=== PATIENT | male | born 1960 | race Caucasian/White ===

== ENCOUNTER 2019-07-12 13:11 | Outpatient (CLI) | payer MEDICAID, SELFPAY ==
--- NOTE | 2019-07-12 | MR_ITS ---
WS: [id number] MRI BRAIN WITHOUT CONTRAST HISTORY: HISTORY OF CVA WITH RESIDUAL DEFICIT COMPARISON: None available. TECHNIQUE: Diffusion imaging, multiplanar T1, T2 and FLAIR imaging obtained. No evidence for acute infarct. Moderate periventricular confluent white matter signal abnormality. Th ere is additional subcortical white matter signal abnormalities. Prior lacunar infarct bilateral caud ate heads, RIGHT mallory and thalamus. Focal area of encephalomalacia with volume loss involving the pos terior RIGHT frontal lobe. No acute hemorrhage. No prior hemorrhage. Ventricles and extra-axial spaces are mildly dilated. No inferior displacement of cerebellar tonsils. The sella turcica and pituitary gland are unremarkabl e. Posterior fossa is also unremarkable. Dural venous sinuses and diomede of Ramírez demonstrate no abnormality on this unenhanced studies. Paranasal sinuses: Clear. Mastoid air cells: Normal. Calvarium and scalp: Intact. MR/MR head wo con* [id number] IMPRESSION: 1. No acute infarct or hemorrhage. 2. Moderate atrophy with extensive chronic white matter disease and numerous b ilateral lacunar infarcts as described above.
== END 2019-07-12 13:12 | disposition home or self-care (01) ==
LOC: RADSHAW 13:14
PROVIDERS: PCP Physician Assistant Medical; Visit Provider Physician Assistant Medical
DX: R51 Headache (principal); Z86.73 Personal history of transient ischemic attack (TIA), and cerebral infarction without residual deficits; G31.9 Degenerative disease of nervous system, unspecified
CPT/HCPCS: 70551

== ENCOUNTER 2020-01-31 08:33 | Inpatient (IN) | payer MEDICAID, SELFPAY ==
[2020-01-31] VITALS (20 sets, daily range): BP systolic 107–149; BP diastolic 56–97; PULSE 80–106; RESP 11–27; TEMP 36.4–37.6; O2SAT 87–100
--- NOTE | 2020-01-31 08:43 | XRR_ITS ---
PROCEDURE INFORMATION: Exam: XR Chest, 1 View Exam date and time: 01/31/2020 8:56 AM Age: 59 years old Clinical indication: Dyspnea TECHNIQUE: Imaging protocol: XR of the chest Views: 1 view. COMPARISON: No relevant prior studies available. FINDINGS: Lungs: Patchy diffuse interstitial and alveolar airspace disease including rather dense consolidation within the lung bases left greater than right. Pleural space: Subpulmonic effusions left greater than right. Moderate on the left. Heart/Mediastinum: Unremarkable. No cardiomegaly. Bones/joints: Unremarkable. XR/XR chest 1V portable [id number] IMPRESSION: . Patchy diffuse interstitial and alveolar airspace disease including rather dense consolidation within the lung bases left greater than right. . Edema and/or pneumonia. Subpulmonic effusions left greater than right. Moderate on the left.
--- NOTE | 2020-01-31 08:45 | ECG_ITS ---
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 Measurements Intervals [place] Rate: 94 P: 76 LA: 193 QRS: 65 QRSD: 101 T: 215 QT: 364 QTc: 456 Interpretive Statements SINUS RHYTHM LEFT VENTRICULAR HYPERTROPHY AND ST-T CHANGE [VOLTAGE CRITERIA PLUS ST/T ABNORMALITY] No previous ECG available for comparison Electronically Signed On 01-31-2020 22:29:01 WARP DOFFER by Mitul Dwyer M.D. [id number] f
[2020-01-31 08:55] LABS: Basophils % 0.2 %; Eosinophils % 0.3 %; Hematocrit 29.6 % (42.0-52.0); Lymphocytes # 0.5 10^3/uL (0.8-4.8); Mean Corpuscular HGB Conc 30.4 g/dL (30.0-36.0); Mean Corpuscular Hemoglobin 28.2 pg (28.0-34.0); Mean Corpuscular Volume 92.8 fL (80-94); Mean Platelet Volume 10.7 fL (7.4-10.4); Monocytes # 0.5 10^3/uL (0.2-0.9); Monocytes % 5.3 %; Neutrophils # 7.59 10^3/uL (1.8-7.7); Neutrophils % 87.9 %; Nucleated Red Blood Cells % 0 %; Platelet Count 194 10^3/cmm (130-400); Red Blood Count 3.19 10^6/uL (4.1-5.3); Red Cell Distribution Width 14.2 % (12.1-15.1); White Blood Count 8.7 10^3/uL (4.0-10.0)
[2020-01-31 09:10] LABS: ABG PCO2 43.1 mmHg (35-45); ABG PH Result 7.41 (7.35-7.45); Arterial Blood Gas Hematocrit 24.7 % (42-52); Base Excess ABG 2.2 mmol/L (-2.0-2.0); Blood Gas Allen Test Pos; Blood Gas Operator Identificat CAK; Blood Gas Sample Site Radial, left; Blood Gas Sample Type Arterial; HCO3 ABG 27.2 mmol/L (22-26); Oxygen Device NRB; PO2 ABG 63.3 mmHg (80.0-100.0)
[2020-01-31 09:12] LABS: Fibrinogen 431 mg/dL (174-498)
[2020-01-31 09:22] LABS: D Dimer 7.27 ug/mIFEU (0-0.59)
--- NOTE | 2020-01-31 09:26 | CT_ITS ---
WS: [id number] CTA OF THE CHEST WITH PULMONARY EMBOLISM PROTOCOL TECHNIQUE: High-resolution contrast enhanced CTA of the chest with coronal and sagittal reformatted i mages with pulmonary embolism protocol. MIP images are also reviewed. CLINICAL INFORMATION: hypoxia COMPARISON: None. DLP: 618.[address] scans at [facility] use at least one of these dose optimization techniques: automat ed exposure control; mA and/or kV adjustment per patient size (includes targeted exams where dose is matched to clinical indication); or iterative reconstruction. FINDINGS: Proximal main pulmonary arteries are normal. Normal segmental and subsegmental pulmonary arteries. No evidence of pulmonary embolus. Moderate chronic emphysematous changes. Small right greater than left pleural effusions with compress lawrence atelectasis in the lung bases. Subsegmental atelectasis with subsegmental consolidation in the le ft lower lobe medially. A few hazy groundglass infiltrates in the right middle lobe and right lower l obe. Enlarged mediastinal and peribronchial lymph nodes likely reactive. Normal caliber ascending thoracic aorta. Chronic appearing aneurysmal descending thoracic aorta with chronic appearing dissection flap and per ipheral mural thrombus. Evidence of prior infrarenal aneurysm repair in the abdomen. Aneurysmal upper abdominal aorta measuring 5.1 x 4.4 cm AP by transverse. Bilateral renal cortical atrophy. Adrenal glands are normal. CT/CT angio chest PE protcl [id number] IMPRESSION: 1. No evidence of pulmonary embolus. 2. Small right greater than left pleural effusions with compressive atelectasi s in the lung bases. Subtotal subsegmental consolidative atelectasis in the lef t lower lobe. 3. A few hazy groundglass infiltrates in the right upper lobe and right middle lobe. 4. Reactive anterior mediastinal and peribronchial lymph nodes. 5. Aneurysmal descending thoracic aorta with chronic appearing dissection flap . Evidence of prior aneurysm repair in the infrarenal abdominal aorta. 6. Aneurysmal upper abdominal aorta measuring 5.1 x 4.4 CM. Notified Scout Green DO at 01/31/2020 2:20 PM.
--- NOTE | 2020-01-31 09:26 | W.ED.SOB ---
HPI - SOB/Dyspnea General: Chief Complaint: Shortness of Breath/Dyspnea Stated Complaint: DIFFICULTY BREATHING Time Seen by Provider: 01/31/20 08:35 History of Present Illness: HPI Narrative: 59-year-old male brought in by EMS from local retirement. Is a history of CVA they think he may have aspirated overnight to get some food and something to drink evidently he was exposed to when he was on monitored he is having increased oxygen requirements requiring a mask now. Denies chest pain no abdominal pain no vomiting or diarrhea he is complaining of shortness of breath. MD elicited complaint: shortness of breath and cough Pertinent past history: COPD and pneumonia Onset (ago): hour(s) Timing: constant Severity: severe Exacerbating factors: lying flat Relieving factors: oxygen, rest and upright position Known history of: aspiration pneumonia Associated symptoms: Reports chest congestion, chest pain and cough; Deny abdominal pain, diaphoresis, dizziness, extremity pain, fever(s), hemoptysis, lightheadedness, myalgias, nausea, orthopnea, palpitations, paresthesias, polydipsia, polyuria, rash, sense of impending doom, syncope or vomiting Treatment prior to arrival: oxygen and bronchodilator Review of Systems Const: Denies: fever(s) or diaphoresis ENMT: Denies: throat pain, ear or mastoid pain, nasal discharge or nasal congestion Card: Reports: chest pain; Denies: palpitations, lightheadedness, syncope or orthopnea Resp: Reports: chest congestion; Denies: hemoptysis GI: Denies: abdominal pain, nausea or vomiting : Denies: flank pain, dysuria, urinary frequency or urinary urgency Musc: Denies: extremity pain Skin/Breast: Denies: rash or pruritus Neuro: Denies: dizziness Endo: Denies: polydipsia [facility] ED PFSH: Medical History (Updated 01/31/20 @ 14:48 by Scout Green DO) CVA (cerebral vascular accident) Physical Exam HENMT: COMMON NORMALS: normocephalic and atraumatic HEAD & SCALP: normocephalic and atraumatic Eye: COMMON NORMALS: Equal, round and reactive pupils present, EOMs intact bilaterally, conjunctivae normal and no scleral icterus CONJUNCTIVA: Yes conjunctivae normal PUPIL: Yes Equal, round and reactive pupils present Neck/C-Spine: COMMON NORMALS: full ROM, no lymphadenopathy, supple and no JVD Lymph: LYMPHATIC: no lymphadenopathy noted and no lymphedema noted Cardio: COMMON NORMALS: no JVD, regular rate, regular rhythm and No murmurs present (Cardio) RATE: regular rate RHYTHM: regular rhythm GI: COMMON NORMALS: Soft to palpation and No hepatosplenomegaly present AUSCULTATION: Yes normoactive bowel sounds PALPATION: Yes Soft to palpation, No Tenderness to palpation present (GI), No Guarding due to palpation present (GI) and Yes No hepatosplenomegaly present Extremity: COMMON NORMALS: normal to inspection, capillary refill normal, no clubbing, cyanosis or edema, no calf tenderness and no pedal edema Skin: COMMON NORMALS: no rashes or lesions noted GENERAL SKIN EXAM: no rashes or lesions noted Course Vital Signs: Vital signs: Vital Signs Temperature 97.5 F L 01/31/20 08:33 Pulse Rate 83 01/31/20 14:15 Respiratory Rate 20 H 01/31/20 11:13 Blood Pressure 127/69 01/31/20 11:13 Pulse Oximetry 93 01/31/20 14:15 MDM - SOB/Dyspnea MDM Narrative: Medical decision making narrative: Patient has chronic kidney disease looks like is baseline kidney function is 2.2-2.5 he is hyperkalemic however which is new. We are giving him IV fluid boluses D-dimer is elevated but his CTA was negative he does have bilateral pneumonias we will put him on Zosyn and Levaquin initially here discussed with Dr. Rawls will admit him to the ICU continue on BiPAP. Lab Data: Labs: Lab Results 01/31/20 01/31/20 01/31/20 Range/Units 08:50 08:50 08:50 WBC 8.7 (4.0-10.0) 10^3/ uL RBC 3.19 L (4.1-5.3) 10^6/u L Hgb 9.0 L (11.7-16.6) g/dL Hct 29.6 L (42.0-52.0) % MCV 92.8 (80-94) fL MCH 28.2 (28.0-34.0) pg MCHC 30.4 (30.0-36.0) g/dL RDW 14.2 (12.1-15.1) % Plt Count 194 (130-400) 10^3/c mm MPV 10.7 H (7.4-10.4) fL Neut % (Auto) 87.9 % Lymph % (Auto) 6.0 % Hooker % (Auto) 5.3 % Eos % (Auto) 0.3 % Baso % (Auto) 0.2 % Neut # (Auto) 7.59 (1.8-7.7) 10^3/u L Lymph # (Auto) 0.5 L (0.8-4.8) 10^3/u L Hooker # (Auto) 0.5 (0.2-0.9) 10^3/u L Eos # (Auto) 0.0 (0.0-0.8) 10^3/u L Baso # (Auto) 0.0 (0.0-0.1) 10^3/u L Nucleated RBC % (a uto) 0 % Nucleated RBCs # 0.0 /100WBC Fibrinogen 431 (174-498) mg/dL D-Dimer 7.27 H (0-0.59) ug/mIFE U Specimen Type Sample Site ABG pH (7.35-7.45) ABG pCO2 (35-45) mmHg ABG pO2 (80.0-100.0) mmH g ABG HCO3 (22-26) mmol/L ABG Base Excess (-2.0-2.0) mmol/ L Shen Test Hematocrit (42-52) % O2 Delivery Device O2 Liters/Min % Health Associate ID Sodium Cancelled Potassium Cancelled Chloride Cancelled Carbon Dioxide Cancelled Anion Gap Cancelled BUN Cancelled Creatinine Cancelled GFR Calculation Cancelled Glucose Cancelled Calculated Osmolal ity Cancelled Lactic Acid (0.5-2.2) mmol/L Calcium Cancelled Total Bilirubin Cancelled AST Cancelled ALT Cancelled Alkaline Phosphata se Cancelled Lactate Dehydrogen ase Cancelled C-Reactive Protein Cancelled Total Protein Cancelled Albumin Cancelled Globulin Cancelled Procalcitonin Cancelled SARS-CoV-2 Ag (Rap id) (Negative) 01/31/20 01/31/20 01/31/20 Range/Units 08:58 09:06 09:38 WBC (4.0-10.0) 10^3/ uL RBC (4.1-5.3) 10^6/u L Hgb (11.7-16.6) g/dL Hct (42.0-52.0) % MCV (80-94) fL MCH (28.0-34.0) pg MCHC (30.0-36.0) g/dL RDW (12.1-15.1) % Plt Count (130-400) 10^3/c mm MPV (7.4-10.4) fL Neut % (Auto) % Lymph % (Auto) % Hooker % (Auto) % Eos % (Auto) % Baso % (Auto) % Neut # (Auto) (1.8-7.7) 10^3/u L Lymph # (Auto) (0.8-4.8) 10^3/u L Hooker # (Auto) (0.2-0.9) 10^3/u L Eos # (Auto) (0.0-0.8) 10^3/u L Baso # (Auto) (0.0-0.1) 10^3/u L Nucleated RBC % (a uto) % Nucleated RBCs # /100WBC Fibrinogen (174-498) mg/dL D-Dimer (0-0.59) ug/mIFE U Specimen Type Arterial Sample Site Radial, left ABG pH 7.41 (7.35-7.45) ABG pCO2 43.1 (35-45) mmHg ABG pO2 63.3 L (80.0-100.0) mmH g ABG HCO3 27.2 H (22-26) mmol/L ABG Base Excess 2.2 H (-2.0-2.0) mmol/ L Shen Test Pos Hematocrit 24.7 L (42-52) % O2 Delivery Device Nrb O2 Liters/Min 15.0 % Health Associate ID Cak Sodium 134 L Potassium 5.8 H Chloride 93 L Carbon Dioxide 26 Anion Gap 20.8 H BUN 39 H Creatinine 2.7 H GFR Calculation 24.3 L Glucose 127 H Calculated Osmolal ity 289 Lactic Acid (0.5-2.2) mmol/L Calcium 9.2 Total Bilirubin 0.7 AST 19 ALT 7 Alkaline Phosphata se 159 H Lactate Dehydrogen ase 259 H C-Reactive Protein 25.1 H Total Protein 6.5 L Albumin 3.9 Globulin 2.6 Procalcitonin 0.28 SARS-CoV-2 Ag (Rap id) Negative (Negative) 01/31/20 Range/Units 10:49 WBC (4.0-10.0) 10^3/ uL RBC (4.1-5.3) 10^6/u L Hgb (11.7-16.6) g/dL Hct (42.0-52.0) % MCV (80-94) fL MCH (28.0-34.0) pg MCHC (30.0-36.0) g/dL RDW (12.1-15.1) % Plt Count (130-400) 10^3/c mm MPV (7.4-10.4) fL Neut % (Auto) % Lymph % (Auto) % Hooker % (Auto) % Eos % (Auto) % Baso % (Auto) % Neut # (Auto) (1.8-7.7) 10^3/u L Lymph # (Auto) (0.8-4.8) 10^3/u L Hooker # (Auto) (0.2-0.9) 10^3/u L Eos # (Auto) (0.0-0.8) 10^3/u L Baso # (Auto) (0.0-0.1) 10^3/u L Nucleated RBC % (a uto) % Nucleated RBCs # /100WBC Fibrinogen (174-498) mg/dL D-Dimer (0-0.59) ug/mIFE U Specimen Type Sample Site ABG pH (7.35-7.45) ABG pCO2 (35-45) mmHg ABG pO2 (80.0-100.0) mmH g ABG HCO3 (22-26) mmol/L ABG Base Excess (-2.0-2.0) mmol/ L Shen Test Hematocrit (42-52) % O2 Delivery Device O2 Liters/Min % Health Associate ID Sodium Potassium Chloride Carbon Dioxide Anion Gap BUN Creatinine GFR Calculation Glucose Calculated Osmolal ity Lactic Acid 1.4 (0.5-2.2) mmol/L Calcium Total Bilirubin AST ALT Alkaline Phosphata se Lactate Dehydrogen ase C-Reactive Protein Total Protein Albumin Globulin Procalcitonin SARS-CoV-2 Ag (Rap id) (Negative) Discharge Plan Discharge Patient Disposition: Admitted As Inpatient Clinical Impression: Aspiration pneumonia, Acute hyperkalemia, Chronic kidney disease (CKD) Condition: Stable Coding Level of Care Code ED Discount Clerk for Chg Fwd Exam Comprehensive
[2020-01-31 10:35] LABS: Procalcitonin 0.28 ng/mL (0-0.5)
[2020-01-31 10:46] LABS: SARS Covid-2 Antigen Negative (Negative)
[2020-01-31 10:46] LABS: Alanine Aminotransferase 7 U/L (0-41); Albumin Level 3.9 g/dL (3.5-5.2); Alkaline Phosphatase 159 IU/L (40-130); Anion Gap 20.8 (5-19); Aspartate Amino Transferase 19 U/L (0-40); Blood Urea Nitrogen 39 mg/dL (6-20); C Reactive Protein 25.1 mg/L (0.0-4.9); Calcium 9.2 mg/dL (8.5-10.5); Carbon Dioxide 26 mmol/L (22-29); Chloride 93 mmol/L (98-107); Globulin 2.6 g/dL (1.3-4.6); Glomerular Filtration Rate 24.3 mL/min (90-130); Glucose 127 mg/dL (65-115); Osmolality Calculated 289 mOsm/kg (285-295); Potassium 5.8 mmol/L (3.5-5.1); Sodium 134 mmol/L (136-145); Total Bilirubin 0.7 mg/dL (0.15-1.2); Total Protein 6.5 g/dL (6.6-8.7)
[2020-01-31 10:48] LABS: Lactate Dehydrogenase 259 U/L (135-225)
[2020-01-31 11:51] LABS: Lactic Sepsis W/Reflex 1.4 mmol/L (0.5-2.2)
[2020-01-31] MEDS: sodium chloride 0.9% 1,000 ML 999 ML IV (14:17)
[2020-01-31] MEDS: piperacillin-tazobactam 3.375 GM in sodium chloride 0.9% (plus) 50 ML IV (14:17)
[2020-01-31] MEDS: levofloxacin-dextrose 5 % 500 MG/100 ML PREMIX 100 MG IV (14:50)
[2020-01-31] MEDS: calcium gluconate 0.1 gm/mL 10% SDV 10mL 2 GM IVP (15:05)
[2020-01-31] MEDS: insulin regular-human 100 units/1 mL 10 UNIT IVP (15:06)
[2020-01-31] MEDS: dextrose 50% syringe 50 mL IVP (15:07)
[2020-01-31 15:14] LABS: ABG PCO2 43.5 mmHg (35-45); ABG PH Result 7.42 (7.35-7.45); Alveolar-Arterial Oxygen Gradi 12.5 mmHg (5-10); Arterial Blood Gas Hematocrit 22.5 % (42-52); Base Excess ABG 3.5 mmol/L (-2.0-2.0); Blood Gas Operator Identificat AMH; Blood Gas Sample Site Brachial, right; Blood Gas Sample Type Arterial; Carboxyhemoglobin 2.2 %THgb (0.4-20.1); HCO3 ABG 28.3 mmol/L (22-26); HGB O2 Sat 90.7 % (95-100); Ionized Calcium Level - ABG 1.1 mmol/L (1.1-1.4); Methemoglobin 0.9 % (0.4-1.5); Oxygen Device BIPAP; Oxygen Saturation ABG 93.6; Potassium Level - ABG 4.8 mmol/L (3.5-5.0); Total Hemoglobin 7.3 g/dL (14-18)
--- NOTE | 2020-01-31 15:31 | ECG_ITS ---
[facility] Test Date: 2020-01-31 Pat Name: James Bell Department: Room: Gender: Male Bi Developer: : 1960 Requested By: Scout Becerra Order Number: [id number] Neha MD: Mitul Dwyer M.D. Measurements Intervals [place] Rate: 89 P: 84 ND: 170 QRS: 42 QRSD: 93 T: 154 QT: 355 QTc: 434 Interpretive Statements SINUS RHYTHM LEFT VENTRICULAR HYPERTROPHY AND ST-T CHANGE [VOLTAGE CRITERIA PLUS ST/T ABNORMALITY] ST-T changes, could be secondary to LVH No previous ECG available for comparison Electronically Signed On 01-31-2020 22:27:10 PAPER COATING SUPERVISOR by Mitul Dwyer M.D. [id number]
--- NOTE | 2020-01-31 15:43 | PM.HP ---
Providers/Chief Complaint Primary Care Provider: Wayne Contreras Chief Complaint: DIFFICULTY BREATHING History of Present Illness James Bell is a 59 year old male with a past medical history of systolic and diastolic heart failure, ejection fraction of 25%, cardiorenal syndrome history of AAA repair, CKD stage IV, left arm failed fistul, a history of CVA with chronic dysphagia and left-sided weakness, hypertension, hyperlipidemia, GERD, COPD, chronic smoker, who presents to [facility] due to shortness of breath. Currently patient is on the BiPAP, when asked why he is here, he tells me he is short of breath, when asked why, he tells me because he has been smoking since he was a kid, reports shortness of breath at rest and with exertion, no fevers, chills, has a chronic cough, no known exposure to COVID-19, has a history of heart failure, is on Bumex, tells me he urinates a lot, has a history of CKD with a left arm failed fistula, is not on dialysis yet, not currently smoking, no nausea, no vomiting, no hemoptysis, no bilateral calf swelling. I spoke to [facility] retirement, patient has been admitted there for heart failure, from [facility], sounds like he was admitted at [facility] for CHF exacerbation. I am waiting the records at this point. The patient has a history of CVA within the last year, has chronic dysphagia, initially was on nectar thickened liquids, transition to clears, then to soft mechanical. This happened in the last 24 hours, according to nursing staff, patient was sneaking food from the refrigerator, no one noticed any choking episodes, no coughing episodes. But a few hours after he was complaining of shortness of breath. This morning he was complaining of shortness of breath, his O2 sats were in the low 50s, they put him on a few liters of oxygen, it came up to the high 70s, still complaining of shortness of breath so he was brought [facility] for further evaluation. Review of records show the patient was discharged 01/19/2020, from [facility] for acute respiratory failure secondary to acute decompensated systolic heart failure, cardiorenal syndrome, PNA, pulmonary edema, pneumonia, elevated troponin, Review of Systems Const: Denies: fever(s), chills, fatigue or malaise Eyes: Denies: change in vision or blurry vision ENMT: Denies: nasal congestion Card: Denies: chest pain or palpitations Resp: Reports: dyspnea and non-productive cough; Denies: productive cough or wheezing GI: Denies: abdominal pain, nausea, vomiting, hematemesis, diarrhea, constipation, hematochezia or melena : Denies: flank pain, difficulty urinating, dysuria or urinary frequency Musc: Denies: neck pain or back pain Skin/Breast: Denies: rash Neuro: Denies: headache(s), dizziness or vertigo Psych: Denies: anxiety or depression Endo: Denies: polyuria or polydipsia Medications/Allergies Home Medications Medication Instructions Recorded Confirmed Last Taken Type albuterol sulfate [ProAir HFA] 2 puff INHALATION Q6H PRN 01/31/20 01/31/20 Unknown History atenolol 100 mg PO DAILY 01/31/20 01/31/20 01/30/20 History clonidine HCl 0.3 mg PO TID 01/31/20 01/31/20 01/30/20 History doxazosin 2 mg PO BID 01/31/20 01/31/20 01/30/20 History gabapentin 100 mg PO BEDTIME 01/31/20 01/31/20 01/30/20 History potassium chloride 20 meq PO DAILY 01/31/20 01/31/20 01/30/20 History valproic acid 250 mg PO DAILY 01/31/20 01/31/20 01/30/20 History Allergies Allergy/AdvReac Type Severity Reaction Status Date / Time clopidogrel [From Plavix] Allergy Unknown Verified 01/31/20 08:43 hydralazine Allergy Unknown Verified 01/31/20 08:43 hydrochlorothiazide Allergy Unknown Verified 01/31/20 08:43 lisinopril Allergy Unknown Verified 01/31/20 08:43 PFSH Acute PFSH: Medical History (Updated 01/31/20 @ 16:20 by Erwin Phillips MD) Combined systolic and diastolic heart failure COPD (chronic obstructive pulmonary disease) CVA (cerebral vascular accident) Dialysis AV fistula malfunction Dysphagia Surgical History (Updated 01/31/20 @ 15:48 by Erwin Phillips MD) History of AAA (abdominal aortic aneurysm) repair Family History (Updated 01/31/20 @ 15:49 by Erwin Phillips MD) Father AAA (abdominal aortic aneurysm, ruptured) Social History (Updated 01/31/20 @ 15:49 by Erwin Phillips MD) Smoking and tobacco status: former smoker Alcohol intake: former Substance/Drug Use: never Vitals/I&O/Wt Last Vital Signs Temp 97.5 F L 01/31/20 08:33 Pulse 83 01/31/20 14:15 Resp 20 H 01/31/20 11:13 BP 127/69 01/31/20 11:13 Pulse Ox 93 01/31/20 14:15 Weight last 48 hrs Weight 57.516 kg Physical Exam Const: COMMON NORMALS: no acute distress and patient oriented x3 GENERAL APPEARANCE: cooperative and comfortable HENMT: COMMON NORMALS: normocephalic HEAD & SCALP: normocephalic Eye: COMMON NORMALS: Equal, round and reactive pupils present and EOMs intact bilaterally GENERAL EYE: appearance normal, both eyes and all related structures PUPIL: Yes Equal, round and reactive pupils present Neck/C-Spine: COMMON NORMALS: full ROM, no lymphadenopathy, no JVD and Thyroid normal THYROID: Thyroid normal Lymph: LYMPHATIC: no lymphadenopathy noted Resp: COMMON NORMALS: normal respiratory effort and No retractions EFFORT & INSPECTION: Yes tachypneic and Yes uses accessory muscles AUSCULTATION: crackles and wheezes Cardio: COMMON NORMALS: no JVD, regular rate, regular rhythm, S1 normal heart sound present, S2 normal heart sound present, No gallops present (Cardio), No clicks present (Cardio) and No murmurs present (Cardio) RATE: regular rate RHYTHM: regular rhythm HEART SOUNDS: S1 normal heart sound present and S2 normal heart sound present GI: COMMON NORMALS: Normal to inspection, nondistended, normoactive bowel sounds present, Soft to palpation, non-tender and No hepatosplenomegaly present PALPATION: Yes Soft to palpation and Yes No hepatosplenomegaly present Extremity: COMMON NORMALS: normal to inspection, full ROM and no pedal edema Neuro: COMMON NORMALS: patient oriented x3, CN's II-XII intact bilaterally, moves all extremities and no focal motor deficits Psych: COMMON NORMALS: mental status grossly normal, Normal thought process present and cooperative THOUGHT PROCESS: Normal thought process present Skin: NARRATIVE SKIN EXAM: Left arm AV fistula Data : 01/31/20 08:50 01/31/20 09:38 Micro: Microbiology 01/31/20 10:53 Blood Culture - Preliminary Blood SPECIMEN COLLECTED 01/31/20 10:49 Blood Culture - Preliminary Blood SPECIMEN COLLECTED A&P Assessment and plan (1) Acute respiratory failure with hypoxia: -Secondary to aspiration pneumonia, pulmonary edema, acute combined systolic or diastolic heart failure, COPD exacerbation -Influenza pending, rapid Covid negative CTA 1. No evidence of pulmonary embolus. 2. Small right greater than left pleural effusions with compressive atelectasis in the lung bases. Subtotal subsegmental consolidative atelectasis in the left lower lobe. 3. A few hazy groundglass infiltrates in the right upper lobe and right middle lobe. 4. Reactive anterior mediastinal and peribronchial lymph nodes. 5. 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 Evidence of prior aneurysm repair in the infrarenal abdominal aorta. 6. Aneurysmal upper abdominal aorta measuring 5.1 x 4.4 CM. -History of smoking -History of combined systolic diastolic heart failure, last echo showed EF of 25% -No history of obstructive CAD as per my knowledge, no history of cardiac cath, no history of CABG -Recent hospitalization at [facility], hospitalization for pneumonia, has risk factors for healthcare associate pneumonia -White blood cell count 8.7, hemoglobin 9.0 -ABG shows pH 7.42, PCO2 43.5, PO2 65 8, creatinine 2.7 PLAN: -Patient DNR/DNI, confirmed with nurse at bedside -Heparin for DVT prophylaxis -Solu-Medrol 40 IV every 8 hours -DuoNeb treatment -Lasix 40 mg IV twice daily -Broad-spectrum antibiotics vancomycin, Zosyn and azithromycin -Sputum cultures, blood cultures, urine bacterial antigens, urine cultures -Daily I's and O's, monitor urine output, -Monitor creatinine as received contrast, creatinine 2.7 -Monitor respiratory status closely -BiPAP during the day, will try to wean to high flow -Currently n.p.o., speech therapy to see tomorrow morning, due to chronic dysphagia, high risk aspiration Status: Acute (2) Chronic kidney disease (CKD): -Failed left arm AV fistula, not accessible -Baseline creatinine not known, currently 2.7, it was high as 3 at [facility] -Has components of cardiorenal syndrome -Diuresis as above Status: Acute (3) CVA (cerebral vascular accident): -Left-sided weakness -Chronic dysphagia -On [facility] admission, refused modified barium swallow -Was on nectar thickened, transition to thin liquids, then to soft mechanical, then became shortness of breath -Keep n.p.o., until speech therapy eval, will likely require a barium swallow Status: Acute (4) Dialysis AV fistula malfunction: Status: Acute (5) COPD (chronic obstructive pulmonary disease): Status: Acute (6) Aspiration pneumonia: Status: Acute (7) Acute hyperkalemia: -Status post insulin, D50, calcium gluconate Status: Acute (8) Anemia: -Acute on chronic anemia -Currently 9.0 monitor Status: Acute (9) Combined systolic and diastolic heart failure: -Last EF was 25% -I do not know if he has had a coronary angiogram, not in the records, patient denies any coronary angiogram Status: Acute Attestations Medical Necessity Statement*: Patient requires hospitalization, inpatient, greater than 2 midnights, for acute respiratory failure secondary to aspiration pneumonia, CHF, COPD, pulmonary edema Coding Level of Care Code Acute Guest Service Aide for Chg Fwd Exam Comprehensive Diagnoses Acute respiratory failure with hypoxia J96.01 Chronic kidney disease (CKD) N18.9 CVA (cerebral vascular accident) I63.9 Dialysis AV fistula malfunction T82.590A COPD (chronic obstructive pulmonary disease) J44.9 Aspiration pneumonia J69.0 Acute hyperkalemia E87.5 Anemia D64.9 Combined systolic and diastolic heart failure I50.40
[2020-01-31 18:06] LABS: Glucose Point of Care 89 mg/dL (70-110)
[2020-01-31 19:35] LABS: Lactate (Lactic Acid level) 1.4 mmol/L (0.5-2.2)
[2020-01-31 20:00] LABS: Troponin(5th) Baseline 315 ng/L (0-15)
[2020-01-31] MEDS: gabapentin 100 mg Capsule PO (20:25)
[2020-01-31] MEDS: carvedilol 6.25 mg Tablet PO (20:26)
[2020-01-31] MEDS: enoxaparin 40 mg/0.4 mL Syringe SUBCUT (20:28)
[2020-01-31] MEDS: FUROsemide 10 mg/mL SDV 4mL 40 MG IVP (20:28)
[2020-01-31] MEDS: azithromycin 500 MG in sodium chloride 0.9% 250 ML 250 MG IV (20:33)
[2020-01-31] MEDS: doxazosin 4 mg Tablet PO (20:53)
[2020-01-31 21:47] LABS: Troponin 5 2HR 360.5 ng/L (0-15); Troponin 5 2HR Delta 45.5 ABS# (0-10)
[2020-01-31 22:10] LABS: NT Pro B Type Natriuretic Pept > 70000 pg/mL (0-125)
--- NOTE | 2020-01-31 22:12 | ECG_ITS ---
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 Measurements Intervals [place] Rate: 95 P: 72 AL: 167 QRS: 28 QRSD: 98 T: 116 QT: 350 QTc: 440 Interpretive Statements SINUS RHYTHM LEFT VENTRICULAR HYPERTROPHY AND ST-T CHANGE [VOLTAGE CRITERIA PLUS ST/T ABNORMALITY] Compared to ECG 01/31/2020 16:26:59 No significant changes Electronically Signed On 02-01-2020 6:51:53 SENIOR DIRECTOR OF STRATEGY by Miri Jaime M.D. [id number] f
[2020-01-31 22:58] LABS: Glucose Point of Care 117 mg/dL (70-110)
[2020-01-31] MEDS: vancomycin 1,000 MG in sodium chloride 0.9% 250 ML 250 MG IV (23:38)
[2020-01-31 23:54] LABS: Influenza A by IFA Negative (Negative); Influenza B by IFA Negative (Negative)
[2020-02-01] VITALS (58 sets, daily range): BP systolic 108–179; BP diastolic 57–110; PULSE 83–107; RESP 5–24; TEMP 36.6–36.9; O2SAT 86–99
[2020-02-01 01:07] LABS: Basophils % 0.1 %; Eosinophils % 0.1 %; Hematocrit 22.9 % (42.0-52.0); Hemoglobin 6.8 g/dL (11.7-16.6); Lymphocytes # 0.2 10^3/uL (0.8-4.8); Lymphocytes % 2.6 %; Mean Corpuscular HGB Conc 29.7 g/dL (30.0-36.0); Mean Corpuscular Hemoglobin 27.6 pg (28.0-34.0); Mean Corpuscular Volume 93.1 fL (80-94); Mean Platelet Volume 9.9 fL (7.4-10.4); Monocytes # 0.1 10^3/uL (0.2-0.9); Monocytes % 1.9 %; Neutrophils # 6.53 10^3/uL (1.8-7.7); Nucleated Red Blood Cells % 0 %; Platelet Count 126 10^3/cmm (130-400); Red Blood Count 2.46 10^6/uL (4.1-5.3); Red Cell Distribution Width 14.6 % (12.1-15.1); White Blood Count 6.9 10^3/uL (4.0-10.0)
[2020-02-01] MEDS: lidocaine 2% Urojet 20 mL TOPICAL (01:10)
[2020-02-01] MEDS: piperacillin-tazobactam 3.375 GM in sodium chloride 0.9% (plus) 50 ML IV ×3 (01:10→17:32)
[2020-02-01 01:23] LABS: Troponin 5 6HR Delta 7.3 ng/L (0-12)
[2020-02-01 01:28] LABS: Troponin 5 6HR 322.3 ng/L (0-15)
[2020-02-01 01:30] LABS: Procalcitonin 0.31 ng/mL (0-0.5)
[2020-02-01 01:35] LABS: Alanine Aminotransferase 6 U/L (0-41); Albumin Level 2.9 g/dL (3.5-5.2); Alkaline Phosphatase 110 IU/L (40-130); Anion Gap 16.3 (5-19); Aspartate Amino Transferase 16 U/L (0-40); Blood Urea Nitrogen 35 mg/dL (6-20); C Reactive Protein 43.5 mg/L (0.0-4.9); Calcium 7.8 mg/dL (8.5-10.5); Carbon Dioxide 21 mmol/L (22-29); Chloride 105 mmol/L (98-107); Globulin 2.2 g/dL (1.3-4.6); Glomerular Filtration Rate 29.2 mL/min (90-130); Glucose 101 mg/dL (65-115); Osmolality Calculated 294 mOsm/kg (285-295); Phosphorus 3.2 mg/dL (2.5-4.5); Potassium 4.3 mmol/L (3.5-5.1); Sodium 138 mmol/L (136-145); Thyroid Stimulating Hormone 1.17 uIU/mL (0.27-4.20); Total Bilirubin 0.8 mg/dL (0.15-1.2); Total Protein 5.1 g/dL (6.6-8.7)
[2020-02-01 01:41] LABS: D Dimer 5.42 ug/mIFEU (0-0.59); INR 1.37 (0.8-1.2)
[2020-02-01 01:43] LABS: Chol HDL Ratio 3.24 mg/dL (1.0-5.00); Cholesterol 136 mg/dL (0-200); Creatine Phosphokinase 64 U/L (39-308); LDL Cholesterol Calculated 81 mg/dL (50-129); LDL HDL Ratio 1.93 RATIO (0.00-3.22); Triglycerides 65 mg/dL (0-150)
[2020-02-01 02:08] LABS: HDL Cholesterol 42 mg/dL (60-100); NT Pro B Type Natriuretic Pept > 70000 pg/mL (0-125)
[2020-02-01] MEDS: FUROsemide 10 mg/mL SDV 4mL 40 MG IVP (02:35)
[2020-02-01 04:25] LABS: Estmated Average Glucose 80; Hemoglobin A1C 4.4 % (4.0-6.0)
[2020-02-01 05:30] LABS: Basophils % 0.1 %; Hematocrit 24.4 % (42.0-52.0); Hemoglobin 7.3 g/dL (11.7-16.6); Lymphocytes # 0.2 10^3/uL (0.8-4.8); Lymphocytes % 2.6 %; Mean Corpuscular HGB Conc 29.9 g/dL (30.0-36.0); Mean Corpuscular Hemoglobin 27.8 pg (28.0-34.0); Mean Corpuscular Volume 92.8 fL (80-94); Mean Platelet Volume 10.1 fL (7.4-10.4); Monocytes # 0.1 10^3/uL (0.2-0.9); Monocytes % 1.2 %; Neutrophils % 95.7 %; Nucleated Red Blood Cells % 0 %; Platelet Count 146 10^3/cmm (130-400); Red Blood Count 2.63 10^6/uL (4.1-5.3); Red Cell Distribution Width 14.6 % (12.1-15.1); White Blood Count 7.6 10^3/uL (4.0-10.0)
[2020-02-01 05:39] LABS: Alanine Aminotransferase 6 U/L (0-41); Albumin Level 3.3 g/dL (3.5-5.2); Alkaline Phosphatase 126 IU/L (40-130); Anion Gap 18.1 (5-19); Aspartate Amino Transferase 17 U/L (0-40); Blood Urea Nitrogen 41 mg/dL (6-20); Calcium 9.2 mg/dL (8.5-10.5); Carbon Dioxide 24 mmol/L (22-29); Chloride 99 mmol/L (98-107); Globulin 2.7 g/dL (1.3-4.6); Glomerular Filtration Rate 23.3 mL/min (90-130); Glucose 138 mg/dL (65-115); Osmolality Calculated 294 mOsm/kg (285-295); Potassium 5.1 mmol/L (3.5-5.1); Sodium 136 mmol/L (136-145); Total Bilirubin 0.9 mg/dL (0.15-1.2)
[2020-02-01 05:49] LABS: ABG PCO2 45.3 mmHg (35-45); ABG PH Result 7.36 (7.35-7.45); Arterial Blood Gas Hematocrit 30.5 % (42-52); Base Excess ABG 0.2 mmol/L (-2.0-2.0); Blood Gas Sample Site Brachial, right; Blood Gas Sample Type Arterial; HCO3 ABG 25.8 mmol/L (22-26); Oxygen Device NC; PO2 ABG 82.4 mmHg (80.0-100.0)
--- NOTE | 2020-02-01 06:00 | ECG_ITS ---
[facility] Test Date: 2020-02-01 Pat Name: James Bell Department: Room: ICU10 Gender: Male Belt Fixer: : 1960 Requested By: Erwin Phillips Order Number: [id number] Neha MD: Miri Jaime M.D. Measurements Intervals [place] Rate: 85 P: 82 FL: 175 QRS: 208 QRSD: 103 T: 51 QT: 385 QTc: 460 Interpretive Statements SINUS RHYTHM MARKED RIGHT AXIS DEVIATION [QRS AXIS > 100] CONSIDER LIMB LEAD REVERSAL LEFT VENTRICULAR HYPERTROPHY AND ST-T CHANGE [VOLTAGE CRITERIA PLUS ST/T ABNORMALITY] Compared to ECG 01/31/2020 23:52:33 Right-axis deviation now present Right ventricular hypertrophy now present ST (T wave) deviation still present Electronically Signed On 02-01-2020 6:51:01 ROAD SERVICE LOCKSMITH by Miri Jaime M.D. [email or web address]/store/[id number] f
[2020-02-01 06:28] LABS: Coronavirus Lab Test PTC Negative
--- NOTE | 2020-02-01 07:00 | XR_ITS ---
WS: [id number] Portable AP upright chest, 02/01/2020 Clinical Data: sob Comparison: Portable chest, 01/31/2020 Findings: Bilateral lung opacities are present with more opacity on the right than the left. No pneum othorax is seen. The heart size remains the same. Monitor leads are on the chest wall. The probable b ilateral effusions remain unchanged. XR/XR chest 1V portable [id number] Impression: 1. No change in bilateral lung opacities consistent with pneumonia. 2. No change in bilateral pleural effusions.
[2020-02-01 08:34] LABS: Ferritin 136 ng/mL (30-400); Iron 27 ug/dL (59-158)
[2020-02-01] MEDS: ipratropium-albuterol 3 mL Neb INHALATION ×4 (08:34→21:50)
[2020-02-01] MEDS: pantoprazole 40 mg SDV IVP ×2 (09:01→20:03)
[2020-02-01] MEDS: bumetanide 0.25 mg/mL SDV 4 mL 1 MG IV (09:01)
[2020-02-01] MEDS: doxazosin 4 mg Tablet PO ×2 (09:02→20:40)
[2020-02-01] MEDS: amlodipine 10 mg Tablet PO (09:02)
[2020-02-01] MEDS: carvedilol 6.25 mg Tablet PO ×2 (09:03→17:31)
--- NOTE | 2020-02-01 09:45 | PC.NURSE ---
Noted pt's has allergy to Plavix and med ordered. Asked pt reaction. States med causes frequent vomitting. Medication held. Dr [facility] receiving med [facility] there. Med discontinued. Aspirin will be ordered instead. Also informed Dr that blood transfusion is being delayed d/t unable to achieve adequate IV access. TAMIKO Aviles attempting US guided IV access at this time.
--- NOTE | 2020-02-01 10:55 | PC.NURSE ---
IV access obtained by TAMIKO Saunders after multiple attempts d/t pt's inability to remain still even with second nurse assisting pt in holding arm still. Pt grateful for the assistance. Very pleasant and tolerated IV attempts fair. IV patent and intact. Blood return obtained. Will transfuse RBC at this time.
[2020-02-01] MEDS: aspirin 81 mg EC Tablet PO (11:16)
[2020-02-01] MEDS: sodium chloride 0.9% (100 ml) 100 ML (11:18)
[2020-02-01] MEDS: sucralfate 1 gm Tablet PO ×3 (11:19→20:03)
--- NOTE | 2020-02-01 11:31 | PC.NURSE ---
Pt tolerating blood transfusion well. IV site unremarkable. Pt denies pain, discomfort or SOB. VSS at this time. Pt afebrile. Will continue to monitor.
--- NOTE | 2020-02-01 12:00 | PC.NURSE ---
Swallow Study completed. [place] thickened liquids recommended. Therapist states pt refusing. Educated pt regarding risks of aspirating liquids. Pt indicated understanding but refused stating he ain't drinking that shit . Pt educated in depth regarding aspiration pneumonia and as possible outcome. Pt continues to refuse.
--- NOTE | 2020-02-01 13:21 | PC.NURSE ---
Dr Phillips notified of pt's SBP maintaining 160's-170's. Orders received.
[2020-02-01] MEDS: cloNIDine 0.1 mg Tablet PO ×2 (13:59→17:31)
--- NOTE | 2020-02-01 14:57 | P.PN_ITS ---
Subjective Subjective: Interval history: This morning patient was examined, he tells me that he is feeling better, is much more alert, denies any chest pain, denies any lightheadedness, denies any shortness of breath at rest, is on 12 L high flow, denies any history of coronary angiogram, he is not sure if he has had any cardiac stress testing Vitals/I&O/Wt Last Vital Signs Temp 98.1 F 02/01/20 11:05 Pulse 97 02/01/20 11:43 Resp 18 02/01/20 11:41 BP 165/70 02/01/20 13:59 Pulse Ox 96 02/01/20 11:41 01/31/20 02/01/20 02/01/20 22:59 06:59 14:59 Intake Total 1400 / 1400 50 / 1450 0 / 0 Output Total 375 / 375 350 / 725 Balance 1025 / 1025 -300 / 725 0 / 0 Weight last 48 hrs Weight 60.356 kg Weight 57.516 kg Physical Exam Const: COMMON NORMALS: no acute distress and patient oriented x3 HENMT: COMMON NORMALS: normocephalic HEAD & SCALP: normocephalic Neck/C-Spine: COMMON NORMALS: no JVD Resp: COMMON NORMALS: normal respiratory effort and No retractions AUSCULTATION: wheezes and diminished lung sounds bilateral in the lower lung be and diffuse Cardio: COMMON NORMALS: no JVD, regular rate, regular rhythm, S1 normal heart sound present and S2 normal heart sound present RATE: regular rate RHYTHM: regular rhythm HEART SOUNDS: S1 normal heart sound present and S2 normal heart sound present GI: COMMON NORMALS: Normal to inspection, nondistended, normoactive bowel sounds present, Soft to palpation, non-tender, No hepatosplenomegaly present, no masses and no bruits PALPATION: Yes Soft to palpation and Yes No hepatosplenomegaly present Extremity: COMMON NORMALS: capillary refill normal, no clubbing, cyanosis or edema, no calf tenderness and no pedal edema Neuro: COMMON NORMALS: patient oriented x3 Psych: COMMON NORMALS: mental status grossly normal Urinary Catheter Management^: Coude: Cath Placed During This Visit: yes Reason for Continuing Indwelling Catheter: Accurate Measurement of Urinary Output in Critically Ill Patients Urinary Catheter Date of Insertion: 02/01/20 Urinary Catheter Time of Insertion: 02:00 Data : 12/02/20 03:43 02/01/20 03:43 Micro: Microbiology 01/31/20 10:53 Blood Culture - Preliminary Blood NEGATIVE TO DATE 01/31/20 10:49 Blood Culture - Preliminary Blood NEGATIVE TO DATE 02/01/20 00:10 Bacterial Antigens - Final Urine,Clean Catch A&P Assessment and plan (1) Acute respiratory failure with hypoxia: -Secondary to aspiration pneumonia, pulmonary edema, acute combined systolic or diastolic heart failure, COPD exacerbation -Influenza pending, rapid Covid negative CTA 1. No evidence of pulmonary embolus. 2. Small right greater than left pleural effusions with compressive atelectasis in the lung bases. Subtotal subsegmental consolidative atelectasis in the left lower lobe. 3. A few hazy groundglass infiltrates in the right upper lobe and right middle lobe. 4. Reactive anterior mediastinal and peribronchial lymph nodes. 5. 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 Evidence of prior aneurysm repair in the infrarenal abdominal aorta. 6. Aneurysmal upper abdominal aorta measuring 5.1 x 4.4 CM. -History of smoking -History of combined systolic diastolic heart failure, last echo showed EF of 25% -No history of obstructive CAD as per my knowledge, no history of cardiac cath, no history of CABG -Recent hospitalization at [facility], hospitalization for pneumonia, has risk factors for healthcare associate pneumonia -White blood cell count 7.6, hemoglobin 10.3 -BMP over 70,000, 6-hour troponin 322.3, delta 7.3 -ABG shows on pH 7.36, PCO2 45.3, PO2 82.4 on 15 L PLAN: -Patient is DNR/DNI, confirmed with nurse at bedside -Heparin for DVT prophylaxis -Solu-Medrol 40 IV every 8 hours -DuoNeb treatment -Bumex 2 mg IV every 12 hours, metolazone as needed, creatinine 2.8, urine output is lackluster suspect related to cardiorenal syndrome and CKD -Broad-spectrum antibiotics vancomycin, Zosyn and azithromycin -Sputum cultures, blood cultures, urine bacterial antigens, urine cultures -Daily I's and O's, monitor urine output, -Monitor creatinine as received contrast, creatinine 2.8 -Monitor respiratory status closely -BiPAP during the day, will try to wean to high flow -Speech therapy has seen the patient, mechanical soft diet -Echocardiogram has been ordered -Given elevated troponins, CHF, cardiology has been consulted Status: Acute (2) Chronic kidney disease (CKD): -Failed left arm AV fistula, not accessible -Baseline creatinine not known, currently 2.7, it was high as 3 at [facility] -Has components of cardiorenal syndrome -Diuresis as above Status: Acute (3) CVA (cerebral vascular accident): -Left-sided weakness -Chronic dysphagia -On [facility] admission, refused modified barium swallow -Was on nectar thickened, transition to thin liquids, then to soft mechanical, then became shortness of breath -soft mechanical diet Status: Acute (4) Dialysis AV fistula malfunction: Status: Acute (5) COPD (chronic obstructive pulmonary disease): Status: Acute (6) Aspiration pneumonia: Status: Acute (7) Acute hyperkalemia: -Status post insulin, D50, calcium gluconate Status: Acute (8) Anemia: -Acute on chronic anemia -Currently 9.0 monitor Status: Acute (9) Combined systolic and diastolic heart failure: -Last EF was 25% -I do not know if he has had a coronary angiogram, not in the records, patient denies any coronary angiogram Status: Acute (10) NSTEMI (non-ST elevated myocardial infarction): -6-hour troponin 322.3, delta 7.3 -BNP over 70,000, creatinine 2.8 -EKG shows ST depressions in anterior leads, -Aspirin, statin -Have consulted cardiology Status: Acute (11) Anemia: -Hemoglobin down to 7.3 -No overt signs of bleeding, no blood or black stools -Transfuse 2 units PRBC -Protonix 40 IV twice daily - hold Lovenox -On aspirin Status: Acute Attestations Medical Necessity Statement*: Patient requires hospitalization for acute respiratory failure Coding Level of Care Code Acute Heel Padder for [facility] Diagnoses Acute respiratory failure with hypoxia J96.01 Chronic kidney disease (CKD) N18.9 CVA (cerebral vascular accident) I63.9 Dialysis AV fistula malfunction T82.590A COPD (chronic obstructive pulmonary disease) J44.9 Aspiration pneumonia J69.0 Acute hyperkalemia E87.5 Anemia D64.9 Combined systolic and diastolic heart failure I50.40 NSTEMI (non-ST elevated myocardial infarction) I21.4 Anemia D64.9
--- NOTE | 2020-02-01 15:27 | US_ITS ---
WS: [id number] ULTRASOUND RENAL TECHNIQUE: Ultrasound examination of both kidneys. CLINICAL INFORMATION: frantz COMPARISON: None. FINDINGS: RIGHT: Right kidney is normal in size and appearance. Echogenicity: Normal. Cortical thickness: 1.1 cm; Normal. Hydronephrosis: None. Perinephric fluid: None. Right kidney measures: 8.6 cm x 4.7 cm x 3.9 cm. LEFT: Left kidney is normal in size and appearance. Echogenicity: Normal. Cortical thickness: 1.0 cm; Normal. Hydronephrosis: None. Perinephric fluid: None. Left kidney measures: 8.5 cm x 4.1 cm x 3.5 cm. Normal visualized aorta. Hoover catheter. Small right pleural effusion. US/US renal BI* [id number] IMPRESSION: 1. Mild bilateral renal atrophy. No hydronephrosis. 2. Hoover catheter
[2020-02-01] MEDS: metOLazone 5 MG Tablet PO (17:40)
--- NOTE | 2020-02-01 18:23 | USCV_ITS ---
James Bell Age: 59 Gender: M : 1960 Exam Date: 02/01/2020 09:26 Ordering Phys: Erwin Phillips MD Technologist: Flo Lofton Exam Location: [facility] [place] Indication: SOB BP: 95 / 51 HR: 47 Rhythm: Sinus Technical Quality: Adequate MEASUREMENTS (Male / Female) Normal Values 2D ECHO LV Diastolic Diameter PLAX 5.4 cm 4.2 - 5.9 / 3.9 - 5.3 cm LV Systolic Diameter PLAX 4.0 cm IVS Diastolic Thickness 1.5 cm 0.6 - 1.0 / 0.6 - 0.9 cm IVS Systolic Thickness 1.8 cm LVPW Diastolic Thickness 1.5 cm 0.6 - 1.0 / 0.6 - 0.9 cm LVPW Systolic Thickness 1.5 cm LVOT Diameter 2.1 cm LV Ejection Fraction 2D Teich 49.7 % LV Ejection Fraction MOD 2C 41.4 % LV Ejection Fraction 2C AL 39.9 % LA Diameter 4.7 cm LA Width 5.2 cm LA Height 6.7 cm RA Width 4.0 cm RA Height 5.5 cm Aorta at Sinotubular Diameter 2.8 cm M-MODE LV Diastolic Diameter MM 7.0 cm 4.2 - 5.9 / 3.9 - 5.3 cm LV Systolic Diameter MM 5.1 cm LV Ejection Fraction MM Teich 50.0 % IVS Diastolic Thickness MM 1.2 cm 0.6 - 1.0 / 0.6 - 0.9 cm IVS Systolic Thickness MM 1.5 cm LVPW Diastolic Thickness MM 1.6 cm 0.6 - 1.0 / 0.6 - 0.9 cm LVPW Systolic Thickness MM 1.9 cm RV Diastolic Diameter MM 1.3 cm Aortic Annulus Diameter 4.0 cm LA Ao Ratio MM 1.3 MV E Point Septal Separation 1.9 cm DOPPLER AV Peak Velocity 120.0 cm/s LVOT Peak Velocity 77.0 cm/s AV Area Cont Eq vti 2.2 cm squared AV Area Cont Eq pk 2.2 cm squared MV Area PHT 5.0 cm squared Mitral E to A Ratio 3.1 MV E' Velocity 73.0 cm/s Mitral E to MV E' Ratio 15.8 Mitral E to LV E' Lateral Ratio 13.6 Mitral E to LV E' Septal Ratio 18.9 TR Peak Velocity 306.3 cm/s TR Peak Gradient 37.5 mmHg Right Atrial Pressure 15.0 mmHg Pulmonary Artery Systolic Pressu 52.5 mmHg PV Peak Velocity 104.0 cm/s FINDINGS Left Ventricle Left ventricle is dilated. LV systolic function is severely reduced with EF of 25-30 %. Severe global hypokinesis is present. Normal left ventricular wall thickness. Grade 3 diastolic dysfunction is noted. Right Ventricle The right ventricle is normal in size and function. Right Atrium The right atrium is enlarged. Left Atrium The left atrium is early dilated. Mitral Valve Structurally normal mitral valve without significant stenosis or prolapse. There is moderate to severe mitral regurgitation. Aortic Valve Structurally normal aortic valve without significant sclerosis or stenosis. There is no aortic regurgitation. Tricuspid Valve Structurally normal tricuspid valve. Moderate tricuspid regurgitation is noted. RVSP is 50 to 55 mmHg. Moderate pulmonary hypertension is present. Pulmonic Valve Structurally normal pulmonic valve without significant stenosis. There is mild pulmonic regurgitation. Pericardium Trace pericardial effusion. Aorta Normal ascending aorta dimension. CONCLUSIONS Left ventricle is dilated. LV systolic function is severely reduced with EF of 25 to 30%. Severe global hypokinesis is present. Grade 3 diastolic dysfunction is noted. Severe biatrial enlargement is present. Moderate to severe mitral regurgitation and moderate tricuspid regurgitation is present. Moderate pulmonary hypertension is noted. Elevated right atrial pressure. No comparison studies are available. Salomon Butterfield MD (Electronically Signed) Final Date: 01 February 2020 15:12 S
[2020-02-01] MEDS: sodium chloride 0.9% (100 ml) 100 ML 125 ML (18:29)
[2020-02-01] MEDS: bumetanide 0.25 mg/mL SDV 4 mL 2 MG IV (18:30)
[2020-02-01] MEDS: azithromycin 500 MG in sodium chloride 0.9% 250 ML 250 MG IV (20:02)
[2020-02-01] MEDS: gabapentin 100 mg Capsule PO (20:03)
[2020-02-01 20:07] LABS: Potassium, Radom Urine 49 mmol/L; Urine Creatinine 80 mg/dL (39-259); Urine Random Chloride 22 mmol/L
[2020-02-01 20:09] LABS: Urine Random Sodium 14 mmol/L
[2020-02-01 20:14] LABS: Urea Nitrogen,Urine Random 436 mg/dL
[2020-02-01 20:22] LABS: Eosinophil Urine No Eosinophils Seen; Urine Eosinophil Count 0 (0-0)
[2020-02-01] MEDS: TRAMadol 50 mg Tablet PO (21:10)
--- NOTE | 2020-02-01 22:01 | PM.CONSULT ---
Providers/Reason For Consult Consulting Physican/Specialty*: Salomon Butterfield MD/cardiology Reason for Consult*: Congestive heart failure Requesting Physcian: Erwin Phillips MD Attending Physician: Erwin Phillips MD Primary Care Provider: Wayne Ben History of Present Illness History of Present Illness 59 year old male with a past medical history of systolic and diastolic heart failure, ejection fraction of 25%, cardiorenal syndrome history of AAA repair, CKD stage IV, left arm failed fistul, a history of CVA with chronic dysphagia and left-sided weakness, hypertension, hyperlipidemia, GERD, COPD, chronic smoker, who presented to [facility] due to shortness of breath. He reports shortness of breath at rest and with exertion, no fevers, chills, has a chronic cough, no known exposure to COVID-19, has a history of heart failure, is on Bumex, tells me he urinates a lot, has a history of CKD with a left arm failed fistula, is not on dialysis yet, not currently smoking, no nausea, no vomiting, no hemoptysis, no bilateral calf swelling. Patient was recently admitted at [facility] for CHF exacerbation.Patient was currently at senior living and there is possible aspiration event too. Cardiology was consulted as patient to manage CHF. ECHO performed today reveals severely reduced LV systolic function with EF of 25-30%. His NT Pro BNP is >80622 and creatinine is 2.8. Troponin was elevated at 315 without significant delta. Review of Systems Const: Denies: fever(s), chills, fatigue or malaise Eyes: Denies: change in vision or blurry vision ENMT: Denies: nasal congestion Card: Denies: chest pain or palpitations Resp: Reports: dyspnea and non-productive cough; Denies: productive cough or wheezing GI: Denies: abdominal pain, nausea, vomiting, hematemesis, diarrhea, constipation, hematochezia or melena : Denies: flank pain, difficulty urinating, dysuria or urinary frequency Musc: Denies: neck pain or back pain Skin/Breast: Denies: rash Neuro: Denies: headache(s), dizziness or vertigo Psych: Denies: anxiety or depression Endo: Denies: polyuria or polydipsia Meds/Allergies Home Medications and Allergies Home Medications Medication Instructions Recorded Confirmed Last Taken Type albuterol sulfate [ProAir HFA] 2 puff INHALATION Q6H PRN 01/31/20 01/31/20 Unknown History atenolol 100 mg PO DAILY 01/31/20 01/31/20 01/30/20 History clonidine HCl 0.3 mg PO TID 01/31/20 01/31/20 01/30/20 History doxazosin 2 mg PO BID 01/31/20 01/31/20 01/30/20 History gabapentin 100 mg PO BEDTIME 01/31/20 01/31/20 01/30/20 History potassium chloride 20 meq PO DAILY 01/31/20 01/31/20 01/30/20 History valproic acid 250 mg PO DAILY 01/31/20 01/31/20 01/30/20 History Allergies Allergy/AdvReac Type Severity Reaction Status Date / Time clopidogrel [From Plavix] Allergy Unknown Verified 01/31/20 08:43 hydralazine Allergy Unknown Verified 01/31/20 08:43 hydrochlorothiazide Allergy Unknown Verified 01/31/20 08:43 lisinopril Allergy Unknown Verified 01/31/20 08:43 Current Medications Current Medications Generic Name Dose Route Start Last Admin Trade Name Freq PRN Reason Stop Dose Admin Albuterol/Ipratropium 3 ml 01/31/20 18:23 02/01/20 21:50 Ipratropium-Albuterol 3 Ml Neb INHALATION 3 ml Q4H.RESPIRATORY MINDY Administration Amlodipine Besylate 10 mg 02/01/20 09:00 02/01/20 09:02 Amlodipine 10 Mg Tablet PO 10 mg DAILY MINDY Administration Aspirin 81 mg 02/01/20 10:35 02/01/20 11:16 Aspirin 81 Mg Ec Tablet PO 81 mg DAILY MINDY Administration Bumetanide 2 mg 02/01/20 18:00 02/01/20 18:30 Bumetanide 0.25 Mg/Ml Sdv 4 Ml IV 2 mg Q12H MINDY Administration Carvedilol 6.25 mg 01/31/20 18:23 02/01/20 17:31 Carvedilol 6.25 Mg Tablet PO 6.25 mg BID MINDY Administration Clonidine HCl 0.1 mg 02/01/20 13:30 02/01/20 17:31 Clonidine 0.1 Mg Tablet PO 0.1 mg BID MINDY Administration Doxazosin Mesylate 4 mg 01/31/20 20:00 12/02/20 20:40 Doxazosin 4 Mg Tablet PO 4 mg Q12H MINDY Administration Enoxaparin Sodium 40 mg 01/31/20 20:00 01/31/20 20:28 Enoxaparin 40 Mg/0.4 Ml Syringe SUBCUT 40 mg Q24H MINDY Administration Gabapentin 100 mg 01/31/20 21:00 02/01/20 20:03 Gabapentin 100 Mg Capsule PO 100 mg BEDTIME MINDY Administration Piperacillin Sod/Tazobactam 50 mls @ 12.5 mls/hr 02/01/20 01:00 02/01/20 17:32 Sod 3.375 gm/ Sodium Chloride IV 12.5 mls/hr Q8H MINDY Administration Protocol Azithromycin 500 mg/ Sodium 250 mls @ 250 mls/hr 01/31/20 20:00 02/01/20 20:02 Chloride IV 250 mls/hr Q24H MINDY Administration Protocol Methylprednisolone Sodium Succinate 40 mg 01/31/20 18:23 02/01/20 17:32 Methylprednisolone Sod Succ 40 Mg/Ml Inj IVP 40 mg Q8H MINDY Administration Pantoprazole Sodium 40 mg 02/01/20 08:00 02/01/20 20:03 Pantoprazole 40 Mg Sdv IVP 40 mg Q12H MINDY Administration Sucralfate 1 gm 02/01/20 11:00 02/01/20 20:03 Sucralfate 1 Gm Tablet PO 1 gm AC&BEDTIME MINDY Administration Tramadol HCl 50 mg 01/31/20 18:23 02/01/20 21:10 Tramadol 50 Mg Tablet PO 50 mg Q8H PRN Administration MODERATE PAIN Valproic Acid 250 mg 02/01/20 09:00 02/01/20 09:02 Valproic Acid 250 Mg Capsule PO 250 mg DAILY MINDY Administration PFSH Acute PFSH: Medical History Combined systolic and diastolic heart failure COPD (chronic obstructive pulmonary disease) CVA (cerebral vascular accident) Dialysis AV fistula malfunction Dysphagia Surgical History History of AAA (abdominal aortic aneurysm) repair Family History Father AAA (abdominal aortic aneurysm, ruptured) Social History Smoking and tobacco status: former smoker Alcohol intake: former Substance/Drug Use: never Vitals/I&O/Wt Last Vital Signs Temp 98.2 F 02/01/20 20:23 Pulse 92 02/01/20 21:50 Resp 18 02/01/20 21:50 BP 143/110 02/01/20 21:00 Pulse Ox 92 02/01/20 21:50 02/01/20 02/01/20 02/01/20 06:59 14:59 22:59 Intake Total 50 / 1450 880 / 880 240 / 1120 Output Total 350 / 725 325 / 325 260 / 585 Balance -300 / 725 555 / 555 -20 / 535 Weight last 48 hrs Weight 136 lb 7 oz Weight 133 lb 1 oz Weight 126 lb 12.8 oz Physical Exam Narrative: EXAM NARRATIVE: Const COMMON NORMALS: no acute distress and patient oriented x3 HENMT COMMON NORMALS: normocephalic HEAD & SCALP: normocephalic Neck/C-Spine COMMON NORMALS: no JVD Resp COMMON NORMALS: normal respiratory effort and No retractions AUSCULTATION: wheezes and diminished lung sounds bilateral in the lower lung eb and diffuse Cardio COMMON NORMALS: no JVD, regular rate, regular rhythm, S1 normal heart sound present and S2 normal heart sound present RATE: regular rate RHYTHM: regular rhythm HEART SOUNDS: S1 normal heart sound present and S2 normal heart sound present GI COMMON NORMALS: Normal to inspection, nondistended, normoactive bowel sounds present, Soft to palpation, non-tender, No hepatosplenomegaly present, no masses and no bruits PALPATION: Yes Soft to palpation and Yes No hepatosplenomegaly present Extremity COMMON NORMALS: capillary refill normal, no clubbing, cyanosis or edema, no calf tenderness and no pedal edema Neuro COMMON NORMALS: patient oriented x3 Psych COMMON NORMALS: mental status grossly normal Urinary Catheter Management^: Coude: Cath Placed During This Visit: yes Reason for Continuing Indwelling Catheter: Accurate Measurement of Urinary Output in Critically Ill Patients Urinary Catheter Date of Insertion: 02/01/20 Urinary Catheter Time of Insertion: 02:00 Data Micro: Micro: Microbiology 01/31/20 22:53 MRSA Culture - Fin al Nose 01/31/20 10:53 Blood Culture - Pr eliminary Blood NEGATIVE TO WILLARD E 01/31/20 10:49 Blood Culture - Pr eliminary Blood NEGATIVE TO WILLARD E 02/01/20 00:10 Bacterial Antigens - Final Urine,Clean Catch A&P Assessment and plan (1) Combined systolic and diastolic heart failure: Status: Acute (2) Acute respiratory failure with hypoxia: Status: Acute (3) COPD (chronic obstructive pulmonary disease): Status: Acute (4) CVA (cerebral vascular accident): Status: Acute (5) Troponin level elevated: Status: Acute Patient has been transferred from senior living and has complex medical history with known CHF and CKD with prior plans for dialysis and a failed fistula. He is DNR/DNI. Per history he was producing good urine output recently. Has presented with acute respiratory failure. Apparently etiology for CHF has not been determined. He possibly has underlying pneumonia however CXR and echo consistent with volume overload. This could be from CHF exacerbation or worsening of his underlying kidney disease as he is not making much urine now. We will recommend uptitrating Bumex to 2 mg TID. Add Metolazone. Close monitoring of I and Os and renal function. He might be headed towards dialysis again. Troponin did not trend up. High in setting of CKD and CHF. Treat possible pneumonia with empiric antibiotics. Had likely aspiration event at senior living Blood pressure control. We have uptitrated his antihypertensive regimen. Thank you for involving us with the care of this patient. 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
[2020-02-01] MEDS: vancomycin 1,000 MG in sodium chloride 0.9% 250 ML 250 MG IV (23:47)
[2020-02-01] MEDS: bumetanide 0.25 mg/mL SDV 10 mL 2 MG IV (23:47)
[2020-02-02] VITALS (55 sets, daily range): BP systolic 119–178; BP diastolic 54–103; PULSE 74–99; RESP 6–23; TEMP 36.7–37.1; O2SAT 88–100
[2020-02-02] MEDS: ipratropium-albuterol 3 mL Neb INHALATION ×6 (00:16→21:11)
[2020-02-02] MEDS: piperacillin-tazobactam 3.375 GM in sodium chloride 0.9% (plus) 50 ML IV ×3 (01:33→17:04)
[2020-02-02 04:18] LABS: INR 1.08 (0.8-1.2)
[2020-02-02 04:21] LABS: Alanine Aminotransferase 7 U/L (0-41); Albumin Level 3.4 g/dL (3.5-5.2); Alkaline Phosphatase 106 IU/L (40-130); Anion Gap 17.3 (5-19); Aspartate Amino Transferase 10 U/L (0-40); Blood Urea Nitrogen 54 mg/dL (6-20); C Reactive Protein 44.1 mg/L (0.0-4.9); Calcium 8.7 mg/dL (8.5-10.5); Carbon Dioxide 24 mmol/L (22-29); Chloride 94 mmol/L (98-107); D Dimer 2.88 ug/mIFEU (0-0.59); Globulin 2.5 g/dL (1.3-4.6); Glomerular Filtration Rate 20.7 mL/min (90-130); Glucose 210 mg/dL (65-115); Magnesium 2.2 mg/dL (1.7-2.3); Osmolality Calculated 293 mOsm/kg (285-295); Phosphorus 3.9 mg/dL (2.5-4.5); Potassium 4.3 mmol/L (3.5-5.1); Sodium 131 mmol/L (136-145); Total Bilirubin 1.2 mg/dL (0.15-1.2); Total Protein 5.9 g/dL (6.6-8.7)
[2020-02-02 04:24] LABS: Procalcitonin 0.38 ng/mL (0-0.5)
[2020-02-02 04:37] LABS: Creatine Phosphokinase 26 U/L (39-308)
[2020-02-02 04:55] LABS: NT Pro B Type Natriuretic Pept > 70000 pg/mL (0-125)
[2020-02-02 05:28] LABS: Basophils % 0.1 %; Hematocrit 27.9 % (42.0-52.0); Hemoglobin 9.1 g/dL (11.7-16.6); Lymphocytes # 0.3 10^3/uL (0.8-4.8); Lymphocytes % 4.4 %; Mean Corpuscular Hemoglobin 28.4 pg (28.0-34.0); Mean Platelet Volume 10.5 fL (7.4-10.4); Monocytes # 0.3 10^3/uL (0.2-0.9); Monocytes % 3.4 %; Neutrophils % 91.6 %; Nucleated Red Blood Cells % 0 %; Platelet Count 143 10^3/cmm (130-400); Red Cell Distribution Width 15.6 % (12.1-15.1)
[2020-02-02 05:45] LABS: Mean Corpuscular HGB Conc 32.6 g/dL (30.0-36.0); Mean Corpuscular Volume 87.2 fL (80-94); White Blood Count 7.7 10^3/uL (4.0-10.0)
--- NOTE | 2020-02-02 06:00 | ECG_ITS ---
[facility] Test Date: 2020-02-02 Pat Name: James Bell Department: Room: ICU10 Gender: Male Bow Tacker: BETO : 1960 Requested By: Erwin Phillips Order Number: [id number] Neha MD: Salomon Butterfield M.D. Measurements Intervals [place] Rate: 82 P: 86 ME: 184 QRS: 22 QRSD: 101 T: 180 QT: 399 QTc: 466 Interpretive Statements SINUS RHYTHM POSSIBLE LEFT ATRIAL ENLARGEMENT [-0.1mV P WAVE IN V1/V2] LEFT VENTRICULAR HYPERTROPHY AND ST-T CHANGE [VOLTAGE CRITERIA PLUS ST/T ABNORMALITY] Compared to ECG 02/01/2020 06:16:48 Right-axis deviation no longer present ST (T wave) deviation still present Electronically Signed On 02-02-2020 17:37:43 SILK SCREEN PRINTER MACHINE by Salomon Butterfield M.D. [email or web address] ([email or web address]) [email or web address] va medical centerAquest [id number]
--- NOTE | 2020-02-02 07:00 | XR_ITS ---
WS: [id number] Portable AP semiupright chest, 02/02/2020 Clinical Data: sob Comparison: Portable chest, 02/01/2020 Findings: Bilateral lung opacities remain same. There is more opacity on the right than the left. The heart size is slightly enlarged. Again there are bilateral pleural effusions unchanged. Monitor lead s are on the chest wall. XR/XR chest 1V portable [id number] Impression: No change from yesterday's portable chest.
--- NOTE | 2020-02-02 09:51 | PC.RESP ---
PULMONARY REHAB INFORMATION SENT TO PATIENT
[2020-02-02] MEDS: pantoprazole 40 mg SDV IVP ×2 (09:57→19:59)
[2020-02-02] MEDS: bumetanide 0.25 mg/mL SDV 10 mL 2 MG IV ×2 (09:58→17:05)
[2020-02-02] MEDS: carvedilol 6.25 mg Tablet PO ×2 (09:58→17:05)
[2020-02-02] MEDS: doxazosin 4 mg Tablet PO ×2 (09:58→20:28)
[2020-02-02] MEDS: aspirin 81 mg EC Tablet PO (09:58)
[2020-02-02] MEDS: cloNIDine 0.1 mg Tablet PO ×2 (09:58→17:04)
[2020-02-02] MEDS: metOLazone 5 MG Tablet PO (09:59)
[2020-02-02] MEDS: amlodipine 10 mg Tablet PO (09:59)
[2020-02-02] MEDS: sucralfate 1 gm Tablet PO ×3 (11:39→19:59)
--- NOTE | 2020-02-02 12:50 | P.CONIM_ITS ---
Providers/Reason For Consult Consulting Physican/Specialty*: Nephrology Reason for Consult*: Eval for DEISI on CKD Attending Physician: Erwin Phillips MD Primary Care Provider: Wayne Contreras History of Present Illness History of Present Illness Thank you for consultation. Today I reviewed this pleasant 59-year-old gentleman for evaluation of acute on chronic kidney disease. He has a history of known CHF and chronic kidney disease, having followed with nephrology previously, and is now presenting with symptoms of increasing shortness of breath at rest, desaturating down to the 50s, requiring supplemental oxygen. Following hospitalization he is received combination therapy including broad- spectrum antibiotics to cover for possible pneumonia as well as an up titration of his diuretics to include Bumex and the addition of metolazone. He feels symptomatically better when I interviewed him today compared to yesterday, is now breathing comfortably on nasal cannula maintaining his oxygen levels. From a nephrology perspective, he has previously followed with Dr. Bullard out of [facility], previously had a fistula placed in 2017, this is now failed. He is never required hemodialysis. Creatinine is 3.1 today, yesterday 2.8, on the first it was 2.7. He reports good urinary volumes I see that he made a total of 2 L yesterday in response to diuretics. He denies bladder outflow obstructive symptoms. Renal sonogram performed yesterday demonstrates mild bilateral renal atrophy but no evidence of hydronephrosis. Hoover catheter is currently in place. We do not have a baseline renal function for him however is believed he has significant chronic kidney disease. He denies extremity edema. He denies any additional uremic symptoms He does have an established history of severely reduced left ventricular systolic function with ejection fraction 25-30%. Hemodynamics following hospitalization have been robust, in fact blood pressure this morning 171/86. Review of Systems Narrative: ROS - 12 point review of systems completed per HPI and subjective assessment, this includes Constitutional: Weakness, fatigue Respiratory: No SOB on exertion, comfortable at rest CardioVasc: No chest pain, palpitations Gastrointestinal: No nausea, no vomiting Neurological: No seizures, no AMS Derm: No new rashes, lesions or wounds Immunological: No seasonal and no food allergies Meds/Allergies Home Medications and Allergies Home Medications Medication Instructions Recorded Confirmed Last Taken Type albuterol sulfate [ProAir HFA] 2 puff INHALATION Q6H PRN 01/31/20 01/31/20 Unknown History atenolol 100 mg PO DAILY 01/31/20 01/31/20 01/30/20 History clonidine HCl 0.3 mg PO TID 01/31/20 01/31/20 01/30/20 History doxazosin 2 mg PO BID 01/31/20 01/31/20 01/30/20 History gabapentin 100 mg PO BEDTIME 01/31/20 01/31/20 01/30/20 History potassium chloride 20 meq PO DAILY 01/31/20 01/31/20 01/30/20 History valproic acid 250 mg PO DAILY 01/31/20 01/31/20 01/30/20 History Allergies Allergy/AdvReac Type Severity Reaction Status Date / Time clopidogrel [From Plavix] Allergy Unknown Verified 01/31/20 08:43 hydralazine Allergy Unknown Verified 01/31/20 08:43 hydrochlorothiazide Allergy Unknown Verified 01/31/20 08:43 lisinopril Allergy Unknown Verified 01/31/20 08:43 Current Medications Current Medications Generic Name Dose Route Start Last Admin Trade Name Freq PRN Reason Stop Dose Admin Albuterol/Ipratropium 3 ml 01/31/20 18:23 02/02/20 11:02 Ipratropium-Albuterol 3 Ml Neb INHALATION 3 ml Q4H.RESPIRATORY MINDY Administration Amlodipine Besylate 10 mg 02/01/20 09:00 02/02/20 09:59 Amlodipine 10 Mg Tablet PO 10 mg DAILY MINDY Administration Aspirin 81 mg 02/01/20 10:35 02/02/20 09:58 Aspirin 81 Mg Ec Tablet PO 81 mg DAILY IMNDY Administration Bumetanide 2 mg 02/02/20 07:30 02/02/20 09:58 Bumetanide 0.25 Mg/Ml Sdv 10 Ml IV 2 mg Q12H MINDY Administration Carvedilol 6.25 mg 01/31/20 18:23 02/02/20 09:58 Carvedilol 6.25 Mg Tablet PO 6.25 mg BID MINDY Administration Clonidine HCl 0.1 mg 02/01/20 13:30 02/02/20 09:58 Clonidine 0.1 Mg Tablet PO 0.1 mg BID MINDY Administration Doxazosin Mesylate 4 mg 01/31/20 20:00 12/03/20 09:58 Doxazosin 4 Mg Tablet PO 4 mg Q12H MINDY Administration Enoxaparin Sodium 40 mg 01/31/20 20:00 01/31/20 20:28 Enoxaparin 40 Mg/0.4 Ml Syringe SUBCUT 40 mg Q24H MINDY Administration Gabapentin 100 mg 01/31/20 21:00 02/01/20 20:03 Gabapentin 100 Mg Capsule PO 100 mg BEDTIME MINDY Administration Piperacillin Sod/Tazobactam 50 mls @ 12.5 mls/hr 02/01/20 01:00 02/02/20 09:57 Sod 3.375 gm/ Sodium Chloride IV 12.5 mls/hr Q8H MINDY Administration Protocol Azithromycin 500 mg/ Sodium 250 mls @ 250 mls/hr 01/31/20 20:00 02/01/20 23:51 Chloride IV Infused Q24H MINDY Infusion Protocol Vancomycin HCl 1,000 mg/ 250 mls @ 250 mls/hr 02/01/20 23:00 02/02/20 00:47 Sodium Chloride IV Infused Q24H MINDY Infusion Methylprednisolone Sodium Succinate 40 mg 01/31/20 18:23 02/02/20 09:57 Methylprednisolone Sod Succ 40 Mg/Ml Inj IVP 40 mg Q8H MIDNY Administration Metolazone 5 mg 02/02/20 09:00 02/02/20 09:59 Metolazone 5 Mg Tablet PO 5 mg DAILY MINDY Administration Pantoprazole Sodium 40 mg 02/01/20 08:00 02/02/20 09:57 Pantoprazole 40 Mg Sdv IVP 40 mg Q12H MINDY Administration Sucralfate 1 gm 02/01/20 11:00 02/02/20 11:46 Sucralfate 1 Gm Tablet PO Not Given AC&BEDTIME MINDY Tramadol HCl 50 mg 01/31/20 18:23 02/01/20 21:10 Tramadol 50 Mg Tablet PO 50 mg Q8H PRN Administration MODERATE PAIN Valproic Acid 250 mg 02/01/20 09:00 02/02/20 09:58 Valproic Acid 250 Mg Capsule PO 250 mg DAILY MINDY Administration PFSH Acute PFSH: Medical History Combined systolic and diastolic heart failure COPD (chronic obstructive pulmonary disease) CVA (cerebral vascular accident) Dialysis AV fistula malfunction Dysphagia Surgical History History of AAA (abdominal aortic aneurysm) repair Family History Father AAA (abdominal aortic aneurysm, ruptured) Social History Smoking and tobacco status: former smoker Alcohol intake: former Substance/Drug Use: never Vitals/I&O/Wt Last Vital Signs Temp 98.6 F 02/02/20 10:30 Pulse 81 02/02/20 11:03 Resp 19 H 02/02/20 11:03 BP 171/86 02/02/20 10:30 Pulse Ox 96 02/02/20 11:03 02/01/20 02/02/20 02/02/20 22:59 06:59 14:59 Intake Total 490 / 1470 500 / 1970 350 / 350 Output Total 260 / 585 1100 / 1685 650 / 650 Balance 230 / 885 -600 / 285 -300 / -300 Weight last 48 hrs Weight 63.807 kg Weight 61.887 kg Weight 60.356 kg Physical Exam Narrative: EXAM NARRATIVE: Constitutional: Awake, conversant, jovial HEENT: Wet mucosa, no jvp, non icteric Lungs: Bilaterally clear without discernible wheeze, rales in all lung zones CVS: S1 S2, no murmurs Abdo: Soft, BS ok Ext 4: Minimal edema, peripheral perfusion with no cyanosis Neurological: Grossly non-focal Urinary Catheter Management^: Coude: Cath Placed During This Visit: yes Reason for Continuing Indwelling Catheter: Accurate Measurement of Urinary Output in Critically Ill Patients Urinary Catheter Date of Insertion: 02/01/20 Urinary Catheter Time of Insertion: 02:00 Data Micro: Micro: Microbiology 01/31/20 22:53 MRSA Culture - Fin al Nose 01/31/20 10:53 Blood Culture - Pr eliminary Blood NEGATIVE TO WILLARD E 01/31/20 10:49 Blood Culture - Pr eliminary Blood NEGATIVE TO WILLARD E A&P Additional A&P Information 1. Acute kidney injury on CKD. Baseline renal function unknown. Suspect chronic kidney disease however also suspect an element of acute kidney dysfunction, likely secondary to cardiorenal syndrome This is characterized by low urinary sodium of 14 indicative of renal hypoperfusion as would be seen in cardiorenal syndrome. Currently on combination diuretics including Bumex and metolazone, will monitor his response to these drugs closely, so far his urine output has been adequate and I am hopeful that he will not require hemodialysis however this is a risk within the next 24-48 hours. Renal sonogram, basic urine chemistry is completed Avoid usual nephrotoxic agents Dose medications for GFR less than 30 2. Shortness of breath. Being treated both for potential pneumonia including broad-spectrum antibiotics including Zosyn, vancomycin and as well as combination diuretics for heart failure. Shortness of breath seems to be improving. 3. Hemodynamics. Although he has significant heart disease, I do see his blood pressure is elevated. He is currently on a combination of antihypertensives. We will continue to monitor hemodynamics during his hospital stay. 4. Chemistry. Mild aberration of serum chemistry including hyponatremia. Noncritical, continue to follow closely. 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
--- NOTE | 2020-02-02 14:19 | PM.PN ---
Subjective Subjective: Interval history: This morning patient was examined, he sitting up into a chair, is on 10 L, his urine output is a bit lackluster at 1650 cc, tells me he is doing better he feels, denies any fevers, denies any chills, denies any nausea, denies any vomiting, no chest pain Vitals/I&O/Wt Last Vital Signs Temp 98.6 F 02/02/20 10:30 Pulse 81 02/02/20 11:03 Resp 19 H 02/02/20 11:03 BP 171/86 02/02/20 10:30 Pulse Ox 96 02/02/20 11:03 02/01/20 02/02/20 02/02/20 22:59 06:59 14:59 Intake Total 490 / 1470 500 / 1970 400 / 400 Output Total 260 / 585 1100 / 1685 650 / 650 Balance 230 / 885 -600 / 285 -250 / -250 Weight last 48 hrs Weight 63.807 kg Weight 61.887 kg Weight 60.356 kg Physical Exam Const: COMMON NORMALS: no acute distress and patient oriented x3 HENMT: COMMON NORMALS: normocephalic HEAD & SCALP: normocephalic Neck/C-Spine: COMMON NORMALS: no JVD Resp: COMMON NORMALS: normal respiratory effort, No retractions and No use of accessory muscles AUSCULTATION: crackles and diminished lung sounds bilateral in the lower lung be Cardio: COMMON NORMALS: no JVD, regular rate, regular rhythm, S1 normal heart sound present and S2 normal heart sound present RATE: regular rate RHYTHM: regular rhythm HEART SOUNDS: S1 normal heart sound present and S2 normal heart sound present GI: COMMON NORMALS: Normal to inspection, nondistended, normoactive bowel sounds present, Soft to palpation, non-tender, No hepatosplenomegaly present, no masses and no bruits PALPATION: Yes Soft to palpation and Yes No hepatosplenomegaly present Extremity: COMMON NORMALS: capillary refill normal, no clubbing, cyanosis or edema, no calf tenderness and no pedal edema Neuro: COMMON NORMALS: patient oriented x3 Psych: COMMON NORMALS: mental status grossly normal Skin: NARRATIVE SKIN EXAM: Left arm AV fistula Urinary Catheter Management^: Coude: Cath Placed During This Visit: yes Reason for Continuing Indwelling Catheter: Accurate Measurement of Urinary Output in Critically Ill Patients Urinary Catheter Date of Insertion: 02/01/20 Urinary Catheter Time of Insertion: 02:00 Data : 02/02/20 03:30 02/02/20 03:30 Micro: Microbiology 01/31/20 22:53 MRSA Culture - Final Nose 01/31/20 10:53 Blood Culture - Preliminary Blood NEGATIVE TO DATE 01/31/20 10:49 Blood Culture - Preliminary Blood NEGATIVE TO DATE A&P Assessment and plan (1) Acute respiratory failure with hypoxia: -Secondary to aspiration pneumonia, pulmonary edema, acute combined systolic or diastolic heart failure, COPD exacerbation -Influenza pending, rapid Covid negative CTA 1. No evidence of pulmonary embolus. 2. Small right greater than left pleural effusions with compressive atelectasis in the lung bases. Subtotal subsegmental consolidative atelectasis in the left lower lobe. 3. A few hazy groundglass infiltrates in the right upper lobe and right middle lobe. 4. Reactive anterior mediastinal and peribronchial lymph nodes. 5. 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 Evidence of prior aneurysm repair in the infrarenal abdominal aorta. 6. Aneurysmal upper abdominal aorta measuring 5.1 x 4.4 CM. -History of smoking -History of combined systolic diastolic heart failure, last echo showed EF of 25% -No history of obstructive CAD as per my knowledge, no history of cardiac cath, no history of CABG -Recent hospitalization at [facility], hospitalization for pneumonia, has risk factors for healthcare associate pneumonia -White blood cell count 7.7, hemoglobin 9.1 -BMP over 70,000, 6-hour troponin 322.3, delta 7.3 -ABG shows on pH 7.36, PCO2 45.3, PO2 82.4 on 15 L PLAN: -Patient is DNR/DNI, confirmed with nurse at bedside -Heparin for DVT prophylaxis -Solu-Medrol 40 IV every 8 hours -DuoNeb treatment -Bumex increased to 2 mg every 8 hours, metolazone, creatinine 3.1 -Cardiology has been consulted -Given DEISI, cardiorenal syndrome, will consult nephrology -Broad-spectrum antibiotics vancomycin, Zosyn and azithromycin -Sputum cultures, blood cultures, urine bacterial antigens, urine cultures -Daily I's and O's, monitor urine output, -Monitor creatinine as received contrast, creatinine 2.8 -Monitor respiratory status closely -BiPAP during the day, will try to wean to high flow -Speech therapy has seen the patient, mechanical soft diet -Echocardiogram: Shows an EF of LV systolic function is severely reduced with EF of 25 to 30%. Severe global hypokinesis is present. Grade 3 diastolic dysfunction is noted. Severe biatrial enlargement is present. Moderate to severe mitral regurgitation and moderate tricuspid regurgitation is present. Moderate pulmonary hypertension is noted. Elevated right atrial pressure. Status: Acute (2) Chronic kidney disease (CKD): -Failed left arm AV fistula, not accessible -Baseline creatinine not known, currently 3.1 , it was high as 3 at [facility] -Has cardiorenal syndrome -Diuresis as above Status: Acute (3) CVA (cerebral vascular accident): -Left-sided weakness -Chronic dysphagia -On [facility] admission, refused modified barium swallow -Was on nectar thickened, transition to thin liquids, then to soft mechanical, then became shortness of breath -soft mechanical diet Status: Acute (4) Dialysis AV fistula malfunction: Status: Acute (5) COPD (chronic obstructive pulmonary disease): Status: Acute (6) Aspiration pneumonia: Status: Acute (7) Acute hyperkalemia: -Status post insulin, D50, calcium gluconate Status: Acute (8) Anemia: -Acute on chronic anemia -Currently 9.0 monitor Status: Acute (9) Combined systolic and diastolic heart failure: -Last EF was 25% -I do not know if he has had a coronary angiogram, not in the records, patient denies any coronary angiogram Status: Acute (10) NSTEMI (non-ST elevated myocardial infarction): -6-hour troponin 322.3, delta 7.3 -BNP over 70,000, creatinine 2.8 -EKG shows ST depressions in anterior leads, -Aspirin, statin -Have consulted cardiology Status: Acute Attestations Medical Necessity Statement*: Patient requires hospitalization for acute respiratory failure secondary to pulmonary edema, severe CHF, COPD Coding Level of Care Code Acute Disease Intervention Specialist for [facility] Diagnoses Acute respiratory failure with hypoxia J96.01 Chronic kidney disease (CKD) N18.9 CVA (cerebral vascular accident) I63.9 Dialysis AV fistula malfunction T82.590A COPD (chronic obstructive pulmonary disease) J44.9 Aspiration pneumonia J69.0 Acute hyperkalemia E87.5 Anemia D64.9 Combined systolic and diastolic heart failure I50.40 NSTEMI (non-ST elevated myocardial infarction) I21.4
--- NOTE | 2020-02-02 14:31 | PC.NURSE ---
Assumed patient care at 1100. The 1000 charted assessment should reflect the 1100 assessment.
[2020-02-02 15:06] LABS: ABG PCO2 36.8 mmHg (35-45); ABG PH Result 7.45 (7.35-7.45); Arterial Blood Gas Hematocrit 27.7 % (42-52); Base Excess ABG 1.3 mmol/L (-2.0-2.0); Blood Gas Allen Test Pos; Blood Gas Sample Site Brachial, right; Blood Gas Sample Type Arterial; HCO3 ABG 25.3 mmol/L (22-26); Oxygen Device NC; PO2 ABG 59.3 mmHg (80.0-100.0)
--- NOTE | 2020-02-02 18:14 | PM.PN ---
Subjective Subjective: Interval history: Patient feels his breathing has significantly improved compared to yesterday. He is currently on Bumex 2mg TID and Metolazone. His blood pressure is still borderline high. Vitals/I&O/Wt Last Vital Signs Temp 98.7 F 02/02/20 16:00 Pulse 84 02/02/20 16:30 Resp 18 02/02/20 16:30 BP 136/70 02/02/20 16:30 Pulse Ox 96 02/02/20 16:30 02/02/20 02/02/20 02/02/20 06:59 14:59 22:59 Intake Total 500 / 1970 640 / 640 Output Total 1100 / 1685 650 / 650 Balance -600 / 285 -10 / -10 Weight last 48 hrs Weight 140 lb 10.724 oz Weight 136 lb 7 oz Weight 133 lb 1 oz Physical Exam Narrative: EXAM NARRATIVE: Const COMMON NORMALS: no acute distress and patient oriented x3 HENMT COMMON NORMALS: normocephalic HEAD & SCALP: normocephalic Neck/C-Spine COMMON NORMALS: no JVD Resp COMMON NORMALS: normal respiratory effort and No retractions AUSCULTATION: wheezes and diminished lung sounds bilateral in the lower lung be and diffuse crackles. Cardio COMMON NORMALS: no JVD, regular rate, regular rhythm, S1 normal heart sound present and S2 normal heart sound present RATE: regular rate RHYTHM: regular rhythm HEART SOUNDS: S1 normal heart sound present and S2 normal heart sound present GI COMMON NORMALS: Normal to inspection, nondistended, normoactive bowel sounds present, Soft to palpation, non-tender, No hepatosplenomegaly present, no masses and no bruits PALPATION: Yes Soft to palpation and Yes No hepatosplenomegaly present Extremity COMMON NORMALS: capillary refill normal, no clubbing, cyanosis or edema, no calf tenderness and no pedal edema Neuro COMMON NORMALS: patient oriented x3 Psych COMMON NORMALS: mental status grossly normal Urinary Catheter Management^: Coude: Cath Placed During This Visit: yes Reason for Continuing Indwelling Catheter: Accurate Measurement of Urinary Output in Critically Ill Patients Urinary Catheter Date of Insertion: 02/01/20 Urinary Catheter Time of Insertion: 02:00 Data : 02/02/20 03:30 02/02/20 03:30 Micro: Microbiology 01/31/20 22:53 MRSA Culture - Final Nose A&P Assessment and plan (1) Combined systolic and diastolic heart failure: Status: Acute (2) Acute respiratory failure with hypoxia: Status: Acute (3) COPD (chronic obstructive pulmonary disease): Status: Acute (4) CVA (cerebral vascular accident): Status: Acute (5) Troponin level elevated: Status: Acute Patient has been transferred from custodial and has complex medical history with known CHF and CKD with prior plans for dialysis and a failed fistula. He is DNR/DNI. Per history he was producing good urine output recently. Has presented with acute respiratory failure. Apparently etiology for CHF has not been determined. He possibly has underlying pneumonia however CXR and echo consistent with volume overload. This could be from CHF exacerbation or worsening of his underlying kidney disease as he is not making much urine now. Urine output has improved compared to yesterday. Bumex can be uptitrated further. Continue Metolazone. He does not seem to be in cardiogenic shock with elevated blood pressures currently. Troponin did not trend up. High in setting of CKD and CHF. Treat possible pneumonia with empiric antibiotics. Had likely aspiration event at custodial Blood pressure control. Thank you for involving us with the care of this patient. Please call with questions Attestations Medical Necessity Statement*: Care expected to cross 2 midnights. Coding Level of Care Code Acute Rescue Worker for Harjit Garcia Diagnoses Combined systolic and diastolic heart failure I50.40 Acute respiratory failure with hypoxia J96.01 COPD (chronic obstructive pulmonary disease) J44.9 CVA (cerebral vascular accident) I63.9 Troponin level elevated R77.8
[2020-02-02] MEDS: gabapentin 100 mg Capsule PO (19:59)
[2020-02-02] MEDS: azithromycin 500 MG in sodium chloride 0.9% 250 ML 250 MG IV (19:59)
--- NOTE | 2020-02-02 20:38 | PC.NURSE ---
New Order: Patient stated he has not been able to sleep for 3 days , and asked if RN could get something to aid in decreased insomnia. MD mission coordinator gave v/o for Ambien 5mg PRN to be given.
[2020-02-02] MEDS: zolpidem 5 mg Tablet PO (20:42)
[2020-02-02] MEDS: TRAMadol 50 mg Tablet PO (21:33)
[2020-02-02] MEDS: acetaminophen 325 mg Tablet 650 MG PO (21:33)
--- NOTE | 2020-02-02 23:15 | PC.NURSE ---
[facility] Pharmacy and MD notified. RN to hold via Pharmacy. MD pv design and installation technician notified and agreed with pharmacy's decision.
[2020-02-03] VITALS (40 sets, daily range): BP systolic 145–176; BP diastolic 54–89; PULSE 58–113; RESP 6–24; TEMP 36.5–37.1; O2SAT 90–100
[2020-02-03] MEDS: ipratropium-albuterol 3 mL Neb INHALATION ×5 (00:48→15:09)
[2020-02-03] MEDS: bumetanide 0.25 mg/mL SDV 10 mL 2 MG IV ×2 (01:23→13:27)
[2020-02-03] MEDS: piperacillin-tazobactam 3.375 GM in sodium chloride 0.9% (plus) 50 ML IV ×3 (01:23→17:32)
[2020-02-03 04:13] LABS: INR 1.09 (0.8-1.2)
[2020-02-03 04:23] LABS: D Dimer 6.49 ug/mIFEU (0-0.59)
[2020-02-03 04:30] LABS: Creatine Phosphokinase 14 U/L (39-308)
[2020-02-03 04:31] LABS: Alanine Aminotransferase 7 U/L (0-41); Albumin Level 3.3 g/dL (3.5-5.2); Alkaline Phosphatase 84 IU/L (40-130); Anion Gap 16.4 (5-19); Aspartate Amino Transferase 8 U/L (0-40); Blood Urea Nitrogen 67 mg/dL (6-20); C Reactive Protein 21.3 mg/L (0.0-4.9); Calcium 8.5 mg/dL (8.5-10.5); Carbon Dioxide 27 mmol/L (22-29); Chloride 94 mmol/L (98-107); Globulin 2.1 g/dL (1.3-4.6); Glomerular Filtration Rate 19.3 mL/min (90-130); Glucose 178 mg/dL (65-115); Magnesium 2.2 mg/dL (1.7-2.3); Osmolality Calculated 302 mOsm/kg (285-295); Phosphorus 4.9 mg/dL (2.5-4.5); Potassium 3.4 mmol/L (3.5-5.1); Sodium 134 mmol/L (136-145); Total Bilirubin 0.8 mg/dL (0.15-1.2); Total Protein 5.4 g/dL (6.6-8.7)
[2020-02-03 05:33] LABS: Hematocrit 26.3 % (42.0-52.0); Hemoglobin 8.4 g/dL (11.7-16.6); Lymphocytes # 0.4 10^3/uL (0.8-4.8); Lymphocytes % 4.6 %; Mean Corpuscular HGB Conc 31.9 g/dL (30.0-36.0); Mean Corpuscular Hemoglobin 27.6 pg (28.0-34.0); Mean Corpuscular Volume 86.5 fL (80-94); Mean Platelet Volume 10.2 fL (7.4-10.4); Monocytes # 0.4 10^3/uL (0.2-0.9); Monocytes % 5.3 %; Neutrophils # 7.29 10^3/uL (1.8-7.7); Neutrophils % 89.9 %; Nucleated Red Blood Cells % 0 %; Platelet Count 146 10^3/cmm (130-400); Red Blood Count 3.04 10^6/uL (4.1-5.3); Red Cell Distribution Width 15.2 % (12.1-15.1); White Blood Count 8.1 10^3/uL (4.0-10.0)
--- NOTE | 2020-02-03 06:00 | ECG_ITS ---
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 Measurements Intervals [place] Rate: 76 P: 103 VA: 176 QRS: 44 QRSD: 110 T: 163 QT: 410 QTc: 463 Interpretive Statements SINUS RHYTHM POSSIBLE LEFT ATRIAL ENLARGEMENT [-0.1mV P WAVE IN V1/V2] ST DEVIATION AND MODERATE T-WAVE ABNORMALITY, CONSIDER LATERAL ISCHEMIA [-0.1+ mV T WAVE IN I/aVL/V5/V6] Compared to ECG 02/02/2020 06:46:56 T-wave abnormality now present Possible ischemia now present Left ventricular hypertrophy no longer present ST (T wave) deviation no longer present Electronically Signed On 02-03-2020 19:31:09 STEAM SHOVEL OILER by Mitul Dwyer M.D. [email or web address]
--- NOTE | 2020-02-03 06:36 | PC.NURSE ---
Shift Summary: Patient has had an uneventful shift overnight. Verbalized that he wanted/needed something to aid in sleep as he has not slept in a few days. Ambien PO was given. Still, he only has fallen asleep within the last couple of hours. Total of 3 hours slept throughout shift. He often fixates on his v/s and requests for RN to update him on his SPO2 status, while fixating on how much supplemental O2 he is on. He often needs to be reminded to keep NC in his nose, and not to pull on IV lines. RN has found NC sitting beside patient and placed on pillow, with SPO2 alarming in the low 80's. There have been a few instances in which he desats into high 70-80%, but will quickly return back to 94-98%. RN has observed some possible sleep apnea during time slept. Expiration/inspiration wheezing noted at times as well. New order for pt to have a 1500mL fluid restriction was received overnight from MD Jacqueline. 3L NC 1700 u/o
--- NOTE | 2020-02-03 07:00 | XR_ITS ---
WS: [id number] Portable AP upright chest, 02/03/2020 Clinical Data: sob Comparison: Portable chest, 02/02/2020 Findings: The bilateral opacities show progression on the right. The left opacity may be the same but there is now a left lateral pleural effusion. The heart is slightly enlarged. Monitor leads on the chest wall. XR/XR chest 1V portable [id number] Impression: 1. Worsening of right lung opacity. 2. Development of left lateral pleural effusion.
[2020-02-03 07:03] LABS: NT Pro B Type Natriuretic Pept > 70000 pg/mL (0-125)
[2020-02-03] MEDS: cloNIDine 0.1 mg Tablet PO (08:35)
[2020-02-03] MEDS: aspirin 81 mg EC Tablet PO (08:35)
[2020-02-03] MEDS: carvedilol 6.25 mg Tablet PO ×2 (08:36→17:34)
[2020-02-03] MEDS: metOLazone 5 MG Tablet PO (08:36)
[2020-02-03] MEDS: amlodipine 10 mg Tablet PO (08:36)
[2020-02-03] MEDS: potassium chloride ER 20 mEq Tablet 40 MEQ PO (08:37)
[2020-02-03] MEDS: pantoprazole 40 mg SDV IVP (08:37)
[2020-02-03] MEDS: doxazosin 4 mg Tablet PO ×2 (08:38→19:49)
[2020-02-03] MEDS: sucralfate 1 gm Tablet PO ×4 (08:40→20:01)
--- NOTE | 2020-02-03 09:30 | PC.CHAP ---
Pastoral Care Encounter/Spiritual Assessment Type of Contact [] Declined auto seat cover installer visit [] Patient/Family/Request visit [] Outpatient visit [] Follow-up visit [] Physician referral [] Code/Alert [x] Routine visit [] Staff referral [] Actively dying [] Patient sleeping [] Family support [] [] Out of room [] Palliative care [] [] Receiving care in room [] Pre-surgical visit [] Trauma [] Long length of stay [] ICU visit [] Other: Relational/Emotional Strength [] Patient feels connected with others/family/visitors/staff [] Distress [] Loneliness/isolation [] Abandonment Spirituality of Patient [] Person of Harika [] Attends Scientology of their Harika [] Believes in Prayer [] Reads Bible or Faith materials [] There are Spiritual issues to be addressed Inbound Sales Manager Interventions [x] Prayer [x] Active listening [x] Non-anxious presence [x] Spiritual/emotional support [] Crisis/trauma care [] Spiritual counseling [] Bereavement support [] Provided bereavement packet [] Provided Bible/devotional materials [] Provided toy/stuffed animal, coloring book to patient or family member [] Provided Communion [] Anointing/[place] [] Salvation [x] Completed spiritual assessment [] Other: Impact on Illness or Injury [] Angry [] Fearful [] Anxious [] Often cries [] Exhaustion [] Unable to work [] Unable to attend methodist [] Unable to walk/stand [] Unable to read [] Unable to drive [] Unable to eat/drink [] Unable to sleep [] Unable to be with family [] Patient intubated [] Other: Summary patient setting up in chair Time spent with patient 5 min
[2020-02-03] MEDS: polyethylene glycol 3350 Pkt 17 gm PO (10:16)
[2020-02-03 10:29] LABS: Procalcitonin 0.28 ng/mL (0-0.5)
--- NOTE | 2020-02-03 12:18 | PM.PN ---
Subjective Subjective: Interval history: This morning patient was examined, he sitting up into a chair, is on 2 L, he tells me that he is feeling significantly better, no fevers, no chills, no nausea, no no vomiting, no chest pain, a bit hypertensive throughout the afternoon yesterday to this morning Vitals/I&O/Wt Last Vital Signs Temp 98.0 F 02/03/20 08:00 Pulse 60 02/03/20 11:55 Resp 16 02/03/20 11:55 BP 173/84 02/03/20 09:00 Pulse Ox 97 02/03/20 11:55 02/02/20 02/03/20 02/03/20 22:59 06:59 14:59 Intake Total 1110 / 1750 50 / 1800 300 / 300 Output Total 600 / 1250 1700 / 2950 Balance 510 / 500 -1650 / -1150 300 / 300 Weight last 48 hrs Weight 63.928 kg Weight 63.807 kg Physical Exam Const: COMMON NORMALS: no acute distress and patient oriented x3 HENMT: COMMON NORMALS: normocephalic HEAD & SCALP: normocephalic Neck/C-Spine: COMMON NORMALS: no JVD Resp: COMMON NORMALS: normal respiratory effort, No retractions and No use of accessory muscles AUSCULTATION: diminished lung sounds bilateral in the lower lung be Cardio: COMMON NORMALS: no JVD, regular rate, regular rhythm, S1 normal heart sound present and S2 normal heart sound present RATE: regular rate RHYTHM: regular rhythm HEART SOUNDS: S1 normal heart sound present and S2 normal heart sound present GI: COMMON NORMALS: Normal to inspection, nondistended, normoactive bowel sounds present, Soft to palpation, non-tender, No hepatosplenomegaly present, no masses and no bruits PALPATION: Yes Soft to palpation and Yes No hepatosplenomegaly present Extremity: COMMON NORMALS: capillary refill normal, no clubbing, cyanosis or edema, no calf tenderness and no pedal edema Neuro: COMMON NORMALS: patient oriented x3 Psych: COMMON NORMALS: mental status grossly normal Urinary Catheter Management^: Coude: Cath Placed During This Visit: yes Reason for Continuing Indwelling Catheter: Accurate Measurement of Urinary Output in Critically Ill Patients Urinary Catheter Date of Insertion: 02/01/20 Urinary Catheter Time of Insertion: 02:00 Data : 02/03/20 03:30 02/03/20 03:30 A&P Assessment and plan (1) Acute respiratory failure with hypoxia: -Secondary to aspiration pneumonia, pulmonary edema, acute combined systolic or diastolic heart failure, COPD exacerbation -Influenza pending, rapid Covid negative CTA 1. No evidence of pulmonary embolus. 2. Small right greater than left pleural effusions with compressive atelectasis in the lung bases. Subtotal subsegmental consolidative atelectasis in the left lower lobe. 3. A few hazy groundglass infiltrates in the right upper lobe and right middle lobe. 4. Reactive anterior mediastinal and peribronchial lymph nodes. 5. 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 Evidence of prior aneurysm repair in the infrarenal abdominal aorta. 6. Aneurysmal upper abdominal aorta measuring 5.1 x 4.4 CM. -History of smoking -History of combined systolic diastolic heart failure, last echo showed EF of 25% -No history of obstructive CAD as per my knowledge, no history of cardiac cath, no history of CABG -Recent hospitalization at [facility], hospitalization for pneumonia, has risk factors for healthcare associate pneumonia -White blood cell count 7.7, hemoglobin 9.1 -BMP over 70,000, 6-hour troponin 322.3, delta 7.3 -Chest x-ray this morning shows worsening right lung opacity, development of the left lateral pleural effusion, remains afebrile, no significant leukocytosis, down to 2 L, is clinically improving PLAN: -Patient is DNR/DNI, confirmed with nurse at bedside -Heparin for DVT prophylaxis -Solu-Medrol 40 IV every 12 hours -DuoNeb treatment -Bumex decreased to 2 mg every 12 hours, metolazone 5 mg, creatinine 3.3 -Cardiology has been consulted -Given DEISI, cardiorenal syndrome, nephrology is on consult -Stop vancomycin, continue Zosyn and azithromycin -Sputum cultures, blood cultures, urine bacterial antigens, urine cultures all so far have been unremarkable -Daily I's and O's, monitor urine output, -Monitor creatinine as received contrast, creatinine 3.3 -Monitor respiratory status closely -BiPAP during the day, as needed, currently on high flow -Speech therapy has seen the patient, mechanical soft diet -Echocardiogram: Shows an EF of LV systolic function is severely reduced with EF of 25 to 30%. Severe global hypokinesis is present. Grade 3 diastolic dysfunction is noted. Severe biatrial enlargement is present. Moderate to severe mitral regurgitation and moderate tricuspid regurgitation is present. Moderate pulmonary hypertension is noted. Elevated right atrial pressure. Status: Acute (2) Chronic kidney disease (CKD): -Failed left arm AV fistula, not accessible -Baseline creatinine not known, currently 3.3 , it was high as 3 at [facility] -Has cardiorenal syndrome -Diuresis as above Status: Acute (3) CVA (cerebral vascular accident): -Left-sided weakness -Chronic dysphagia -On [facility] admission, refused modified barium swallow -Was on nectar thickened, transition to thin liquids, then to soft mechanical, then became shortness of breath -soft mechanical diet Status: Acute (4) Dialysis AV fistula malfunction: Status: Acute (5) COPD (chronic obstructive pulmonary disease): Status: Acute (6) Aspiration pneumonia: Status: Acute (7) Acute hyperkalemia: -Status post insulin, D50, calcium gluconate Status: Acute (8) Anemia: -Acute on chronic anemia -Currently 9.0 monitor Status: Acute (9) Combined systolic and diastolic heart failure: -Last EF was 25% -I do not know if he has had a coronary angiogram, not in the records, patient denies any coronary angiogram Status: Acute (10) NSTEMI (non-ST elevated myocardial infarction): -6-hour troponin 322.3, delta 7.3 -BNP over 70,000, creatinine 2.8 -EKG shows ST depressions in anterior leads, -Aspirin, statin -Have consulted cardiology Status: Acute Additional A&P Information Critical care time spent 45 minutes Plan for today, although chest x-ray shows worsening pulmonary vascular congestion, patient is clinically doing better, creatinine is worsening to 3.3 decrease diuretics to Bumex 2 mg every 12 hours, monitor urine output, monitor creatinine, monitor respiratory status, increase clonidine 0.3 mg 3 times daily, if blood pressures remain high, will add Imdur Attestations Medical Necessity Statement*: Patient requires hospitalization for acute respiratory failure secondary to CHF, pulmonary edema, pneumonia Coding Level of Care Code Acute Supervisor Modern Languages for [facility] Fwd Diagnoses Acute respiratory failure with hypoxia J96.01 Chronic kidney disease (CKD) N18.9 CVA (cerebral vascular accident) I63.9 Dialysis AV fistula malfunction T82.590A COPD (chronic obstructive pulmonary disease) J44.9 Aspiration pneumonia J69.0 Acute hyperkalemia E87.5 Anemia D64.9 Combined systolic and diastolic heart failure I50.40 NSTEMI (non-ST elevated myocardial infarction) I21.4
--- NOTE | 2020-02-03 12:32 | P.PN_ITS ---
Subjective Subjective: Interval history: Patient mentions that he is feeling well. He is now on 2 L oxygen and is saturating well. His blood pressure is high today. Urine output has increased. Vitals/I&O/Wt Last Vital Signs Temp 98.0 F 02/03/20 08:00 Pulse 60 02/03/20 11:55 Resp 16 02/03/20 11:55 BP 173/84 02/03/20 09:00 Pulse Ox 97 02/03/20 11:55 02/02/20 02/03/20 02/03/20 22:59 06:59 14:59 Intake Total 1110 / 1750 50 / 1800 300 / 300 Output Total 600 / 1250 1700 / 2950 Balance 510 / 500 -1650 / -1150 300 / 300 Weight last 48 hrs Weight 140 lb 15 oz Weight 140 lb 10.724 oz Physical Exam Narrative: EXAM NARRATIVE: Const COMMON NORMALS: no acute distress and patient oriented x3 HENMT COMMON NORMALS: normocephalic HEAD & SCALP: normocephalic Neck/C-Spine COMMON NORMALS: no JVD Resp COMMON NORMALS: normal respiratory effort and No retractions AUSCULTATION: wheezes and diminished lung sounds bilateral in the lower lung be and diffuse crackles. Cardio COMMON NORMALS: no JVD, regular rate, regular rhythm, S1 normal heart sound present and S2 normal heart sound present RATE: regular rate RHYTHM: regular rhythm HEART SOUNDS: S1 normal heart sound present and S2 normal heart sound present GI COMMON NORMALS: Normal to inspection, nondistended, normoactive bowel sounds present, Soft to palpation, non-tender, No hepatosplenomegaly present, no masses and no bruits PALPATION: Yes Soft to palpation and Yes No hepatosplenomegaly present Extremity COMMON NORMALS: capillary refill normal, no clubbing, cyanosis or edema, no calf tenderness and no pedal edema Neuro COMMON NORMALS: patient oriented x3 Psych COMMON NORMALS: mental status grossly normal Urinary Catheter Management^: Coude: Cath Placed During This Visit: yes Reason for Continuing Indwelling Catheter: Accurate Measurement of Urinary Output in Critically Ill Patients Urinary Catheter Date of Insertion: 02/01/20 Urinary Catheter Time of Insertion: 02:00 Data : 02/03/20 12:38 02/03/20 03:30 A&P Assessment and plan (1) Combined systolic and diastolic heart failure: Status: Acute (2) Acute respiratory failure with hypoxia: Status: Acute (3) COPD (chronic obstructive pulmonary disease): Status: Acute (4) CVA (cerebral vascular accident): Status: Acute (5) Troponin level elevated: Status: Acute (6) Acute kidney injury superimposed on CKD: Status: Acute Patient is feeling better today. We will recommend continue diuresing at current doses of Bumex and metolazone. If tomorrow's creatinine shows an upward trend, will need to down titrate dose of Bumex. Blood pressure is still elevated. Increase dose of Coreg to 12.5 mg twice daily. If heart rate tolerates, can further be uptitrated. Continue clonidine and amlodipine. Thank you for involving us with care of this patient please call with questions. Attestations Medical Necessity Statement*: Care expected to cross 2 midnights. Coding Level of Care Code Acute Beam Press Operator for [facility] Diagnoses Combined systolic and diastolic heart failure I50.40 Acute respiratory failure with hypoxia J96.01 COPD (chronic obstructive pulmonary disease) J44.9 CVA (cerebral vascular accident) I63.9 Troponin level elevated R77.8 Acute kidney injury superimposed on CKD N17.9; N18.9
[2020-02-03 12:46] LABS: Hematocrit 30.5 % (42.0-52.0); Hemoglobin 9.7 g/dL (11.7-16.6); Lymphocytes # 0.6 10^3/uL (0.8-4.8); Mean Corpuscular HGB Conc 31.8 g/dL (30.0-36.0); Mean Corpuscular Hemoglobin 27.9 pg (28.0-34.0); Mean Corpuscular Volume 87.6 fL (80-94); Mean Platelet Volume 9.7 fL (7.4-10.4); Monocytes # 0.6 10^3/uL (0.2-0.9); Monocytes % 5.5 %; Neutrophils # 8.88 10^3/uL (1.8-7.7); Nucleated Red Blood Cells % 0 %; Platelet Count 163 10^3/cmm (130-400); Red Blood Count 3.48 10^6/uL (4.1-5.3); Red Cell Distribution Width 15.1 % (12.1-15.1); White Blood Count 10.1 10^3/uL (4.0-10.0)
[2020-02-03] MEDS: cloNIDine 0.1 mg Tablet 0.3 MG PO ×2 (13:25→20:01)
--- NOTE | 2020-02-03 14:53 | P.PN_ITS ---
Subjective Subjective: Interval history: Sleeping while I am rounding. RNs report that he feels a little better, up and eating and drinking well. Breathing more comfortably Making good volume of urine in response to high dose diuretics No uremic Sx. No chest pain, palpitations Blood pressures have remained high Vitals/I&O/Wt Last Vital Signs Temp 98.0 F 02/03/20 08:00 Pulse 65 02/03/20 14:00 Resp 10 L 02/03/20 13:00 BP 164/77 02/03/20 13:00 Pulse Ox 99 02/03/20 12:00 02/02/20 02/03/20 02/03/20 22:59 06:59 14:59 Intake Total 1110 / 1750 50 / 1800 850 / 850 Output Total 600 / 1250 1700 / 2950 800 / 800 Balance 510 / 500 -1650 / -1150 50 / 50 Weight last 48 hrs Weight 63.928 kg Weight 63.807 kg Physical Exam Narrative: EXAM NARRATIVE: Constitutional: Comfortable HEENT: Wet mucosa, no jvp, non icteric Lungs: Bilaterally clear without discernible wheeze, rales in all lung zones CVS: S1 S2, no murmurs Abdo: Soft, BS ok Ext 4: Minimal edema, peripheral perfusion with no cyanosis Neurological: Grossly non-focal Urinary Catheter Management^: Coude: Cath Placed During This Visit: yes Reason for Continuing Indwelling Catheter: Accurate Measurement of Urinary Output in Critically Ill Patients Urinary Catheter Date of Insertion: 02/01/20 Urinary Catheter Time of Insertion: 02:00 Data : 02/03/20 12:38 02/03/20 03:30 A&P Additional A&P Information 1. Acute kidney injury on CKD. Creatinine continue to uptrend Baseline renal function unknown. Suspect chronic kidney disease however also suspect an element of acute kidney dysfunction, likely secondary to cardiorenal syndrome This is characterized by low urinary sodium of 14 indicative of renal hypoperfusion as would be seen in cardiorenal syndrome. Currently on combination diuretics including Bumex and metolazone > we may have to back on these if renal function continues to increase despite effective diuresis Renal sonogram, basic urine chemistry is completed Avoid usual nephrotoxic agents Dose medications for GFR less than 30 2. Shortness of breath. Being treated both for potential pneumonia including broad-spectrum antibiotics including Zosyn, vancomycin and as well as combination diuretics for heart failure. Shortness of breath seems to be improving. 3. Hemodynamics. Bp remains high; on escalating doses of meds including clonidine etc; will defer to Cardiology to manage; may need Minoxidil 4. Chemistry. Mild aberration of serum chemistry including hypoK, being replaced Amaury Monterroso MD Nephrology [phone] Patient seen and examined via telemedicine, with the assistance of the bedside RN Attestations Medical Necessity Statement*: eval for DEISI Coding Level of Care Code Acute Principal Technical Architect for [employer]
[2020-02-03] MEDS: azithromycin 500 MG in sodium chloride 0.9% 250 ML 250 MG IV (19:48)
[2020-02-03] MEDS: pantoprazole DR 40 mg Tablet PO (19:49)
[2020-02-03] MEDS: gabapentin 100 mg Capsule PO (20:01)
--- NOTE | 2020-02-03 20:47 | PC.NURSE ---
Addendum entered by Jessica Ritter RN 02/03/20 20:57: Encouragement given in attempts to clear throat of built up mucus. Continued reinforcement and attempts to obtain sputum cultures have been unsuccessful this far. Patient states that there is nothing there for him cough up. Original Note: During nursing shift assessment, RN found patient to have increased inspiration/expiratory wheezes from the assessment done prior to leaving from previous overnight shift. Patient states you need to turn up my oxygen , however, his SPO2 status remains above 94%. RN also found HTN increasing after 1900. MD talent acquisition manager notified, with recommendations for MINDY 2100 BP medications to be given slightly early. Patient overall seems more lethargic, and more agitated at nursing staff this evening. He still says he is very tired. Education reinforced on tucking chin during swallowing, as he actively tries to quickly drink fluids given, which then leads to a rather large coughing fit following.
[2020-02-03] MEDS: acetaminophen 325 mg Tablet 650 MG PO (23:58)
[2020-02-03] MEDS: TRAMadol 50 mg Tablet PO (23:59)
[2020-02-04] VITALS (35 sets, daily range): BP systolic 147–188; BP diastolic 58–90; PULSE 52–75; RESP 5–26; TEMP 36.4–36.8; O2SAT 89–99
[2020-02-04] MEDS: ipratropium-albuterol 3 mL Neb INHALATION ×8 (01:24→23:54)
[2020-02-04] MEDS: piperacillin-tazobactam 3.375 GM in sodium chloride 0.9% (plus) 50 ML IV ×2 (01:44→08:02)
[2020-02-04] MEDS: zolpidem 5 mg Tablet PO (01:52)
--- NOTE | 2020-02-04 05:07 | PC.NURSE ---
New Order: HTN noted. MD notified, and new orders for ONCE 0.1 Clonidine PO given.
[2020-02-04] MEDS: cloNIDine 0.1 mg Tablet PO (05:17)
[2020-02-04 06:25] LABS: Eosinophils % 0.4 %; Hematocrit 30.5 % (42.0-52.0); Hemoglobin 9.8 g/dL (11.7-16.6); Lactate (Lactic Acid level) 0.9 mmol/L (0.5-2.2); Lymphocytes # 0.2 10^3/uL (0.8-4.8); Lymphocytes % 2.3 %; Mean Corpuscular HGB Conc 32.1 g/dL (30.0-36.0); Mean Corpuscular Hemoglobin 27.9 pg (28.0-34.0); Mean Corpuscular Volume 86.9 fL (80-94); Mean Platelet Volume 10.2 fL (7.4-10.4); Monocytes # 0.2 10^3/uL (0.2-0.9); Monocytes % 2.5 %; Neutrophils # 6.48 10^3/uL (1.8-7.7); Neutrophils % 94.4 %; Nucleated Red Blood Cells % 0 %; Platelet Count 159 10^3/cmm (130-400); Red Blood Count 3.51 10^6/uL (4.1-5.3); Red Cell Distribution Width 14.9 % (12.1-15.1); White Blood Count 6.9 10^3/uL (4.0-10.0)
[2020-02-04 06:39] LABS: INR 1.07 (0.8-1.2)
[2020-02-04 06:47] LABS: Alanine Aminotransferase 12 U/L (0-41); Albumin Level 3.2 g/dL (3.5-5.2); Alkaline Phosphatase 83 IU/L (40-130); Anion Gap 19.5 (5-19); Aspartate Amino Transferase 10 U/L (0-40); Blood Urea Nitrogen 68 mg/dL (6-20); C Reactive Protein 13.2 mg/L (0.0-4.9); Calcium 8.6 mg/dL (8.5-10.5); Carbon Dioxide 29 mmol/L (22-29); Chloride 91 mmol/L (98-107); Globulin 2.5 g/dL (1.3-4.6); Glomerular Filtration Rate 19.3 mL/min (90-130); Glucose 149 mg/dL (65-115); Magnesium 2.1 mg/dL (1.7-2.3); Osmolality Calculated 305 mOsm/kg (285-295); Phosphorus 4.3 mg/dL (2.5-4.5); Potassium 3.5 mmol/L (3.5-5.1); Sodium 136 mmol/L (136-145); Total Bilirubin 1.1 mg/dL (0.15-1.2); Total Protein 5.7 g/dL (6.6-8.7)
--- NOTE | 2020-02-04 06:51 | PC.NURSE ---
Shift Summary: Patient had mostly uneventful night. Pt had some c/o pain that was treated with Tramadol and APAP PO. HTN with SBP in 160-170's. MD quarter section ironer notified, and gave one time order of additional clonidine to be given. Patient was able to give sputum sample as of this early AM, which has been sent to lab. Pt had more difficulty sleeping again, and requested something to take in efforts of falling asleep. Ambien PO given. After some sleep achieved, patient was more receptive in nursing interventions to clear sputum buildup. O2 decreased to 1L via NC. SPO2 between 94-98%. A-febrile. 2250 u/o
--- NOTE | 2020-02-04 07:00 | XRR_ITS ---
PROCEDURE INFORMATION: Exam: XR Chest, 1 View Exam date and time: 02/03/2020 11:59 PM Age: 59 years old Clinical indication: Shortness of breath; Additional info: SOB TECHNIQUE: Imaging protocol: XR of the chest Views: 1 view. COMPARISON: CR XR chest 1V portable [id number] 02/03/2020 4:55 AM FINDINGS: Lungs: Bibasilar pulmonary infiltrates are present especially on the left side. These infiltrates have significantly improved. Pleural space: There is a small left effusion blunting of the costophrenic angle but the effusion has significantly decreased. Heart/Mediastinum: Unremarkable. No cardiomegaly. Bones/joints: Unremarkable. XR/XR chest 1V portable [id number] IMPRESSION: Significant improvement of bilateral pulmonary infiltrates and left effusion.
[2020-02-04 07:44] LABS: Procalcitonin 0.18 ng/mL (0-0.5)
[2020-02-04 07:56] LABS: Creatine Phosphokinase 8 U/L (39-308)
[2020-02-04] MEDS: sucralfate 1 gm Tablet PO ×3 (07:57→20:02)
[2020-02-04] MEDS: cloNIDine 0.1 mg Tablet 0.3 MG PO ×3 (08:01→20:03)
[2020-02-04] MEDS: amlodipine 10 mg Tablet PO (08:01)
[2020-02-04] MEDS: metOLazone 5 MG Tablet PO (08:02)
[2020-02-04] MEDS: aspirin 81 mg EC Tablet PO (08:02)
[2020-02-04] MEDS: polyethylene glycol 3350 Pkt 17 gm PO (08:02)
[2020-02-04] MEDS: doxazosin 4 mg Tablet PO ×2 (08:02→20:02)
[2020-02-04] MEDS: pantoprazole DR 40 mg Tablet PO ×2 (08:02→20:02)
[2020-02-04] MEDS: carvedilol 6.25 mg Tablet PO ×2 (08:02→17:19)
[2020-02-04] MEDS: isosorbide mononitrate ER 30 mg Tablet PO (08:05)
[2020-02-04 09:17] LABS: NT Pro B Type Natriuretic Pept > 70000 pg/mL (0-125)
[2020-02-04] MEDS: azithromycin 250 mg Tablet PO (09:42)
[2020-02-04] MEDS: predniSONE 20 mg Tablet 40 MG PO (09:42)
--- NOTE | 2020-02-04 10:24 | P.PN_ITS ---
Subjective Subjective: Interval history: This morning patient was examined, he is doing well he says, sitting up in a chair, enjoying his eggs and toast, he is on 1 L nasal cannula, ambulating with physical therapy, no chest pain, no lightheadedness, no dizziness, no nausea, no vomiting Vitals/I&O/Wt Last Vital Signs Temp 98.3 F 02/04/20 04:00 Pulse 65 02/04/20 09:00 Resp 18 02/04/20 08:57 BP 154/58 02/04/20 08:01 Pulse Ox 97 02/04/20 08:57 02/03/20 02/04/20 02/04/20 22:59 06:59 14:59 Intake Total 650 / 1500 300 / 1800 Output Total 650 / 1450 2250 / 3700 Balance 0 / 50 -1950 / -1900 Weight last 48 hrs Weight 62.937 kg Weight 63.928 kg Physical Exam Const: COMMON NORMALS: no acute distress and patient oriented x3 GENERAL APPEARANCE: cooperative and comfortable HENMT: COMMON NORMALS: normocephalic HEAD & SCALP: normocephalic Eye: COMMON NORMALS: Equal, round and reactive pupils present and EOMs intact bilaterally GENERAL EYE: appearance normal, both eyes and all related structures PUPIL: Yes Equal, round and reactive pupils present Neck/C-Spine: COMMON NORMALS: no JVD and Thyroid normal THYROID: Thyroid normal Lymph: LYMPHATIC: no lymphadenopathy noted Resp: COMMON NORMALS: normal respiratory effort, No retractions, No use of accessory muscles and clear to auscultation bilaterally EFFORT & INSPECTION: Yes tachypneic and Yes uses accessory muscles AUSCULTATION: clear to auscultation bilaterally Cardio: COMMON NORMALS: no JVD, regular rate, regular rhythm, S1 normal heart sound present and S2 normal heart sound present RATE: regular rate RHYTHM: regular rhythm HEART SOUNDS: S1 normal heart sound present and S2 normal heart sound present GI: COMMON NORMALS: Normal to inspection, nondistended, normoactive bowel sounds present, Soft to palpation, non-tender, No hepatosplenomegaly present, no masses and no bruits PALPATION: Yes Soft to palpation and Yes No hepatosplenomegaly present Extremity: COMMON NORMALS: capillary refill normal, no clubbing, cyanosis or edema, no calf tenderness and no pedal edema Neuro: COMMON NORMALS: patient oriented x3 Psych: COMMON NORMALS: mental status grossly normal and Normal thought process present THOUGHT PROCESS: Normal thought process present Skin: NARRATIVE SKIN EXAM: Left arm AV fistula Urinary Catheter Management^: Coude: Cath Placed During This Visit: yes Reason for Continuing Indwelling Catheter: Accurate Measurement of Urinary Output in Critically Ill Patients Urinary Catheter Date of Insertion: 02/01/20 Urinary Catheter Time of Insertion: 02:00 Data : 02/04/20 05:24 02/04/20 05:24 Micro: Microbiology 02/04/20 06:00 Gram Stain - Final Sputum - Expectorated Sputum A&P Assessment and plan (1) Acute respiratory failure with hypoxia: -Secondary to aspiration pneumonia, pulmonary edema, acute combined systolic or diastolic heart failure, COPD exacerbation -Influenza pending, rapid Covid negative CTA 1. No evidence of pulmonary embolus. 2. Small right greater than left pleural effusions with compressive atelectasis in the lung bases. Subtotal subsegmental consolidative atelectasis in the left lower lobe. 3. A few hazy groundglass infiltrates in the right upper lobe and right middle lobe. 4. Reactive anterior mediastinal and peribronchial lymph nodes. 5. 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 Evidence of prior aneurysm repair in the infrarenal abdominal aorta. 6. Aneurysmal upper abdominal aorta measuring 5.1 x 4.4 CM. -History of smoking -History of combined systolic diastolic heart failure, last echo showed EF of 25% -No history of obstructive CAD as per my knowledge, no history of cardiac cath, no history of CABG -Recent hospitalization at [facility], hospitalization for pneumonia, has risk factors for healthcare associate pneumonia -White blood cell count 7.7, hemoglobin 9.1 -BMP over 70,000, 6-hour troponin 322.3, delta 7.3 -Chest x-ray this morning shows improving pulmonary vascular congestion, white blood cell count 6.9, clinically improving, on 1 L PLAN: -Patient is DNR/DNI, confirmed with nurse at bedside -Lovenox for DVT prophylaxis resume today -Solu-Medrol 40 p.o. every 24 hours -DuoNeb treatment -Bumex decreased to 2 mg every 12 hours, metolazone 5 mg, creatinine 3.3, urine output over 3 L -Cardiology has been consulted -Given DEISI, cardiorenal syndrome, nephrology is on consult -Stop Zosyn, azithromycin, vancomycin stopped yesterday, de-escalate to Augmentin p.o. -Sputum cultures, blood cultures, urine bacterial antigens, urine cultures all so far have been unremarkable -Daily I's and O's, monitor urine output, -Monitor creatinine as received contrast, creatinine 3.3 -Monitor respiratory status closely -BiPAP during the day, as needed, currently on high flow -Speech therapy has seen the patient, mechanical soft diet -Echocardiogram: Shows an EF of LV systolic function is severely reduced with EF of 25 to 30%. Severe global hypokinesis is present. Grade 3 diastolic dysfunction is noted. Severe biatrial enlargement is present. Moderate to severe mitral regurgitation and moderate tricuspid regurgitation is present. Moderate pulmonary hypertension is noted. Elevated right atrial pressure. Plan for today: Move out of out of ICU, to the cardiac stepdown unit, continue diuresis, will consider dropping down on diuresis tonight, overall improving, plan on discharge in the next 24 to 48 hours, awaiting cardiology recommendation on possible cardiac catheterization Status: Acute (2) Chronic kidney disease (CKD): -Failed left arm AV fistula, not accessible -Baseline creatinine not known, currently 3.3 , it was high as 3 at [facility] -Has cardiorenal syndrome -Diuresis as above Status: Acute (3) CVA (cerebral vascular accident): -Left-sided weakness -Chronic dysphagia -On [facility] admission, refused modified barium swallow -Was on nectar thickened, transition to thin liquids, then to soft mechanical, then became shortness of breath -soft mechanical diet Status: Acute (4) Dialysis AV fistula malfunction: Status: Acute (5) COPD (chronic obstructive pulmonary disease): Status: Acute (6) Aspiration pneumonia: Status: Acute (7) Acute hyperkalemia: -Status post insulin, D50, calcium gluconate -Stable now Status: Acute (8) Anemia: -Acute on chronic anemia -Currently 9.8 monitor -We will resume his Lovenox today Status: Acute (9) Combined systolic and diastolic heart failure: -Last EF was 25% -I do not know if he has had a coronary angiogram, not in the records, patient denies any coronary angiogram Status: Acute (10) NSTEMI (non-ST elevated myocardial infarction): -6-hour troponin 322.3, delta 7.3 -BNP over 70,000, creatinine 2.8 -EKG shows ST depressions in anterior leads, -Aspirin, statin -Have consulted cardiology Status: Acute (11) Hypertensive urgency: -Norvasc 10 mg daily -Clonidine 0.3 3 times daily -Start Imdur 30 -Monitor blood pressures carefully -If blood pressures are still high try hydralazine 10 3 times daily Status: Acute Additional A&P Information Critical care time spent 30 minutes Plan for today, move out of cardiac stepdown unit, continue incentive spirometer, flutter valve, aggressive pulmonary toilet, continue diuretic therapy, wean antibiotic therapy, resume Lovenox, plan on discharge in the next 24 to 48 hours, awaiting possible cardiology's consideration of cardiac cath Attestations 2 Medical Necessity Statement*: Patient requires hospitalization for acute respiratory failure secondary to pulmonary edema, CHF, pneumonia Coding Level 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
--- NOTE | 2020-02-04 11:02 | P.PN_ITS ---
Subjective Subjective: Interval history: He does feel better today. Less shortness of breath on exertion and comfortable at rest on 1 L nasal cannula. Participating with physical therapy. Reports no extremity edema. No uremic symptoms. Robust urine output yesterday. Vitals/I&O/Wt Last Vital Signs Temp 97.9 F 02/04/20 09:00 Pulse 61 02/04/20 10:00 Resp 21 H 02/04/20 10:00 BP 173/79 02/04/20 10:00 Pulse Ox 93 02/04/20 10:00 02/03/20 02/04/20 02/04/20 22:59 06:59 14:59 Intake Total 650 / 1500 300 / 1800 400 / 400 Output Total 650 / 1450 2250 / 3700 Balance 0 / 50 -1950 / -1900 400 / 400 Weight last 48 hrs Weight 62.937 kg Weight 63.928 kg Physical Exam Narrative: EXAM NARRATIVE: Constitutional: Comfortable HEENT: Wet mucosa, no jvp, non icteric Lungs: Bilaterally clear without discernible wheeze, rales in all lung zones CVS: S1 S2, no murmurs Abdo: Soft, BS ok Ext 4: Minimal edema, peripheral perfusion with no cyanosis Neurological: Grossly non-focal Urinary Catheter Management^: Coude: Cath Placed During This Visit: yes Reason for Continuing Indwelling Catheter: Accurate Measurement of Urinary Output in Critically Ill Patients Urinary Catheter Date of Insertion: 02/01/20 Urinary Catheter Time of Insertion: 02:00 Data : 02/04/20 05:24 02/04/20 05:24 Micro: Microbiology 02/04/20 06:00 Gram Stain - Final Sputum - Expectorated Sputum A&P Additional A&P Information 1. Acute kidney injury on CKD. Creatinine stabilized. excellent news Baseline renal function unknown. Suspect chronic kidney disease however also suspect an element of acute kidney dysfunction, likely secondary to cardiorenal syndrome Avoid usual nephrotoxic agents Dose medications for GFR less than 30 2. Shortness of breath. Improved, likely to be due to hypervolemia Being treated both for potential pneumonia including broad-spectrum antibiotics including Zosyn, vancomycin and as well as combination diuretics for heart fail ure. 3. Hemodynamics. Bp came down to 140s systolic, meds being titrated by cardiology - OOB to chair, hopefully DC home soon Amaury Monterroso MD Nephrology [phone] Patient seen and examined via telemedicine, with the assistance of the bedside RN Attestations Medical Necessity Statement*: eval for DEISI/CKD Coding Level of Care Code Acute Licensed Home Inspector for Harjit Garcia
[2020-02-04] MEDS: bumetanide 0.25 mg/mL SDV 10 mL 2 MG IV ×2 (14:07)
--- NOTE | 2020-02-04 15:10 | PM.PN ---
Subjective Subjective: Interval history: Feeling drowsy however comfortable and sleepy. Vitals/I&O/Wt Last Vital Signs Temp 97.9 F 02/04/20 09:00 Pulse 52 L 02/04/20 13:00 Resp 8 L 02/04/20 13:00 BP 169/68 02/04/20 14:08 Pulse Ox 99 02/04/20 13:00 02/04/20 02/04/20 02/04/20 06:59 14:59 22:59 Intake Total 300 / 1800 650 / 650 Output Total 2250 / 3700 700 / 700 Balance -1950 / -1900 -50 / -50 Weight last 48 hrs Weight 138 lb 12.023 oz Weight 140 lb 15 oz Physical Exam Narrative: EXAM NARRATIVE: GENERAL: Patient is sleepy but comfortable NECK: No jugular vein distension. HEENT: No cyanosis. No icterus. No pallor. HEART: Regular S1 and S2. No murmur, rub or gallop. LUNGS: Clear to auscultate bilaterally. ABDOMEN: Soft, nontender and nondistended. Positive bowel sounds. No guarding, rebound or tenderness. CENTRAL NERVOUS SYSTEM: Grossly nonfocal. EXTREMITIES: Lower extremities withour edema bilaterally. Urinary Catheter Management^: Coude: Cath Placed During This Visit: yes Reason for Continuing Indwelling Catheter: Accurate Measurement of Urinary Output in Critically Ill Patients Urinary Catheter Date of Insertion: 02/01/20 Urinary Catheter Time of Insertion: 02:00 Data : 02/04/20 05:24 02/04/20 05:24 Micro: Microbiology 02/04/20 06:00 Gram Stain - Final Sputum - Expectorated Sputum A&P Assessment and plan (1) Combined systolic and diastolic heart failure: Status: Acute (2) Acute respiratory failure with hypoxia: Status: Acute (3) COPD (chronic obstructive pulmonary disease): Status: Acute (4) CVA (cerebral vascular accident): Status: Acute (5) Troponin level elevated: Status: Acute (6) Acute kidney injury superimposed on CKD: Status: Acute Appear to be stable. Continue current regimen. 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
[2020-02-04 16:49] LABS: Glucose Point of Care 253 mg/dL (70-110)
[2020-02-04] MEDS: amoxicillin-clav 875-125 mg Tablet 1 TAB PO (17:19)
[2020-02-04] MEDS: gabapentin 100 mg Capsule PO (20:03)
[2020-02-04] MEDS: enoxaparin 30 mg/0.3 mL Syringe SUBCUT (20:04)
[2020-02-05] VITALS (24 sets, daily range): BP systolic 138–188; BP diastolic 53–87; PULSE 59–71; RESP 0–18; TEMP 36.6–36.7; O2SAT 91–98; BMI 23.0
[2020-02-05] MEDS: bumetanide 0.25 mg/mL SDV 10 mL 2 MG IV (00:28)
--- NOTE | 2020-02-05 01:28 | PC.NURSE ---
PT RESTING IN BED. PT DENIES PAIN. PT STOOD UP SBA AND USED URINAL 200ML OUT. WILL CONTINUE TO MONITOR.
[2020-02-05] MEDS: ipratropium-albuterol 3 mL Neb INHALATION ×2 (03:06→11:06)
[2020-02-05 05:41] LABS: Basophils % 0.1 %; Hematocrit 30.8 % (42.0-52.0); Lymphocytes # 0.4 10^3/uL (0.8-4.8); Lymphocytes % 5.1 %; Mean Corpuscular HGB Conc 32.5 g/dL (30.0-36.0); Mean Corpuscular Hemoglobin 27.4 pg (28.0-34.0); Mean Corpuscular Volume 84.4 fL (80-94); Mean Platelet Volume 10.2 fL (7.4-10.4); Monocytes # 0.6 10^3/uL (0.2-0.9); Monocytes % 8.3 %; Neutrophils # 6.62 10^3/uL (1.8-7.7); Neutrophils % 86.1 %; Nucleated Red Blood Cells % 0 %; Platelet Count 174 10^3/cmm (130-400); Red Blood Count 3.65 10^6/uL (4.1-5.3); Red Cell Distribution Width 14.3 % (12.1-15.1); White Blood Count 7.7 10^3/uL (4.0-10.0)
[2020-02-05] MEDS: sucralfate 1 gm Tablet PO ×3 (06:11→17:37)
--- NOTE | 2020-02-05 06:29 | PC.NURSE ---
PT RESTING IN BED. PT DENIES PAIN. PT LAYING ON LEFT SIDE. FISTULA IN LEFT ARM HAS THRILL AND NO BRUIT. WILL CONTINUE TO MONITOR.
[2020-02-05 06:36] LABS: Alanine Aminotransferase 8 U/L (0-41); Albumin Level 3.4 g/dL (3.5-5.2); Alkaline Phosphatase 82 IU/L (40-130); Aspartate Amino Transferase 8 U/L (0-40); Blood Urea Nitrogen 74 mg/dL (6-20); C Reactive Protein 9.2 mg/L (0.0-4.9); Calcium 8.8 mg/dL (8.5-10.5); Carbon Dioxide 34 mmol/L (22-29); Chloride 87 mmol/L (98-107); Globulin 2.4 g/dL (1.3-4.6); Glomerular Filtration Rate 16.9 mL/min (90-130); Glucose 177 mg/dL (65-115); Magnesium 2.2 mg/dL (1.7-2.3); Osmolality Calculated 304 mOsm/kg (285-295); Phosphorus 4.4 mg/dL (2.5-4.5); Sodium 134 mmol/L (136-145); Total Bilirubin 0.6 mg/dL (0.15-1.2); Total Protein 5.8 g/dL (6.6-8.7)
[2020-02-05 06:44] LABS: INR 1.11 (0.8-1.2)
[2020-02-05 06:57] LABS: Creatine Phosphokinase 9 U/L (39-308)
--- NOTE | 2020-02-05 07:00 | XRR_ITS ---
PROCEDURE INFORMATION: Exam: XR Chest, 1 View Exam date and time: 02/05/2020 12:00 AM Age: 59 years old Clinical indication: Shortness of breath; Additional info: SOB TECHNIQUE: Imaging protocol: XR of the chest Views: 1 view. COMPARISON: CR (CHEST, ) 02/04/2020 6:15 AM FINDINGS: Lungs: There is patchy infiltrate or atelectasis in the left lung base which has improved since previous examination. The right lung is clear. Infiltrates previously seen in the right lung have resolved. Pleural space: There is slight blunting of the left costophrenic angle consistent with minimal effusion which has decreased. Heart/Mediastinum: Unremarkable. No cardiomegaly. Bones/joints: Unremarkable. XR/XR chest 1V portable [id number] IMPRESSION: Further significant improvement of pulmonary infiltrates and left pleural effusion.
[2020-02-05 07:25] LABS: NT Pro B Type Natriuretic Pept > 70000 pg/mL (0-125)
[2020-02-05 07:40] LABS: Procalcitonin 0.15 ng/mL (0-0.5)
--- NOTE | 2020-02-05 08:00 | PC.NURSE ---
this nurse got in report that the garcía was removed in ICU before the transfer. Manage urinary catheter intervention not documented out. upon assessment that patient did not have a garcía.
[2020-02-05] MEDS: doxazosin 4 mg Tablet PO ×2 (08:18→21:02)
[2020-02-05] MEDS: pantoprazole DR 40 mg Tablet PO ×2 (08:18→21:03)
[2020-02-05] MEDS: lidocaine 1% 5 ML in potassium chloride premix 100 ML 25 ML IV (08:19)
[2020-02-05] MEDS: cloNIDine 0.1 mg Tablet 0.3 MG PO ×3 (08:58→21:00)
[2020-02-05] MEDS: hyDRALAzine 10 mg Tablet PO ×3 (08:59→21:02)
[2020-02-05] MEDS: amoxicillin-clav 875-125 mg Tablet 1 TAB PO ×2 (08:59→17:37)
[2020-02-05] MEDS: isosorbide mononitrate ER 30 mg Tablet PO (08:59)
[2020-02-05] MEDS: predniSONE 20 mg Tablet 40 MG PO (09:01)
[2020-02-05] MEDS: carvedilol 6.25 mg Tablet PO (09:01)
[2020-02-05] MEDS: amlodipine 10 mg Tablet PO (09:01)
--- NOTE | 2020-02-05 11:20 | P.PN_ITS ---
Subjective Subjective: Interval history: A little sleepy today, but no other new acute issues. UO 1700mL on diuretic combination No edema and no other high volume Sx. No uremic Sx Passing urine cvomfortably Vitals/I&O/Wt Last Vital Signs Temp 98.0 F 02/05/20 04:00 Pulse 68 02/05/20 11:10 Resp 14 02/05/20 11:10 BP 161/60 02/05/20 08:58 Pulse Ox 95 02/05/20 11:10 02/04/20 02/05/20 02/05/20 22:59 06:59 14:59 Intake Total 480 / 1130 120 / 1250 360 / 360 Output Total 200 / 900 800 / 1700 800 / 800 Balance 280 / 230 -680 / -450 -440 / -440 Weight last 48 hrs Weight 62.732 kg Weight 62.937 kg Physical Exam Narrative: EXAM NARRATIVE: Constitutional: Comfortable HEENT: Wet mucosa, no jvp, non icteric Lungs: Bilaterally clear without discernible wheeze, rales in all lung zones CVS: S1 S2, no murmurs Abdo: Soft, BS ok Ext 4: Minimal edema, peripheral perfusion with no cyanosis Neurological: Grossly non-focal Urinary Catheter Management^: Coude: Cath Placed During This Visit: yes Reason for Continuing Indwelling Catheter: Accurate Measurement of Urinary Output in Critically Ill Patients Urinary Catheter Date of Insertion: 02/01/20 Urinary Catheter Time of Insertion: 02:00 Data : 02/05/20 05:11 02/05/20 05:11 Micro: Microbiology 01/31/20 10:53 Blood Culture - Final Blood NO GROWTH AFTER 5 DAYS 01/31/20 10:49 Blood Culture - Final Blood NO GROWTH AFTER 5 DAYS 02/04/20 06:00 Gram Stain - Final Sputum - Expectorated Sputum Sputum Culture - Preliminary A&P Additional A&P Information 1. Acute kidney injury on CKD. Creatinine increased since yesterday Difficult situation; CRS with the need for high dose combination diuretics, possibly now intravascularly depleted; I agree with diuretics being held Avoid usual nephrotoxic agents Dose medications for GFR less than 30 2. Shortness of breath. Improved, likely to be due to hypervolemia Being treated both for potential pneumonia including broad-spectrum antibiotics including Zosyn, vancomycin and as well as combination diuretics for heart failure. Feels well in this regard 3. Hemodynamics. Bp remains high, Hydralazine added and I will increase Coreg a little too 4. 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
--- NOTE | 2020-02-05 11:46 | PM.PN ---
Subjective Subjective: Interval history: This morning patient was examined, he is on room air, tells me that he is feeling well, no lightheadedness, dizziness, no chest pain, no shortness of breath, overall doing better, had good urine output yesterday Vitals/I&O/Wt Last Vital Signs Temp 98.0 F 02/05/20 04:00 Pulse 68 02/05/20 11:10 Resp 14 02/05/20 11:10 BP 161/60 02/05/20 08:58 Pulse Ox 95 02/05/20 11:10 02/04/20 02/05/20 02/05/20 22:59 06:59 14:59 Intake Total 480 / 1130 120 / 1250 360 / 360 Output Total 200 / 900 800 / 1700 800 / 800 Balance 280 / 230 -680 / -450 -440 / -440 Weight last 48 hrs Weight 62.732 kg Weight 62.937 kg Physical Exam Const: COMMON NORMALS: no acute distress and patient oriented x3 HENMT: COMMON NORMALS: normocephalic HEAD & SCALP: normocephalic Neck/C-Spine: COMMON NORMALS: no JVD Resp: COMMON NORMALS: normal respiratory effort, No retractions, No use of accessory muscles and clear to auscultation bilaterally AUSCULTATION: clear to auscultation bilaterally Cardio: COMMON NORMALS: no JVD, regular rate, regular rhythm, S1 normal heart sound present and S2 normal heart sound present RATE: regular rate RHYTHM: regular rhythm HEART SOUNDS: S1 normal heart sound present and S2 normal heart sound present GI: COMMON NORMALS: Normal to inspection, nondistended, normoactive bowel sounds present, Soft to palpation, non-tender, No hepatosplenomegaly present, no masses and no bruits PALPATION: Yes Soft to palpation and Yes No hepatosplenomegaly present Extremity: COMMON NORMALS: capillary refill normal, no clubbing, cyanosis or edema, no calf tenderness and no pedal edema Neuro: COMMON NORMALS: patient oriented x3 Psych: COMMON NORMALS: mental status grossly normal Urinary Catheter Management^: Coude: Cath Placed During This Visit: yes Reason for Continuing Indwelling Catheter: Accurate Measurement of Urinary Output in Critically Ill Patients Urinary Catheter Date of Insertion: 02/01/20 Urinary Catheter Time of Insertion: 02:00 Data : 02/05/20 05:11 02/05/20 05:11 Micro: Microbiology 01/31/20 10:53 Blood Culture - Final Blood NO GROWTH AFTER 5 DAYS 01/31/20 10:49 Blood Culture - Final Blood NO GROWTH AFTER 5 DAYS 02/04/20 06:00 Gram Stain - Final Sputum - Expectorated Sputum Sputum Culture - Preliminary A&P Assessment and plan (1) Acute respiratory failure with hypoxia: -Secondary to aspiration pneumonia, pulmonary edema, acute combined systolic or diastolic heart failure, COPD exacerbation -Influenza negative, rapid Covid negative CTA 1. No evidence of pulmonary embolus. 2. Small right greater than left pleural effusions with compressive atelectasis in the lung bases. Subtotal subsegmental consolidative atelectasis in the left lower lobe. 3. A few hazy groundglass infiltrates in the right upper lobe and right middle lobe. 4. Reactive anterior mediastinal and peribronchial lymph nodes. 5. 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 Evidence of prior aneurysm repair in the infrarenal abdominal aorta. 6. Aneurysmal upper abdominal aorta measuring 5.1 x 4.4 CM. -History of smoking -History of combined systolic diastolic heart failure, last echo showed EF of 25% -No history of obstructive CAD as per my knowledge, no history of cardiac cath, no history of CABG -Recent hospitalization at [facility], hospitalization for pneumonia, has risk factors for healthcare associate pneumonia -White blood cell count 7.7, hemoglobin 10 -BMP over 70,000, 6-hour troponin 322.3, delta 7.3 -Chest x-ray this morning shows improving pulmonary vascular congestion -However creatinine has increased to 3.7, diuresed over 3 L yesterday PLAN: -Patient is DNR/DNI, confirmed with nurse at bedside -Lovenox for DVT prophylaxis resume today -Solu-Medrol 40 p.o. every 24 hours -DuoNeb treatment -Hold Bumex Bumex decreased to 2 mg every 12 hours, add metolazone 5 mg daily given creatinine of 3.7 L -Cardiology has been consulted -Given DEISI, cardiorenal syndrome, nephrology is on consult -Currently on Augmentin p.o. -Sputum cultures, blood cultures, urine bacterial antigens, urine cultures all so far have been unremarkable -Daily I's and O's, monitor urine output, -Monitor creatinine as received contrast, creatinine 3.7 -Monitor respiratory status closely -BiPAP during the day, as needed, currently on high flow -Speech therapy has seen the patient, mechanical soft diet -Echocardiogram: Shows an EF of LV systolic function is severely reduced with EF of 25 to 30%. Severe global hypokinesis is present. Grade 3 diastolic dysfunction is noted. Severe biatrial enlargement is present. Moderate to severe mitral regurgitation and moderate tricuspid regurgitation is present. Moderate pulmonary hypertension is noted. Elevated right atrial pressure. Plan for today: Continue to monitor CHF, aggressive pulmonary toilet, get up out of bed, monitor urine output, monitor creatinine, hopefully discharge the next 24 hours, will await cardiology recommendation if they want to do a cardiac cath Status: Acute (2) Chronic kidney disease (CKD): -Failed left arm AV fistula, not accessible -Baseline creatinine not known, currently 3.3 , it was high as 3 at [facility] -Has cardiorenal syndrome -Diuresis as above Status: Acute (3) CVA (cerebral vascular accident): -Left-sided weakness -Chronic dysphagia -On [facility] admission, refused modified barium swallow -Was on nectar thickened, transition to thin liquids, then to soft mechanical, then became shortness of breath -soft mechanical diet Status: Acute (4) Dialysis AV fistula malfunction: Status: Acute (5) COPD (chronic obstructive pulmonary disease): Status: Acute (6) Aspiration pneumonia: Status: Acute (7) Acute hyperkalemia: -Status post insulin, D50, calcium gluconate -Stable now Status: Acute (8) Anemia: -Acute on chronic anemia -Currently 9.8 monitor -We will resume his Lovenox today Status: Acute (9) Combined systolic and diastolic heart failure: -Last EF was 25% -I do not know if he has had a coronary angiogram, not in the records, patient denies any coronary angiogram Status: Acute (10) NSTEMI (non-ST elevated myocardial infarction): -6-hour troponin 322.3, delta 7.3 -BNP over 70,000, creatinine 2.8 -EKG shows ST depressions in anterior leads, -Aspirin, statin -Have consulted cardiology Status: Acute (11) Hypertensive urgency: -Norvasc 10 mg daily -Clonidine 0.3 3 times daily -Start Imdur 30 -Monitor blood pressures carefully -If blood pressures are still high try hydralazine 10 3 times daily Status: Acute Attestations Medical Necessity Statement*: Patient requires hospitalization for acute respiratory failure secondary to CHF Time Spent in Patient Care: Greater than 35 minutes (>than 50% of time spent in counselling and/or direct pt care on unit). 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
[2020-02-05] MEDS: TRAMadol 50 mg Tablet 25 MG PO ×2 (11:54→21:08)
[2020-02-05] MEDS: carvedilol 12.5 mg Tablet PO ×2 (11:54→17:37)
[2020-02-05] MEDS: acetaminophen 325 mg Tablet 650 MG PO ×2 (11:54→21:09)
--- NOTE | 2020-02-05 13:37 | PM.PN ---
Subjective Subjective: Interval history: Feeling better would like to go home breathing better. Vitals/I&O/Wt Last Vital Signs Temp 98.0 F 02/05/20 04:00 Pulse 68 02/05/20 11:10 Resp 14 02/05/20 11:10 BP 161/60 02/05/20 08:58 Pulse Ox 95 02/05/20 11:10 02/04/20 02/05/20 02/05/20 22:59 06:59 14:59 Intake Total 480 / 1130 120 / 1250 360 / 360 Output Total 200 / 900 800 / 1700 800 / 800 Balance 280 / 230 -680 / -450 -440 / -440 Weight last 48 hrs Weight 138 lb 4.8 oz Weight 138 lb 12.023 oz Physical Exam Narrative: EXAM NARRATIVE: GENERAL: Patient is sleepy but comfortable NECK: No jugular vein distension. HEENT: No cyanosis. No icterus. No pallor. HEART: Regular S1 and S2. No murmur, rub or gallop. LUNGS: Clear to auscultate bilaterally. ABDOMEN: Soft, nontender and nondistended. Positive bowel sounds. No guarding, rebound or tenderness. CENTRAL NERVOUS SYSTEM: Grossly nonfocal. EXTREMITIES: Lower extremities withour edema bilaterally. Urinary Catheter Management^: Coude: Cath Placed During This Visit: yes Reason for Continuing Indwelling Catheter: Accurate Measurement of Urinary Output in Critically Ill Patients Urinary Catheter Date of Insertion: 02/01/20 Urinary Catheter Time of Insertion: 02:00 Data : 02/05/20 05:11 02/05/20 05:11 Micro: Microbiology 01/31/20 10:53 Blood Culture - Final Blood NO GROWTH AFTER 5 DAYS 01/31/20 10:49 Blood Culture - Final Blood NO GROWTH AFTER 5 DAYS 02/04/20 06:00 Gram Stain - Final Sputum - Expectorated Sputum Sputum Culture - Preliminary A&P Assessment and plan (1) Combined systolic and diastolic heart failure: Status: Acute (2) Acute respiratory failure with hypoxia: Status: Acute (3) COPD (chronic obstructive pulmonary disease): Status: Acute (4) CVA (cerebral vascular accident): Status: Acute (5) Troponin level elevated: Status: Acute (6) Acute kidney injury superimposed on CKD: Status: Acute Stable. Continue medicine. Attestations Medical Necessity Statement*: Patient require continued hospitalization for above defined care. Coding Level of Care Code Established Pt Acute Health Associate for Chg Fwd Patient Type Established History Expanded Problem Focused Exam Expanded Problem Focused Medical Decision Making Moderate Complexity Diagnoses Combined systolic and diastolic heart failure I50.40 Acute respiratory failure with hypoxia J96.01 COPD (chronic obstructive pulmonary disease) J44.9 CVA (cerebral vascular accident) I63.9 Troponin level elevated R77.8 Acute kidney injury superimposed on CKD N17.9; N18.9
--- NOTE | 2020-02-05 20:59 | PC.NURSE ---
Patient lifted up in bed with 2 assist.
[2020-02-05] MEDS: enoxaparin 30 mg/0.3 mL Syringe SUBCUT (21:03)
[2020-02-05] MEDS: gabapentin 100 mg Capsule PO (21:03)
--- NOTE | 2020-02-05 21:33 | PC.NURSE ---
NURSING NOTE: PT IS ALERT AND ORIENTED X4, MOVES ALL EXTREMITIES AND FOLLOWS ALL COMMANDS. PT STATED AT START OF SHIFT, I'VE BEEN IGNORED ALL DAY, NO ONE HAS CHECKED ON ME AT ALL. THIS NURSE RECEIVED THIS COMPLAINT FROM PATIENT AT 191 DURING PHYSICAL ASSESSMENT. BETWEEN 1944 AND 1999 THIS NURSE AND NURSE CHINA ARRIVED AT PATIENT'S ROOM AT THE SAME TIME TO HELP PATIENT TO THE BATHROOM. BETWEEN 2029 AND 2099, THIS NURSE IN ROOM TO GIVE 2100 MEDICATIONS. AT 2114 PT WAS ASSISSTED WITH URINAL PER ANOTHER RN. PT IS CURRENTLY IN BED RESTING. ALL VS AND ASSESSMENTS CHARTED/PAIN ADDRESSED WITH BEDTIME MEDICATIONS. NO DISTRESS NOTED AT THIS TIME.
--- NOTE | 2020-02-05 21:37 | PC.NURSE ---
Checked on patient. Patient did not need anything at this time.
--- NOTE | 2020-02-05 22:14 | PC.NURSE ---
Checked on patient. Patient resting in bed.
--- NOTE | 2020-02-05 23:00 | PC.NURSE ---
Emptied patient's urinal. Asked patient if he needed anything. Patient stated not right now.
--- NOTE | 2020-02-05 23:48 | PC.NURSE ---
Rounding on patient. Vital signs done. Asked patient if he needed anything. Patient stated No.
[2020-02-06] VITALS (15 sets, daily range): BP systolic 142–177; BP diastolic 61–75; PULSE 53–61; RESP 0–16; TEMP 36.2–36.6; O2SAT 87–98
--- NOTE | 2020-02-06 04:58 | PC.NURSE ---
NURSING NOTE: SHIFT SUMMARY: PT ALERT AND ORIENTED X4. MOVES ALL EXTREMITIES AND FOLLOWS ALL COMMANDS. PT UP TO VOID AT BEDSIDE MULTIPLE TIMES THIS SHIFT. LEFT SIDED WEAKNESS NOTED BUT PATIENT STATES THAT IS BASELINE AND IS ABLE TO ASSIST SELF WITH URINAL. C/O PAIN X1 TIME IN LEFT SIDE. MEDICATIONS GIVEN ORDERED AND WERE EFFECTIVE. CURRENTLY RESTING WITH EYES CLOSED, RESP EVEN AND NON LABORED. ALL VS AND ASSESSMENTS CHARTED.
--- NOTE | 2020-02-06 06:04 | PC.NURSE ---
Patient was soiled and used urinal. Patient was cleaned up and linen changed times two assist.
[2020-02-06 06:15] LABS: Alanine Aminotransferase 7 U/L (0-41); Albumin Level 3.4 g/dL (3.5-5.2); Alkaline Phosphatase 81 IU/L (40-130); Anion Gap 13.5 (5-19); Aspartate Amino Transferase 6 U/L (0-40); Blood Urea Nitrogen 71 mg/dL (6-20); C Reactive Protein 5.8 mg/L (0.0-4.9); Calcium 8.9 mg/dL (8.5-10.5); Carbon Dioxide 36 mmol/L (22-29); Chloride 91 mmol/L (98-107); Globulin 2.2 g/dL (1.3-4.6); Glomerular Filtration Rate 22.4 mL/min (90-130); Glucose 191 mg/dL (65-115); Magnesium 2.4 mg/dL (1.7-2.3); Osmolality Calculated 310 mOsm/kg (285-295); Phosphorus 4.4 mg/dL (2.5-4.5); Potassium 3.5 mmol/L (3.5-5.1); Sodium 137 mmol/L (136-145); Total Bilirubin 0.5 mg/dL (0.15-1.2); Total Protein 5.6 g/dL (6.6-8.7)
[2020-02-06 06:23] LABS: Creatine Phosphokinase 8 U/L (39-308)
[2020-02-06] MEDS: sucralfate 1 gm Tablet PO ×2 (06:32→11:42)
[2020-02-06 06:50] LABS: NT Pro B Type Natriuretic Pept > 70000 pg/mL (0-125)
[2020-02-06 07:25] LABS: Eosinophils % 0.1 %; Hematocrit 33.4 % (42.0-52.0); Hemoglobin 10.7 g/dL (11.7-16.6); Lymphocytes # 0.5 10^3/uL (0.8-4.8); Lymphocytes % 6.7 %; Mean Corpuscular Hemoglobin 27.7 pg (28.0-34.0); Mean Corpuscular Volume 86.5 fL (80-94); Mean Platelet Volume 10.1 fL (7.4-10.4); Monocytes # 0.5 10^3/uL (0.2-0.9); Monocytes % 7.1 %; Neutrophils # 5.91 10^3/uL (1.8-7.7); Neutrophils % 85.7 %; Nucleated Red Blood Cells % 0 %; Platelet Count 176 10^3/cmm (130-400); Red Blood Count 3.86 10^6/uL (4.1-5.3); Red Cell Distribution Width 14.6 % (12.1-15.1); White Blood Count 6.9 10^3/uL (4.0-10.0)
[2020-02-06 07:49] LABS: Procalcitonin 0.12 ng/mL (0-0.5)
[2020-02-06] MEDS: isosorbide mononitrate ER 30 mg Tablet PO (08:43)
[2020-02-06] MEDS: doxazosin 4 mg Tablet PO (08:43)
[2020-02-06] MEDS: predniSONE 20 mg Tablet 40 MG PO (08:44)
[2020-02-06] MEDS: aspirin 81 mg EC Tablet PO (08:44)
[2020-02-06] MEDS: amoxicillin-clav 875-125 mg Tablet 1 TAB PO (08:45)
[2020-02-06] MEDS: carvedilol 12.5 mg Tablet PO (08:45)
[2020-02-06] MEDS: amlodipine 10 mg Tablet PO (08:45)
[2020-02-06] MEDS: hyDRALAzine 10 mg Tablet PO ×2 (08:45→15:16)
[2020-02-06] MEDS: pantoprazole DR 40 mg Tablet PO (08:45)
[2020-02-06] MEDS: ipratropium-albuterol 3 mL Neb INHALATION ×2 (09:40→15:57)
--- NOTE | 2020-02-06 11:19 | P.DS_ITS ---
Discharge Providers Date of Admission: 01/31/20 14:44 Date of Discharge: February 06, 2020 Attending Provider at Admission: Erwin Phillips MD Attending Provider at Discharge: Homero Juarez MD Consults: Cardiology: Dr. Botello Primary Care Provider: Wayne Contreras Diagnoses at Discharge Discharge Diagnosis (1) Combined systolic and diastolic heart failure: Status: Acute Permanent problem details: Stable continue current regimen (2) Acute respiratory failure with hypoxia: Status: Acute (3) COPD (chronic obstructive pulmonary disease): Status: Acute (4) CVA (cerebral vascular accident): Status: Acute (5) Troponin level elevated: Status: Acute (6) Acute kidney injury superimposed on CKD: Status: Acute (7) Abdominal aortic aneurysm: Status: Acute Reason for Visit Reason for Visit: DIFFICULTY BREATHING Hospital Course Hospital Course 59 year old male with a past medical history of systolic and diastolic heart failure, ejection fraction of 25%, cardiorenal syndrome history of AAA repair, CKD stage IV, left arm failed fistul, a history of CVA with chronic dysphagia and left-sided weakness, hypertension, hyperlipidemia, GERD, COPD, chronic smoker, who presented to [facility] due to shortness of breath. He was admitted to hospital on February 01, 2020 with complaint of shortness of breath with exertion. At that time he did not have any fever, known exposure to COVID-19. On review of his medication he is on Bumex for heart failure and has a history of CKD with failed left arm fistula, not on dialysis with baseline creatinine ranging from 2.5-2.7. He was admitted to the hospital and started on aggressive IV diuresis for congestive heart failure. On admission he was on BiPAP ventilation to maintain saturations over 90%. Currently he is on room air saturating more than 94%. Patient is on around 4.5 L negative since admission. Echocardiogram was done showed an EF of 2025% with severe global LV hypokinesia with grade 3 diastolic dysfunction, severe biatrial atrial enlargement, moderate to severe mitral regurgitation and moderate tricuspid regurgitation with moderate pulmonary hypertension with RVSP of 50 to 55 mmHg. CTA chest showed no pulmonary embolism but did show aneurysm upper abdominal aorta measuring 5.1 to 4.4 cm. His hospital stay was complicated by acute kidney injury on baseline CKD. For that diuresis was held for 1 day and his creatinine came back to normal. Patient is saturating more than 94% is able to lie down flat in his bed without having any difficulty in breathing on exertion or conversation. He is been discharged in hemodynamically stable condition on oral diuretics. During hospitalization he was found to have elevated blood pressures for which his antihypertensives were adjusted. He is advised to follow-up with his primary care provider within next 1 week and repeat BMP. For abdominal aortic aneurysm he is advised to follow-up with abdominal ultrasound every 6 months to monitor diameter of the aneurysm. Physical Exam Const: COMMON NORMALS: no acute distress and patient oriented x3 GENERAL APPEARANCE: cooperative and comfortable HENMT: COMMON NORMALS: normocephalic HEAD & SCALP: normocephalic Eye: COMMON NORMALS: Equal, round and reactive pupils present and EOMs intact bilaterally GENERAL EYE: appearance normal, both eyes and all related structures PUPIL: Yes Equal, round and reactive pupils present Neck/C-Spine: COMMON NORMALS: full ROM, no lymphadenopathy, no JVD and Thyroid normal THYROID: Thyroid normal Lymph: LYMPHATIC: no lymphadenopathy noted Resp: COMMON NORMALS: normal respiratory effort, No retractions, No use of accessory muscles and clear to auscultation bilaterally EFFORT & INSPECTION: Yes tachypneic and Yes uses accessory muscles AUSCULTATION: clear to auscultation bilaterally, crackles, wheezes and diminished lung sounds bilateral in the lower lung be Cardio: COMMON NORMALS: no JVD, regular rate, regular rhythm, S1 normal heart sound present, S2 normal heart sound present, No gallops present (Cardio), No clicks present (Cardio) and No murmurs present (Cardio) RATE: regular rate RHYTHM: regular rhythm HEART SOUNDS: S1 normal heart sound present and S2 normal heart sound present GI: COMMON NORMALS: Normal to inspection, nondistended, normoactive bowel sounds present, Soft to palpation, non-tender, No hepatosplenomegaly present, no masses and no bruits PALPATION: Yes Soft to palpation and Yes No hepatosplenomegaly present Extremity: COMMON NORMALS: normal to inspection, full ROM, capillary refill normal, no clubbing, cyanosis or edema, no calf tenderness and no pedal edema Neuro: COMMON NORMALS: patient oriented x3, CN's II-XII intact bilaterally, moves all extremities and no focal motor deficits Psych: COMMON NORMALS: mental status grossly normal, Normal thought process present and cooperative THOUGHT PROCESS: Normal thought process present Skin: NARRATIVE SKIN EXAM: Left arm AV fistula Urinary Catheter Management^: Coude: Cath Placed During This Visit: yes Reason for Continuing Indwelling Catheter: Accurate Measurement of Urinary Output in Critically Ill Patients Urinary Catheter Date of Insertion: 02/01/20 Urinary Catheter Time of Insertion: 02:00 Discharge Data Data Completed and Pending: Completed Studies During Hospitalization Category Date Time Status CT angio chest PE protcl [id number] Stat Cat Scan 01/31/20 09:26 Completed XR chest 1V romy ble [id number] Routine Exams 02/01/20 07:00 Completed XR chest 1V romy ble [id number] Routine Exams 02/02/20 07:00 Completed XR chest 1V romy ble [id number] Routine Exams 02/03/20 07:00 Completed XR chest 1V romy ble [id number] Routine Exams 02/04/20 07:00 Completed XR chest 1V romy ble [id number] Routine Exams 02/05/20 07:00 Completed XR chest 1V romy ble [id number] Stat Exams 01/31/20 08:43 Completed CV echo complete* [id number] Urgent Ultrasound 02/01/20 18:23 Completed US renal BI* [id number] Routine Ultrasound 02/01/20 15:27 Completed Pending at discharge Category Date Time Status C Reactive Protei n AM LABS Lab 02/07/20 04:00 Ordered Complete Blood Co unt w/Auto AM LABS Lab 02/07/20 04:00 Ordered Comprehensive Met abolic Panel AM LA BS Lab 02/07/20 04:00 Ordered Immunochemical Fe lilia OCB Routine Lab 02/01/20 07:56 Uncollected Magnesium AM LABS Lab 02/07/20 04:00 Ordered NT Pro B Type Ana riuretic Pept QAM Lab 02/07/20 06:00 Ordered Phosphorus AM LAB S Lab 02/07/20 04:00 Ordered Labs from last 24 hours 02/06/20 02/06/20 02/06/20 05:31 05:31 05:31 WBC RBC Hgb Hct MCV MCH MCHC RDW Plt Count MPV Neut % (Auto) Lymph % (Auto) [place] % (Auto) Eos % (Auto) Baso % (Auto) Neut # (Auto) Lymph # (Auto) [place] # (Auto) Eos # (Auto) Baso # (Auto) Nucleated RBC % (a uto) Nucleated RBCs # PT 14.60 INR 1.10 Sodium 137 Potassium 3.5 Chloride 91 L Carbon Dioxide 36 H Anion Gap 13.5 BUN 71 H Creatinine 2.9 H GFR Calculation 22.4 L Glucose 191 H Calculated Osmolal ity 310 H Calcium 8.9 Phosphorus 4.4 Magnesium 2.4 H Total Bilirubin 0.5 AST 6 ALT 7 Alkaline Phosphata se 81 Creatine Kinase 8 L C-Reactive Protein 5.8 H NT-Pro-B Natriuret Pep > 13820 H Total Protein 5.6 L Albumin 3.4 L Globulin 2.2 Procalcitonin 0.12 02/06/20 05:31 WBC 6.9 RBC 3.86 L Hgb 10.7 L Hct 33.4 L MCV 86.5 MCH 27.7 L MCHC 32.0 RDW 14.6 Plt Count 176 MPV 10.1 Neut % (Auto) 85.7 Lymph % (Auto) 6.7 [place] % (Auto) 7.1 Eos % (Auto) 0.1 Baso % (Auto) 0.0 Neut # (Auto) 5.91 Lymph # (Auto) 0.5 L [place] # (Auto) 0.5 Eos # (Auto) 0.0 Baso # (Auto) 0.0 Nucleated RBC % (a uto) 0 Nucleated RBCs # 0.0 PT INR Sodium Potassium Chloride Carbon Dioxide Anion Gap BUN Creatinine GFR Calculation Glucose Calculated Osmolal ity Calcium Phosphorus Magnesium Total Bilirubin AST ALT Alkaline Phosphata se Creatine Kinase C-Reactive Protein NT-Pro-B Natriuret Pep Total Protein Albumin Globulin Procalcitonin Vitals: Last Vital Signs Temp 97.1 F L 02/06/20 10:50 Pulse 53 L 02/06/20 10:50 Resp 10 L 02/06/20 10:50 BP 175/64 02/06/20 10:50 Pulse Ox 94 02/06/20 10:50 Discharge Plan Discharge Patient Disposition: Xfer SNF Condition: Stable Prescriptions: New hydralazine 10 mg Tablet 10 mg PO TID 30 Days Qty: 90 RF: 0 carvedilol 12.5 mg Tablet 12.5 mg PO BID 30 Days Qty: 60 RF: 0 sucralfate 1 gram Tablet 1 g PO AC&BEDTIME 10 Days Qty: 20 RF: 0 prednisone 20 mg Tablet 40 mg PO DAILY 2 Days Qty: 4 RF: 0 aspirin 81 mg Tablet,Delayed Release (Dr/Ec) 81 mg PO DAILY 30 Days RF: 0 amlodipine 10 mg Tablet 10 mg PO DAILY Qty: 30 RF: 0 pantoprazole 40 mg Tablet,Delayed Release (Dr/Ec) 40 mg PO DAILY 15 Days Qty: 30 RF: 0 amoxicillin-pot clavulanate 875-125 mg Tablet 1 tab PO BID 3 Days Qty: 6 RF: 0 bumetanide 2 mg tablet 2 mg PO BID Qty: 30 RF: 0 isosorbide mononitrate 30 mg Tablet Extended Release 24 Hr 30 mg PO DAILY 30 Days RF: 0 Continued valproic acid 250 mg capsule 250 mg PO DAILY RF: 0 potassium chloride 20 mEq tablet,ER particles/crystals 20 meq PO DAILY RF: 0 gabapentin 100 mg capsule 100 mg PO BEDTIME RF: 0 ProAir HFA 90 mcg/actuation HFA aerosol inhaler 2 puff INHALATION Q6H PRN (Reason: Shortness Of Breath) RF: 0 Changed clonidine HCl 0.1 mg tablet 0.1 mg PO BID PRN (Reason: Systolic blood pressure more than 170 mmHg.) Qty: 0 RF: 0 Discontinued atenolol 100 mg tablet 100 mg PO DAILY RF: 0 doxazosin 2 mg tablet 2 mg PO BID RF: 0 Discharge Orders: Discharge Order (Routine); Ordered 02/06/20 Ordered By: Homero Juarez Referrals: Wayne Contreras [Primary Care Provider] - 4-7 days Discharge Diet: Cardiac Discharge Activity: Resume usual activity Activity Restrictions/Additional Instructions: Antihypertensives were adjusted. Please follow-up with a primary care provider in the next 1 week and repeat a BMP. Discharge Attestations Time Spent in Discharge Care*: greater than 30 min Specific Discharge Activities: educating patient, discussing with egg caser/social workers/dc planners, documenting/other paperwork and evaluating patient/reviewing data Status at Discharge: Cognitive status at discharge: cognitively intact , Behavioral status at discharge: cooperative , Functional status at discharge: other assisted ambulation Overall status at discharge: patient is back to baseline Quality Metrics Clinical Quality Measures During this hospital stay, did patient experience: None Coding Level of Care Code 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
--- NOTE | 2020-02-06 11:22 | PC.NURSE ---
Spoke with Dr. Juarez regarding patient's blood pressure medications and surrent BP. OK to hold clonidine for now.
--- NOTE | 2020-02-06 12:00 | P.PN_ITS ---
Subjective Subjective: Interval history: No new issues. Feels better, breathing has improved Diuretics held yesterday N0 oedema and no other volume assoc Sx No uremic Sx Vitals/I&O/Wt Last Vital Signs Temp 97.1 F L 02/06/20 10:50 Pulse 53 L 02/06/20 10:50 Resp 10 L 02/06/20 10:50 BP 175/64 02/06/20 10:50 Pulse Ox 94 02/06/20 10:50 02/05/20 02/06/20 02/06/20 22:59 06:59 14:59 Intake Total 240 / 840 120 / 120 Output Total 1050 / 1850 800 / 2650 Balance -810 / -1010 -800 / -1810 120 / 120 Weight last 48 hrs Weight 62.596 kg Weight 62.732 kg Physical Exam Narrative: EXAM NARRATIVE: Constitutional: Comfortable HEENT: Wet mucosa, no jvp, non icteric Lungs: Bilaterally clear without discernible wheeze, rales in all lung zones CVS: S1 S2, no murmurs Abdo: Soft, BS ok Ext 4: Minimal edema, peripheral perfusion with no cyanosis Neurological: Grossly non-focal Urinary Catheter Management^: Coude: Cath Placed During This Visit: yes Reason for Continuing Indwelling Catheter: Accurate Measurement of Urinary Output in Critically Ill Patients Urinary Catheter Date of Insertion: 02/01/20 Urinary Catheter Time of Insertion: 02:00 Data : 02/06/20 05:31 02/06/20 05:31 Micro: Microbiology 02/04/20 06:00 Gram Stain - Final Sputum - Expectorated Sputum Sputum Culture - Final 01/31/20 10:53 Blood Culture - Final Blood NO GROWTH AFTER 5 DAYS 01/31/20 10:49 Blood Culture - Final Blood NO GROWTH AFTER 5 DAYS A&P Additional A&P Information 1. Acute kidney injury on CKD. Creatinine improved after holding diuretics Difficult situation; CRS with the need for high dose combination diuretics, possibly now intravascularly depleted; I agree with diuretics being held Avoid usual nephrotoxic agents Dose medications for GFR less than 30 2. Shortness of breath. Improved, likely to be due to hypervolemia Being treated both for potential pneumonia including broad-spectrum antibiotics including Zosyn, vancomycin and as well as combination diuretics for heart failure. Feels well in this regard 3. Hemodynamics. Bp remains high, Hydralazine added and I will increase Coreg a little too 4.Lytes look good - ok to go to rehab/SNF from my perspective Amaury Monterroso MD Nephrology [phone] Patient seen and examined via telemedicine, with the assistance of the bedside RN Attestations Medical Necessity Statement*: eval for DEISI Coding Level of Care Code Acute Consumer Relations Complaint Clerk for Chg Radha
== END 2020-02-06 17:15 | disposition skilled nursing facility (03) | DRG 177 ==
LOC: ER 14:48 → ICU 17:08 → CSU 02-04 15:56
PROVIDERS: Internal Medicine; Admitting Provider Family Medicine; Emergency Provider Family Medicine; PCP Physician Assistant Medical; Visit Provider Student in an Organized Health Care Education/Training Program
DX: J69.0 Pneumonitis due to inhalation of food and vomit (principal); J96.01 Acute respiratory failure with hypoxia; I50.43 Acute on chronic combined systolic (congestive) and diastolic (congestive) heart failure; I21.4 Non-ST elevation (NSTEMI) myocardial infarction; N18.4 Chronic kidney disease, stage 4 (severe); I13.0 Hypertensive heart and chronic kidney disease with heart failure and stage 1 through stage 4 chronic kidney disease, or unspecified chronic kidney disease; J44.1 Chronic obstructive pulmonary disease with (acute) exacerbation; I69.354 Hemiplegia and hemiparesis following cerebral infarction affecting left non-dominant side; N17.9 Acute kidney failure, unspecified; Z66 Do not resuscitate; D64.9 Anemia, unspecified; E87.5 Hyperkalemia; I71.4 Abdominal aortic aneurysm, without rupture; K21.9 Gastro-esophageal reflux disease without esophagitis; I69.391 Dysphagia following cerebral infarction; R13.10 Dysphagia, unspecified; I34.0 Nonrheumatic mitral (valve) insufficiency; I36.1 Nonrheumatic tricuspid (valve) insufficiency; I27.20 Pulmonary hypertension, unspecified; I16.0 Hypertensive urgency; Z87.891 Personal history of nicotine dependence; Z20.828 Contact with and (suspected) exposure to other viral communicable diseases
CPT/HCPCS: 12345; 36415; 36416; 36430; 36600; 51702; 71045; 71275; 76770; 80051; 80053; 80061; 80202; 82330; 82436; 82550; 82570; 82728; 82803; 82805; 82962; 83036; 83540; 83605; 83615; 83735; 83880; 84100; 84133; 84145; 84300; 84443; 84484; 84540; 85025; 85045; 85378; 85384; 85610; 85999; 86140; 86403; 86850; 86900; 86920; 87040; 87070; 87205; 87426; 87635; 87641; 87804; 92523; 92526; 92610; 93005; 93306; 94640; 94660; 96372; 96375; 97110; 97116; 97161; 97166; 97530; 97535; 99283; C9113; J0456; J0610; J1650; J1815; J1940; J1956; J2543; J2920; J3370; J3480; J3490; J7030; J7050; J7512; P9016; Q0144; Q3014

== ENCOUNTER 2020-02-20 23:54 | Emergency (ER) | payer MEDICAID, SELFPAY ==
--- NOTE | 2020-02-20 23:56 | ECG_ITS ---
[facility] Test Date: 2020-02-21 Pat Name: James Bell Department: Room: Gender: Male Building Carpenter: : 1960 Requested By: Valentin Machuca Order Number: [id number] Solomon MD: Salomon Butterfield M.D. Measurements Intervals [place] Rate: 95 P: 85 KS: 166 QRS: 59 QRSD: 100 T: 121 QT: 344 QTc: 434 Interpretive Statements SINUS RHYTHM LEFT VENTRICULAR HYPERTROPHY AND ST-T CHANGE [VOLTAGE CRITERIA PLUS ST/T ABNORMALITY] Compared to ECG 02/03/2020 05:39:23 Left ventricular hypertrophy now present ST (T wave) deviation now present T-wave abnormality no longer present Possible ischemia no longer present Electronically Signed On 02-21-2020 9:38:36 BUSINESS SOLUTION ANALYST by Salomon Butterfield M.D. [id number]
--- NOTE | 2020-02-20 23:56 | XRR_ITS ---
PROCEDURE INFORMATION: Exam: XR Chest, 1 View Exam date and time: 02/20/2020 12:36 AM Age: 59 years old Clinical indication: Shortness of breath; Prior surgery; Surgery type: Aaa; Patient HX: Left sided weakness, low o2; Additional info: SOB TECHNIQUE: Imaging protocol: XR of the chest Views: 1 view. COMPARISON: CR (CHEST, ) 02/05/2020 8:05 AM FINDINGS: Lungs: Diffuse prominent pulmonary consolidations. Linear external opacities or atelectasis retrocardiac left lower lung and lateral left lung. Vascular congestion or low-grade interstitial edema superimposed is not excluded. Pleural space: No pneumothorax. Heart/Mediastinum: Cardiomegaly persist. Bones/joints: Degenerative change of the spine. Osteopenia. Gastrointestinal tract: Gaseous distention of bowel upper abdomen. Other findings: Small left effusion. XR/XR chest 1V portable [id number] IMPRESSION: 1. Cardiomegaly. 2. Prominent pulmonary consolidations bilaterally suspicious for pneumonia and could reflect viral pneumonia. 3. Left pleural effusion. 4. Question developing pulmonary venous congestion or possible interstitial edema.
--- NOTE | 2020-02-20 23:56 | CTR_ITS ---
PROCEDURE INFORMATION: Exam: CT Head Without Contrast Exam date and time: 02/20/2020 12:06 AM Age: 59 years old Clinical indication: Altered mental status/memory loss; Additional info: CVA TECHNIQUE: Imaging protocol: Computed tomography of the head without contrast. Radiation optimization: All CT scans at this facility use at least one of these dose optimization techniques: automated exposure control; mA and/or kV adjustment per patient size (includes targeted exams where dose is matched to clinical indication); or iterative reconstruction. Other technique: STROKE PROTOCOL was implemented. COMPARISON: MR head wo con* [id number] 07/12/2019 2:18 PM RADIATION DOSE METRICS: Total DLP (mGy-cm): 1664.04 FINDINGS: Motion degradation noted. Brain: Encephalomalacia again seen at right frontoparietal junction. Encephalomalacia also suggested involving small portion of right temporal lobe. Chronic lacunar infarcts at caudate heads and right thalamus. No findings of intracranial hemorrhage. Cerebral ventricles: No ventriculomegaly. Bones/joints: No acute findings. Paranasal sinuses: Visualized sinuses are unremarkable. No fluid levels. Mastoid air cells: Visualized mastoid air cells are well aerated. Soft tissues: Unremarkable. CT/CT head wo con* [id number] IMPRESSION: No acute intracranial abnormality. ASSESSMENT: ASPECTS ([place] Stroke Program Early CT Score) is 10. Radiation Dose CTDIVOL = (mGy): DLP = 1664.04 (mGy-cm)
--- NOTE | 2020-02-20 23:58 | W.ED.NEUROSD ---
HPI - Neuro Symptoms/Deficit General: Chief Complaint: Neuro Symptoms/Deficit Stated Complaint: STROKE Time Seen by Provider: 02/20/20 23:55 Source: patient and EMS Mode of arrival: EMS Limitations: no limitations History of Present Illness: HPI Narrative: 59-year-old male who is here from local custodial with left-sided weakness. Patient per custodial nurses been talking the patient at 1030 and he had no weakness went back at 11 is patient called her in the room was unable to walk. Patient was unable to move his left leg or his left arm. Patient still is unable to move that arm or leg. He states he had some shortness of breath to and does have a history of congestive heart failure. Denies any cough or fever. Associated symptoms: Deny chest pain, nausea or vomiting Review of Systems Const: Denies: fever(s), chills, body aches or change in appetite Eyes: Denies: blurry vision or eye discomfort ENMT: Denies: throat pain or dental pain Card: Denies: chest pain Resp: Denies: dyspnea GI: Denies: abdominal pain, nausea, vomiting or diarrhea : Denies: dysuria Musc: Denies: neck pain or back pain Skin/Breast: Denies: rash Neuro: Reports: numbness in extremities and weakness in extremities Psych: Denies: depression Otto/Lymph: Denies: easy bruising All/Imm: Denies: urticaria PFSH ED PFSH: Medical History Combined systolic and diastolic heart failure Stable continue current regimen COPD (chronic obstructive pulmonary disease) CVA (cerebral vascular accident) Dialysis AV fistula malfunction Dysphagia Surgical History History of AAA (abdominal aortic aneurysm) repair Family History Father AAA (abdominal aortic aneurysm, ruptured) Social History Smoking and tobacco status: former smoker Alcohol intake: former NIH stroke score NIHSS: Level Of Consciousness - 1a: 0 Level Of Consciousness Questions - 1b: Both Correct Level Of Consciousness Commands - 1c: Both Correct Best Gaze - 2: Normal Visual [place] - 3: No Visual Loss Facial Palsy - 4: Normal Motor Arm Right - 5: No Drift Motor Arm Left - 5: No Effort Against [place] Motor Leg Right - 6: No Drift Motor Leg Left - 6: No Movement Limb Ataxia - 7: Absent Sensory - 8: Normal Best Language - 9: No Aphasia Dysarthia - 10: Normal Extinction And Inattention - 11: 0 Score: Total Score: 7 Physical Exam Const: COMMON NORMALS: no acute distress, patient oriented x3 and healthy appearing HENMT: COMMON NORMALS: normocephalic and atraumatic HEAD & SCALP: normocephalic and atraumatic Eye: COMMON NORMALS: Equal, round and reactive pupils present and EOMs intact bilaterally PUPIL: Yes Equal, round and reactive pupils present Neck/C-Spine: COMMON NORMALS: full ROM and supple Chest: COMMONS NORMALS: normal inspection of the chest and normal palpation of entire chest wall Resp: COMMON NORMALS: normal respiratory effort, No retractions, No use of accessory muscles and clear to auscultation bilaterally AUSCULTATION: clear to auscultation bilaterally Cardio: COMMON NORMALS: regular rate, regular rhythm and No murmurs present (Cardio) RATE: regular rate RHYTHM: regular rhythm GI: COMMON NORMALS: Normal to inspection, nondistended, normoactive bowel sounds present, Soft to palpation, non-tender and no masses PALPATION: Yes Soft to palpation Extremity: COMMON NORMALS: normal to inspection and full ROM Neuro: COMMON NORMALS: patient oriented x3 and no focal motor deficits OTHER: No aphasia. Patient has no strength in left leg or left arm and is unable to lift it against gravity. Psych: COMMON NORMALS: mental status grossly normal, Normal thought process present and cooperative THOUGHT PROCESS: Normal thought process present Skin: COMMON NORMALS: no rashes or lesions noted and no wounds GENERAL SKIN EXAM: no rashes or lesions noted Course Vital Signs: Vital signs: Vital Signs Temperature 98.7 F 02/21/20 00:17 Pulse Rate 81 02/21/20 01:20 Respiratory Rate 19 H 02/21/20 00:40 Blood Pressure 156/62 02/21/20 01:20 Pulse Oximetry 99 02/21/20 01:20 MDM - Neuro Symptoms/Deficit MDM Narrative: Medical decision making narrative: James presents here with an acute CVA. Patient's last known normal was 1030. Patient's NIH here is 7 and patient consented to TPA. I spoke to neurologist on-call Dr. Gan also believe the patient was a strong TPA candidate. Patient is administered TPA here. He does have a history of CHF and chest x-ray does show pulmonary edema and patient started on BiPAP. Patient while here has had some return of function was able to squeeze my hand with his left hand is able to move his foot at this time. Patient transferred to [place] for higher level of care also as we have no bed availability as well. Lab Data: Labs: Lab Results 02/20/20 02/20/20 02/20/20 Range/Units 23:35 23:35 23:35 WBC 11.3 H (4.0-10.0) 10^3/ uL RBC 3.70 L (4.1-5.3) 10^6/u L Hgb 10.0 L (11.7-16.6) g/dL Hct 33.9 L (42.0-52.0) % MCV 91.6 (80-94) fL MCH 27.0 L (28.0-34.0) pg MCHC 29.5 L (30.0-36.0) g/dL RDW 13.9 (12.1-15.1) % Plt Count 183 (130-400) 10^3/c mm MPV 9.8 (7.4-10.4) fL Neut % (Auto) 88.7 % Lymph % (Auto) 5.7 % Pershing % (Auto) 2.9 % Eos % (Auto) 1.9 % Baso % (Auto) 0.4 % Neut # (Auto) 10.04 H (1.8-7.7) 10^3/u L Lymph # (Auto) 0.7 L (0.8-4.8) 10^3/u L Pershing # (Auto) 0.3 (0.2-0.9) 10^3/u L Eos # (Auto) 0.2 (0.0-0.8) 10^3/u L Baso # (Auto) 0.1 (0.0-0.1) 10^3/u L Nucleated RBC % (a uto) 0 % Nucleated RBCs # 0.0 /100WBC PT 14.30 (12.1-14.9) SECO NDS INR 1.07 (0.8-1.2) Sodium 136 (136-145) mmol/L Potassium 4.9 (3.5-5.1) mmol/L Chloride 96 L (98-107) mmol/L Carbon Dioxide 23 (22-29) mmol/L Anion Gap 21.9 H (5-19) BUN 43 H (6-20) mg/dL Creatinine 2.6 H (0.7-1.2) mg/dL GFR Calculation 25.4 L (90-130) mL/min Glucose 191 H (65-115) mg/dL Calculated Osmolal ity 298 H (285-295) mOsm/k g Calcium 9.2 (8.5-10.5) mg/dL Magnesium 2.3 (1.7-2.3) mg/dL Total Bilirubin 0.6 (0.15-1.2) mg/dL AST 9 (0-40) U/L ALT 7 (0-41) U/L Alkaline Phosphata se 110 (40-130) IU/L NT-Pro-B Natriuret Pep 94165 H (0-125) pg/mL Total Protein 7.1 (6.6-8.7) g/dL Albumin 3.6 (3.5-5.2) g/dL Globulin 3.5 (1.3-4.6) g/dL SARS-CoV-2 Ag (Rap id) (Negative) 02/21/20 Range/Units 00:21 WBC (4.0-10.0) 10^3/ uL RBC (4.1-5.3) 10^6/u L Hgb (11.7-16.6) g/dL Hct (42.0-52.0) % MCV (80-94) fL MCH (28.0-34.0) pg MCHC (30.0-36.0) g/dL RDW (12.1-15.1) % Plt Count (130-400) 10^3/c mm MPV (7.4-10.4) fL Neut % (Auto) % Lymph % (Auto) % Pershing % (Auto) % Eos % (Auto) % Baso % (Auto) % Neut # (Auto) (1.8-7.7) 10^3/u L Lymph # (Auto) (0.8-4.8) 10^3/u L Pershing # (Auto) (0.2-0.9) 10^3/u L Eos # (Auto) (0.0-0.8) 10^3/u L Baso # (Auto) (0.0-0.1) 10^3/u L Nucleated RBC % (a uto) % Nucleated RBCs # /100WBC PT (12.1-14.9) SECO NDS INR (0.8-1.2) Sodium (136-145) mmol/L Potassium (3.5-5.1) mmol/L Chloride (98-107) mmol/L Carbon Dioxide (22-29) mmol/L Anion Gap (5-19) BUN (6-20) mg/dL Creatinine (0.7-1.2) mg/dL GFR Calculation (90-130) mL/min Glucose (65-115) mg/dL Calculated Osmolal ity (285-295) mOsm/k g Calcium (8.5-10.5) mg/dL Magnesium (1.7-2.3) mg/dL Total Bilirubin (0.15-1.2) mg/dL AST (0-40) U/L ALT (0-41) U/L Alkaline Phosphata se (40-130) IU/L NT-Pro-B Natriuret Pep (0-125) pg/mL Total Protein (6.6-8.7) g/dL Albumin (3.5-5.2) g/dL Globulin (1.3-4.6) g/dL SARS-CoV-2 Ag (Rap id) Negative (Negative) Imaging Data^: CT Head: Radiologist's impression: [address] [address] [address] Scan Report Signed Patient: James Bell Unit #: [id number] : 1960 Age/Sex: 59 / M ADM Date: 02/20/20 Loc: ER Room/Bed: Attending Dr: Ordering Provider/Ordering MD: Valentin Machuca MD Date of Service: 02/20/20 Procedure(s): CT head wo con* [id number] Accession Number(s): [id number] Report Number: [id number] PROCEDURE INFORMATION: Exam: CT Head Without Contrast Exam date and time: 02/20/2020 12:06 AM Age: 59 years old Clinical indication: Altered mental status/memory loss; Additional info: CVA TECHNIQUE: Imaging protocol: Computed tomography of the head without contrast. Radiation optimization: All CT scans at this facility use at least one of these dose optimization techniques: automated exposure control; mA and/or kV adjustment per patient size (includes targeted exams where dose is matched to clinical indication); or iterative reconstruction. Other technique: STROKE PROTOCOL was implemented. COMPARISON: MR head wo con* [id number] 07/12/2019 2:18 PM RADIATION DOSE METRICS: Total DLP (mGy-cm): 1664.04 FINDINGS: Motion degradation noted. Brain: Encephalomalacia again seen at right frontoparietal junction. Encephalomalacia also suggested involving small portion of right temporal lobe. Chronic lacunar infarcts at caudate heads and right thalamus. No findings of intracranial hemorrhage. Cerebral ventricles: No ventriculomegaly. Bones/joints: No acute findings. Paranasal sinuses: Visualized sinuses are unremarkable. No fluid levels. Mastoid air cells: Visualized mastoid air cells are well aerated. Soft tissues: Unremarkable. CT/CT head wo con* [id number] IMPRESSION: No acute intracranial abnormality. CXR: Attestation: I personally reviewed and interpreted this imaging study as follows: My impression: Pulmonary edema EKG Data^: EKG 1: Attestation: I personally reviewed and interpreted this EKG as follows: EKG interpretation date: 02/21/20 EKG interpretation time: 00:16 Interpretation: nsr hr [address] or t wave abnormalities qrs 100 qtc 397 Critical Care Time Critical Care Time: Critical Care Time: Yes Total Critical Care Time: 36 Attestation: This case had a high probability of a clinically significant, sudden, or life threatening deterioration of this patient's condition which required my full and direct attention, intervention and personal management. Discharge Plan Discharge Patient Disposition: Xfer Other Clinical Impression: CHF exacerbation CVA (cerebral vascular accident) Qualifiers: CVA mechanism: unspecified Qualified Code(s): I63.9 - Cerebral infarction, unspecified Condition: Stable Referrals: Wayne Contreras [Primary Care Provider] - Coding Level of Care Code ED Medication Care Manager for Chg Fwd Exam Comprehensive
[2020-02-21] VITALS (40 sets, daily range): BP systolic 127–164; BP diastolic 51–92; PULSE 77–101; RESP 8–24; TEMP 37.1; O2SAT 79–100; BMI 25.0
[2020-02-21 00:10] LABS: Basophils # 0.1 10^3/uL (0.0-0.1); Basophils % 0.4 %; Eosinophils # 0.2 10^3/uL (0.0-0.8); Eosinophils % 1.9 %; Hematocrit 33.9 % (42.0-52.0); Lymphocytes # 0.7 10^3/uL (0.8-4.8); Lymphocytes % 5.7 %; Mean Corpuscular HGB Conc 29.5 g/dL (30.0-36.0); Mean Corpuscular Volume 91.6 fL (80-94); Mean Platelet Volume 9.8 fL (7.4-10.4); Monocytes # 0.3 10^3/uL (0.2-0.9); Monocytes % 2.9 %; Neutrophils # 10.04 10^3/uL (1.8-7.7); Neutrophils % 88.7 %; Nucleated Red Blood Cells % 0 %; Platelet Count 183 10^3/cmm (130-400); Red Cell Distribution Width 13.9 % (12.1-15.1); White Blood Count 11.3 10^3/uL (4.0-10.0)
[2020-02-21 00:20] LABS: INR 1.07 (0.8-1.2)
[2020-02-21 00:40] LABS: Alanine Aminotransferase 7 U/L (0-41); Albumin Level 3.6 g/dL (3.5-5.2); Alkaline Phosphatase 110 IU/L (40-130); Anion Gap 21.9 (5-19); Aspartate Amino Transferase 9 U/L (0-40); Blood Urea Nitrogen 43 mg/dL (6-20); Calcium 9.2 mg/dL (8.5-10.5); Carbon Dioxide 23 mmol/L (22-29); Chloride 96 mmol/L (98-107); Globulin 3.5 g/dL (1.3-4.6); Glomerular Filtration Rate 25.4 mL/min (90-130); Glucose 191 mg/dL (65-115); Magnesium 2.3 mg/dL (1.7-2.3); Osmolality Calculated 298 mOsm/kg (285-295); Potassium 4.9 mmol/L (3.5-5.1); Sodium 136 mmol/L (136-145); Total Bilirubin 0.6 mg/dL (0.15-1.2); Total Protein 7.1 g/dL (6.6-8.7)
[2020-02-21] MEDS: piperacillin-tazobactam 2.25 GM in sodium chloride 0.9% (plus) 50 ML IV (01:25)
[2020-02-21 01:34] LABS: SARS Covid-2 Antigen Negative (Negative)
[2020-02-21] MEDS: vancomycin 1,000 MG in sodium chloride 0.9% 250 ML 250 MG IV (02:11)
--- NOTE | 2020-02-21 04:00 | PC.NURSE ---
Gave bedside report to [facility] crew, pt loading and leaving facility. [facility] unable to transport pt due to pt being on Bipap.
--- NOTE | 2020-02-21 04:03 | PC.NURSE ---
Called and gave report to Zenaida Clemons RN at at [phone]
--- NOTE | 2020-02-21 19:26 | PM.SAN ---
Stroke Alert Activation ED Arrival Date: 02/20/20 ED Arrival Time: 23:54 ED Physican at Bedside: 23:54 Last Known Normal/at Baseline: 1-2 hours ago Other Last Known Well Infomation: I was called stat for stroke team when [facility] activated stroke team for this 59-year-old man who was recuperating at the snf from congestive heart failure. He has a previous history of stroke and normally ambulates independently with a walker. Stroke alert was called prior to the patient's arrival and I called the emergency room and got a thorough report from Amaury. He had gotten the impression that the stroke was of almost immediate onset and caused dense left hemiplegia. He was aware that the patient was staying at [facility] so I called and talked with the nurse that called the ambulance. She said that the patient raise the alarm at 11 PM, calling out for help. When the nurse arrived she found that he had left hemiplegia and was having trouble talking. The time when the patient was last known to be normal was at 1030 when he was seen by the nurses aide. I talked with the nurses aide who reported that she entered the patient's room and had a conversation with him and that his speech was normal and he was moving all 4 extremities by the time I completed my history, Dr. Machuca had evaluated the patient and performed a brief stroke scale with a score of 7, though by description the patient had no movement in his left arm or leg and was mildly dysarthric so his score would be 9. In any case, his blood pressure was under good control at 136/70, his Accu-Chek was 240, his CT scan of the head have been reviewed by the radiologist and no acute changes were found. We agreed that TPA was appropriate. Stroke Alert Activated by: [facility] Stroke Alert Activation Time: 23:30 Stroke MD @ Bedside Time: 23:30 (Telemetry stroke) NIH Stroke Scale Score: NIH Stroke Scale Score: 8 Stroke Alert Data/Treatment Time to CT of Head: 23:54 CT Impression: Unremarkable with no acute changes tPA Started Date: 02/21/20 tPA Started Time: tPA Started - Time: 02:05 Other Information: I reviewed the patient's stroke tracking sheet the morning after. I was called for stroke alert because [facility] activated the stroke team for acute onset of left hemiparesis that was observed by the nursing staff at [facility]. I took a history from the nurses that observed him to be normal 30 minutes before he called for help. As soon as I finished I called back to the emergency department and talked with Dr. Machuca, who had already evaluated the patient and the CAT scan had already been completed, his Accu-Chek was 240, he was not on anticoagulants and his blood pressure was normal. We agreed that he should receive TPA and my phone call when out at 11:58 PM on 19 February. The stroke tracking sheet indicates that the order for TPA was given at 0200 on 20 February and the drug was administered bolus at 0205. That cannot be correct and if so, there is no account for a 2-hour delay. The patient was transferred to [place] merely because we had no beds. A higher level of care was not required.. Critical Care Time Critical Care Time: less than 30 mins Coding Level of Care Code Acute Clinical Psychology Professor for Harjit Garcia
== END 2020-02-21 04:03 | disposition other institution (70) ==
PROVIDERS: Emergency Provider Emergency Medicine; PCP Physician Assistant Medical
DX: I63.9 Cerebral infarction, unspecified (principal); I11.0 Hypertensive heart disease with heart failure; I50.9 Heart failure, unspecified; J44.9 Chronic obstructive pulmonary disease, unspecified; Z87.891 Personal history of nicotine dependence
CPT/HCPCS: 12345; 70450; 71045; 80053; 83735; 83880; 85025; 85610; 87040; 87426; 93005; 96365; 96366; 96367; 96375; 99284; 99291; J2543; J2997; J3370; J7050